=== PATIENT | female | born 1955 | race Caucasian/White ===

== ENCOUNTER 2022-04-02 12:45 | Outpatient (CLI) | payer MEDICARE, BC, SELFPAY ==
[2022-04-02 21:38] LABS: Albumin* 4.6 g/dL (3.3-5.0); Chloride* 105 mmol/L (96-114)
[2022-04-02 21:39] LABS: Potassium* 4.4 mmol/L (3.6-5.1); Sodium* 140 mmol/L (135-149)
[2022-04-02 21:41] LABS: Carbon Dioxide* 28 mmol/L (20-32); Cholesterol* 174 mg/dL (90-199); Creatinine* 0.8 mg/dL (0.5-1.5); Estimated Glomerular Filt Rate 80 ml/min
[2022-04-02 21:42] LABS: Alanine Aminotransferase* 31 U/L (4-35); Alkaline Phosphatase* 71 U/L (40-150); Aspartate Amino Transferase* 36 U/L (12-35); Bilirubin Total* 0.9 mg/dL (0.1-1.5); Blood Urea Nitrogen* 12 mg/dL (7-30); Calcium* 9.8 mg/dL (8.4-10.6); Glucose* 100 mg/dL (60-115); Triglycerides* 178 mg/dL (40-149)
[2022-04-02 21:43] LABS: HDL Cholesterol* 105 mg/dL (>=50); LDL Cholesterol Calculated 33 mg/dL (<100)
[2022-04-02 21:54] LABS: Vitamin D 25 Hydroxy* 38 ng/mL (30-80)
[2022-04-02 22:27] LABS: Vitamin B12* 479 pg/mL (243-894)
== END 2022-04-02 12:46 | disposition home or self-care (01) ==
PROVIDERS: PCP Physician Assistant Medical; Visit Provider Physician Assistant Medical
DX: Z01.419 Encounter for gynecological examination (general) (routine) without abnormal findings (principal); E78.5 Hyperlipidemia, unspecified; I10 Essential (primary) hypertension; M85.80 Other specified disorders of bone density and structure, unspecified site; R53.83 Other fatigue
CPT/HCPCS: 80053; 80061; 82306; 82607; 84443

== ENCOUNTER 2022-04-24 12:35 | Outpatient (CLI) | payer MEDICARE, BC, SELFPAY ==
--- NOTE | 2022-04-24 13:00 | CRLHL7_ITS ---
For Patients: As a result of the Century Cures Act, medical imaging exams and procedure reports are released immediately into your electronic medical record. You may view this report before your referring provider. If you have questions, please contact your health care provider. DXA BONE MINERAL DENSITY STUDY Current height (in): 63.0. Weight (lb): 160.0. Menopause age: 50. Ethnicity: White. Reason for exam: Post menopausal status. 1. Have you had a previous hip or vertebral fracture? No. 2. Have you had any fractures during your adult life which did not result from significant trauma (e.g., auto accident)? No. 3. Did either of your parents have a hip fracture? No. 4. Do you smoke? No. 5. Have you ever taken Glucocorticoids? No. 6. Do you have rheumatoid arthritis? Yes. 7. Do you have secondary osteoporosis? No. 8. Do you drink 3 or more alcoholic drinks per day? Yes. 9. Are you being treated for osteoporosis? No. 10. Have you ever taken any of the following medications: Actonel, Evista, Fosamax, Miacalcin, Reclast, Boniva, Forteo, HRT (i.e. estrogen/hormone therapy), Protelos, Prolia, Vitamin D, Calcium, other ??? please specify. ANSWER: Yes, calcium, vitamin D. 11. Do you have any of the following medical conditions: Anorexia or bulimia, asthma or emphysema, end stage renal disease, hyperparathyroidism, any seizure disorders, cancer, inflammatory bowel diseases, hysterectomy, other ??? please specify. ANSWER: No. 12. What was your maximum height (inches)? 64. 13. Do you perform weight bearing exercise regularly? Yes. 14. Do you regularly consume dairy products? Yes. 15. Do you drink caffeinated beverages? Yes. 16. At what age did your period start? 10. 17. Are you premenopausal? No. 18. How many full term pregnancies have you had? 2. 19. Have you ever missed your period for more than 6 months in a row (not including or menopause)? No. TECHNIQUE: Bone mineral density study was performed using the [employer]. FINDINGS: The results of the study expressed as bone mineral density (BMD) are as follows: Lumbar spine L1 to L4: BMD: 0.930 g/cm2. T-score: -1.1. Z-score: 1.0. Neck Left: BMD: 0.717 g/cm2. T-score: -1.2. Z-score: 0.6. Right: BMD: 0.781 g/cm2. T-score: -0.6. Z-score: 1.1. Total Left: BMD: 0.843 g/cm2. T-score: -0.8. Z-score: 0.6. Right: BMD: 0.860 g/cm2. T-score: -0.7. Z-score: 0.8. IMPRESSION: Osteopenia. *Comparison exams done prior to 09/2019 were performed on different unit, [employer]. COMPARISON: Compared with scan of 04/11/2019, the bone mineral density has increased by 2.0 percent at the spine and decreased by 0.9 percent at the hip. FRAX 10-year Fracture Risk Major Osteoporotic Fracture: 14 percent Hip Fracture: 2.1 percent Reported Risk Factors: [place] () Neck BMD = 0.717, BMI = 28.3 Reno Wilburn M.D. Diagnostic Radiologist [email or web address] Transcribed: 8:37 pm DW/Dictated by: Reno Wilburn MD @ 04/25/2022 11:27:00 AM (Electronically Signed)
== END 2022-04-24 12:36 | disposition home or self-care (01) ==
LOC: RAD 12:36
PROVIDERS: PCP Physician Assistant Medical; Visit Provider Physician Assistant Medical
DX: Z78.0 Asymptomatic menopausal state (principal); M85.89 Other specified disorders of bone density and structure, multiple sites
CPT/HCPCS: 77080

== ENCOUNTER 2022-05-06 16:10 | Outpatient (CLI) | payer MEDICARE, BC, SELFPAY ==
--- NOTE | 2022-05-06 16:15 | CRLHL7_ITS ---
For Patients: As a result of the Century Cures Act, medical imaging exams and procedure reports are released immediately into your electronic medical record. You may view this report before your referring provider. If you have questions, please contact your health care provider. BILATERAL SCREENING MAMMOGRAM WITH COMPUTER-AIDED DETECTION AND TOMOSYNTHESIS TECHNIQUE: CC and MLO views were obtained. These mammographic images have been obtained using full-field digital technique. These mammographic images were interpreted with the benefit of computer-aided detection. Breast Tomosynthesis was used in this interpretation. COMPARISON FILM: 02/26/21, 01/31/20, 01/19/19. FINDINGS: There are scattered areas of fibroglandular density IMPRESSION: There is no radiographic evidence for malignancy. ASSESSMENT: BI-RADS Category 1: Negative RECOMMENDATION: Routine screening mammogram in 1 year. A lay language report of this examination will be provided to the patient. Reno Wilburn M.D. Diagnostic Radiologist [email or web address] JUDY/Dictated by: Reno Wilburn MD @ 05/07/2022 10:51:00 AM (Electronically Signed)
== END 2022-05-06 16:11 | disposition home or self-care (01) ==
LOC: MAMMO 16:11
PROVIDERS: PCP Physician Assistant Medical; Visit Provider Physician Assistant Medical
DX: Z12.31 Encounter for screening mammogram for malignant neoplasm of breast (principal)
CPT/HCPCS: 77063; 77067

== ENCOUNTER 2022-10-27 06:07 | Outpatient (CLI) | payer MEDICARE, BC, SELFPAY ==
--- NOTE | 2022-10-27 06:26 | P.ANHP_ITS ---
HPI - Pre-Anesthesia History of Present Illness Time Seen by Provider: 06:40 Date Seen: 10/27/22 Date of service: 10/27/22 Source: patient and old records reviewed Review of Systems Status of ROS Reports: 10 or more systems reviewed and unremarkable except as noted in History and below [facility] Medical History (Updated 09/01/22 @ 07:13 by Ivan Chirinos MD) Screening due ?Z13.9 - Encounter for screening, unspecified (ICD-10) History of nuclear stress test ?Z92.89 - Personal history of other medical treatment (ICD-10) Surgical History (Updated 03/17/22 @ 15:44 by Mckenzie Hylton ~ [facility]) H/O bilateral breast reduction surgery ?Z98.890 - Other specified postprocedural states (ICD-10) S/P right knee arthroscopy (01/25/14) ?Z98.890 - Other specified postprocedural states (ICD-10) 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) ?Z96.652 - Presence of left artificial knee joint (ICD-10) Family History (Updated 03/17/22 @ 15:41 by Mckenzie Hylton ~ [facility]) Mother Heart disease Stroke Sister Heart disease Pancreatic cancer Social History Smoking Status: Never smoker Little interest or pleasure in doing things: several days Feeling down, depressed, or hopeless: several days Meds Home Medications and Allergies Home Medications Medication Instructions Recorded Confirmed Type calcium carb-ergocalciferol (vit tab PO 03/17/22 10/23/22 History D2) 600 mg calcium-200 unit tablet celecoxib 200 mg capsule 200 mg PO QDAY 03/17/22 10/23/22 History folic acid 1 mg tablet 1 mg PO QDAY 03/17/22 10/23/22 History methotrexate sodium 2.5 mg tablet 20 mg PO QWEEK 03/17/22 10/23/22 History multivitamin (Multiple Vitamins 1 tab PO QDAY 03/17/22 10/23/22 History tablet) Allergies Allergy/AdvReac Type Severity Reaction Status Date / Time No Known Drug Allergies Allergy Verified 10/23/22 11:27 Exam Const Documenting provider has reviewed patient's vital signs: yes Common normals: no apparent distress, oriented x3, healthy appearing, alert and well nourished General appearance: cooperative and comfortable Orientation/consciousness: Yes awake HENMT Common normals: normocephalic Head and scalp: normocephalic Neck & C-Spine Common normals: full ROM Chest Chest: symmetrical chest wall rise Resp Common normals: normal respiratory effort, no retractions, no use of accessory muscles and clear to auscultation bilaterally Auscultation: clear to auscultation bilaterally Cardio Common normals: regular rate, regular rhythm, S1 normal heart sound, S2 normal heart sound and no murmurs Rate: regular rate Rhythm: regular rhythm Heart sounds: S1 normal and S2 normal Neuro Common normals: oriented x3 Sensorium/orientation: awake and alert Assessment and Plan Assessment and plan (1) Screening due: Status: Acute Plan ok to proceed with colonoscopy with sedation
--- NOTE | 2022-10-27 06:26 | W.ANESCHARGE ---
Anesthesia Charges Start Date/Time Anesthesia Start Date: 10/27/22 Anesthesia Start Time: 07:17 Stop Date/Time Anesthesia Stop Date: 10/27/22 Anesthesia Stop Time: 07:45
--- NOTE | 2022-10-27 07:46 | W.ANESCHARGE ---
Anesthesia Charges Start Date/Time Anesthesia Start Date: 10/27/22 Anesthesia Start Time: 07:17 Stop Date/Time Anesthesia Stop Date: 10/27/22 Anesthesia Stop Time: 07:45
== END 2022-10-27 06:08 | disposition home or self-care (01) ==
LOC: OP CLINIC 06:08
PROVIDERS: PCP Physician Assistant Medical; Visit Provider Internal Medicine
DX: Z12.11 Encounter for screening for malignant neoplasm of colon (principal); K63.5 Polyp of colon
CPT/HCPCS: 00811; 45385; 88305; J2704

== ENCOUNTER 2022-11-25 22:31 | Emergency (ER) | payer MEDICARE, BC, SELFPAY ==
--- NOTE | 2022-11-25 22:34 | CRLHL7_ITS ---
For Patients: As a result of the Cures Act, medical imaging exams and procedure reports are released immediately into your electronic medical record. You may view this report before your referring provider. If you have questions, please contact your health care provider. INDICATION: Fall, injury fall -MISSED a step TECHNIQUE: Tibia-fibula radiograph 2 views left COMPARISON: None FINDINGS: Bone: There is a displaced fracture in the distal tibial diaphysis and a comminuted fracture of the lateral malleolus noted. An intra-articular fracture in the posterior tibial malleolus is suspected. Joint: A total knee arthroplasty is partially visualized. No significant joint effusion is seen. Soft tissue: Unremarkable. No radiopaque foreign bodies are seen. IMPRESSIONS: 1. There is a displaced fracture in the distal tibial diaphysis and a comminuted fracture of the lateral malleolus noted. 2. An intra-articular fracture in the posterior tibial malleolus is suspected. Dictated by Tl Serna MD @ 11/25/2022 11:42:14 PM Dictated by: Tl Serna MD @ 11/25/2022 23:42:18 (Electronically Signed)
--- NOTE | 2022-11-25 22:34 | CRLHL7_ITS ---
For Patients: As a result of the Cures Act, medical imaging exams and procedure reports are released immediately into your electronic medical record. You may view this report before your referring provider. If you have questions, please contact your health care provider. INDICATION: Fall, knee injury fall -MISSED a step TECHNIQUE: Knee radiograph 2 views left COMPARISON: None FINDINGS: Bone: No acute fractures or aggressive bone lesions are identified. Joint: The patient is status post a total knee arthroplasty with patellar resurfacing. No radiographic evidence of asymmetric polyethylene wear, prosthetic loosening or infection is seen. No significant knee effusion is seen. Soft tissue: Unremarkable. No radiopaque foreign bodies are seen. IMPRESSION: 1. There is an unremarkable appearance of the knee arthroplasty. Dictated by: Tl Serna MD @ 11/25/2022 23:43:19 (Electronically Signed)
--- NOTE | 2022-11-25 22:34 | CRLHL7_ITS ---
For Patients: As a result of the Century Cures Act, medical imaging exams and procedure reports are released immediately into your electronic medical record. You may view this report before your referring provider. If you have questions, please contact your health care provider. INDICATION: Fall, foot injury fall -MISSED a step TECHNIQUE: Foot radiograph 3 views left COMPARISON: None FINDINGS: Bone: No acute fractures or aggressive bone lesions are identified in the foot. Fracture of the lateral malleolus is noted and discussed in separate report. 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 No significant ankle effusion is seen. Soft tissue: Unremarkable. No radiopaque foreign bodies are seen. IMPRESSION: 1. No acute osseous injuries or abnormalities are noted in the foot. Dictated by Tl Serna MD @ 11/25/2022 11:39:59 PM Dictated by: Tl Serna MD @ 11/25/2022 23:40:05 (Electronically Signed)
--- NOTE | 2022-11-25 22:34 | CRLHL7_ITS ---
For Patients: As a result of the Century Cures Act, medical imaging exams and procedure reports are released immediately into your electronic medical record. You may view this report before your referring provider. If you have questions, please contact your health care provider. INDICATION: Fall, ankle injury fall -MISSED a step TECHNIQUE: Ankle radiograph 3 views left COMPARISON: None FINDINGS: Bone: There is a nondisplaced oblique fracture present in the malleolus. A fracture in the distal tibial diaphysis is present with the distal fragment displaced laterally by 11 mm. Joint: The ankle mortise joint and the visualized hindfoot joints are unremarkable in appearance. No significant ankle effusion is seen. Soft tissue: The Kager fat pad and the Achilles` tendon is normal in appearance. No radiopaque foreign bodies are seen. IMPRESSION: 1. There is a nondisplaced oblique fracture present in the malleolus. A fracture in the distal tibial diaphysis is present with the distal fragment displaced laterally by 11 mm. Dictated by Tl Serna MD @ 11/25/2022 11:41:03 PM Dictated by: Tl Serna MD @ 11/25/2022 23:41:06 (Electronically Signed)
[2022-11-25 22:36] VITALS: BP 99/64; PULSE 84; RESP 16; TEMP 36.6; O2SAT 98; BMI 27.5
--- NOTE | 2022-11-25 22:42 | ED_ITS ---
HPI - General Adult General Time Seen by Provider: 22:43 <Mich Merino - Last Filed: 11/26/22 00:33> Date Seen: 11/25/22 <Mich Merino - Last Filed: 11/26/22 00:33> Chief complaint: Extremity Pain/Injury, Lower <Mich Merino - Last Filed: 11/26/22 00:33> Stated complaint: leg injury <Mich Merino - Last Filed: 11/26/22 00:33> Time Seen by Provider: 11/25/22 22:32 <Mich Merino - Last Filed: 11/26/22 00:33> Source: patient <Mich Barfieldsamantha - Last Filed: 11/26/22 00:33> Mode of arrival: EMS <Mich Merino - Last Filed: 11/26/22 00:33> Limitations: no limitations <Mich Merino - Last Filed: 11/26/22 00:33> History of Present Illness HPI narrative: Patient is a 67-year-old female presented emergency department for left ankle pain. She states she was walking on some steps when she tripped and fell twisting her ankle. She denies hitting her head. She is not in pain to her left mid foot, ankle, distal tib-fib. Denies ever injuring her leg in the past. Denies knee pain or hip pain. Shows good pulses. Denies numbness to that foot at this time. Denies any lightheadedness or dizziness leading to the fall states it was all because she tripped. She received 50 mg of fentanyl by EMS. No other concerns at this time. <Mich Merino DO - Last Filed: 11/26/22 00:33> Related Data Home medications: Home Medications Medication Instructions Recorded Confirmed calcium carb-ergocalciferol (vit tab PO 03/17/22 10/23/22 D2) 600 mg calcium-200 unit tablet celecoxib 200 mg capsule 200 mg PO QDAY 03/17/22 11/25/22 folic acid 1 mg tablet 1 mg PO QDAY 03/17/22 11/25/22 methotrexate sodium 2.5 mg tablet 20 mg PO QWEEK 03/17/22 11/25/22 multivitamin (Multiple Vitamins 1 tab PO QDAY 03/17/22 10/23/22 tablet) Previous Rx's Medication Instructions Recorded amlodipine 10 mg tablet 10 mg PO QDAY #90 tabs 04/04/22 losartan 25 mg tablet 25 mg PO QDAY #90 tabs 04/04/22 metoprolol succinate 50 mg 50 mg PO QDAY #90 tabs 04/04/22 tablet,extended release 24 hr omeprazole 20 mg capsule,delayed 20 mg PO QDAY #90 caps 04/04/22 release rosuvastatin 20 mg tablet 20 mg PO QDAY #90 tabs 04/04/22 sertraline 50 mg tablet 50 mg PO QDAY #90 tabs 04/04/22 peg 3350-electrolytes 236 4,000 ml PO DIRECTED Screening 09/01/22 gram-22.74 gram-6.74 gram-5.86 due #2 mL gram solution (Golytely) <Mich Merino DO - Last Filed: 11/26/22 00:33> Allergies/adverse reactions: Allergies Allergy/AdvReac Type Severity Reaction Status Date / Time No Known Drug Allergies Allergy Verified 10/27/22 07:19 <Mich Merino DO - Last Filed: 11/26/22 00:33> Review of Systems Narrative: Otherwise negative unless stated in HPI <Mich Merino DO - Last Filed: 11/26/22 00:33> [facility] Medical History: Medical History (Updated 11/25/22 @ 23:59 by Mich Merino DO) Screening due ?Z13.9 - Encounter for screening, unspecified (ICD-10) History of nuclear stress test ?Z92.89 - Personal history of other medical treatment (ICD-10) <Mich Merino DO - Last Filed: 11/26/22 00:33> Surgical History: Surgical History (Updated 03/17/22 @ 15:44 by Mckenzie Hylton ~ AN/SQQ 89(V)15 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 SYSTEM 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, AN/SQQ 89(V)15 SONAR SYSTEM JOURNEYMAN) H/O bilateral breast reduction surgery ?Z98.890 - Other specified postprocedural states (ICD-10) S/P right knee arthroscopy (01/25/14) ?Z98.890 - Other specified postprocedural states (ICD-10) 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) ?Z96.652 - Presence of left artificial knee joint (ICD-10) <Mich Merino - Last Filed: 11/26/22 00:33> Family History: Family History (Updated 03/17/22 @ 15:41 by Mckenzie Hylton ~ [facility]) Mother Heart disease Stroke Sister Heart disease Pancreatic cancer <Mich Merino DO - Last Filed: 11/26/22 00:33> Social History: Social History Smoking Status: Never smoker How often do you have a drink containing alcohol: monthly or less AUDIT-C Alcohol total score: 1 Non-prescribed substance use: denies use Little interest or pleasure in doing things: several days Feeling down, depressed, or hopeless: several days <Mich Merino - Last Filed: 11/26/22 00:33> Exam Narrative: Exam Narrative: Const: Well-nourished, Well-developed, in mild distress Eyes: PERRL, no conjunctival injection, and symmetrical lids ENMT: Atraumatic external nose and ears. Moist mucous membranes. MSK: Decreased range of motion to the left ankle. No obvious deformities. Tenderness noted to the left mid foot, ankle, distal tib-fib. No tenderness noted to the left knee or left hip. No other injuries noted Skin: Warm, Dry. No rashes or lesions. Neuro: Normal Muscle tone, No focal neurological deficits. Psych: Awake, Alert, & Oriented x3. Appropriate mood and affect. <Mich Merino, DO - Last Filed: 11/26/22 00:33> Const: Vital Signs, click to edit/add: Vital Signs - 24 hr 11/25/22 22:36 11/26/22 00:00 11/26/22 00:23 Temperature 97.8 F 97.8 F Pulse Rate [Bilate ral Dorsalis Pedis ] 76 Pulse Rate [Left P ulse Oximeter] 84 76 Respiratory Rate 16 16 Blood Pressure [Ri ght Upper Arm] 99/64 108/70 Pulse Oximetry 98 97 Oxygen Delivery Me thod Room Air Room Air <Mich Merino DO - Last Filed: 11/26/22 00:33> Vital Signs, click to edit/add: Vital Signs - 24 hr 11/25/22 22:36 11/26/22 00:00 11/26/22 00:23 Temperature 97.8 F 97.8 F Pulse Rate [Bilate ral Dorsalis Pedis ] 76 Pulse Rate [Left P ulse Oximeter] 84 76 Respiratory Rate 16 16 Blood Pressure [Ri ght Upper Arm] 99/64 108/70 Pulse Oximetry 98 97 Oxygen Delivery Me thod Room Air Room Air <Carmella Berry MD - Last Filed: 11/26/22 00:59> Course Reevaluation(s) Time of Reevaluation #1: 00:50 <Carmella Berry MD - Last Filed: 11/26/22 00:59> Reevaluation #1: I assumed care from my outgoing partner. Patient with complicated tibia, fibula, posterior malleolus fracture. Our ortho team is recommending transfer. Patient has been placed in posterior long-leg splint with good pulses present. Multiple tertiary care centers were contacted, unfortunately, most do not have ability to accept patient due to staffing issues. Was able to get patient acceptance to the ED at [facility], as they are accepting traumas only at this time. Patient is agreeable to transfer, Understanding of rationale. Verbalizes understanding and agreement of plan. Patient will jorge sfer by ALS ground to [facility] [place] for further management of complicated ankle fracture. Imaging, x-ray, vitals all reviewed. No labs collected. Last meal 6:30 p.m.. No anticoagulation, spoke with Dr. Arcos <Carmella Berry MD - Last Filed: 11/26/22 00:59> Vital Signs Vital signs: Initial Vital Signs Temperature 97.8 F 11/25/22 22:36 Temperature Source Temporal Artery Scan 11/25/22 22:36 Pulse Rate 84 11/25/22 22:36 Respiratory Rate 16 11/25/22 22:36 Blood Pressure 99/64 11/25/22 22:36 Blood Pressure Mean 75 11/25/22 22:36 Blood Pressure Position Sitting 11/25/22 22:36 Pulse Oximetry 98 11/25/22 22:36 Oxygen Delivery Method Room Air 11/25/22 22:36 Vital Signs Temperature 97.8 F 11/25/22 22:36 Pulse Rate 84 11/25/22 22:36 Respiratory Rate 16 11/25/22 22:36 Blood Pressure 99/64 11/25/22 22:36 Pulse Oximetry 98 11/25/22 22:36 Oxygen Delivery Method Room Air 11/25/22 22:36 Temperature 97.8 F 11/26/22 00:23 Pulse Rate 76 11/26/22 00:23 Respiratory Rate 16 11/26/22 00:23 Blood Pressure 108/70 11/26/22 00:23 Pulse Oximetry 97 11/26/22 00:23 Oxygen Delivery Method Room Air 11/26/22 00:23 <Mich Merino DO - Last Filed: 11/26/22 00:33> Initial Vital Signs Temperature 97.8 F 11/25/22 22:36 Temperature Source Temporal Artery Scan 11/25/22 22:36 Pulse Rate 84 11/25/22 22:36 Respiratory Rate 16 11/25/22 22:36 Blood Pressure 99/64 11/25/22 22:36 Blood Pressure Mean 75 11/25/22 22:36 Blood Pressure Position Sitting 11/25/22 22:36 Pulse Oximetry 98 11/25/22 22:36 Oxygen Delivery Method Room Air 11/25/22 22:36 Vital Signs Temperature 97.8 F 11/25/22 22:36 Pulse Rate 84 11/25/22 22:36 Respiratory Rate 16 11/25/22 22:36 Blood Pressure 99/64 11/25/22 22:36 Pulse Oximetry 98 11/25/22 22:36 Oxygen Delivery Method Room Air 11/25/22 22:36 Temperature 97.8 F 11/26/22 00:23 Pulse Rate 76 11/26/22 00:23 Respiratory Rate 16 11/26/22 00:23 Blood Pressure 108/70 11/26/22 00:23 Pulse Oximetry 97 11/26/22 00:23 Oxygen Delivery Method Room Air 11/26/22 00:23 <Carmella Berry MD - Last Filed: 11/26/22 00:59> Medical Decision Making MDM Narrative Medical decision making narrative: Patient is 67-year-old female presented emergency department for left leg pain. She states she was walking up some steps when she thinks she missed the last step tripping and falling on the landing. She denies hitting her head. She is unable to put any pressure on the left leg secondary to pain. There is tenderness to palpation noted to the left foot, ankle, distal tib-fib. Patient given morphine for pain which she says helped her symptoms. X-rays of the left ankle, foot, tib/fib, knee were all ordered. X-ray showed no acute abnormalities of the foot. There is a comminuted fracture of lateral malleolus and a nondisplaced fracture of the posterior malleolus along with in oblique fracture through the distal tibia with 11 mm of displacement. The oblique fracture has a very short point on it which is concerning of or displacement could cause further injury. She is neurovascular intact at this time is showing no signs of compartment syndrome. A posterior long-leg and stirup splint was placed without complications. We spoke to Orthopedics in due to the complicated nature of her injury they recommended transfer to a higher level of care. Patient's 1st choice is to be transferred to [facility]. Her last meal was at 18:30. Patient is pending transfer to the end of my shift <Mich Merino DO - Last Filed: 11/26/22 00:33> Lab Data Lab results narrative: No labs connected, nor needed <Carmella Berry MD - Last Filed: 11/26/22 00:59> Imaging Data X-ray tib-fib, ankle: Attestation: I have reviewed the pertinent imaging results. <Carmella Berry MD - Last Filed: 11/26/22 00:59> My impression: Significant fracture <Carmella Berry MD - Last Filed: 11/26/22 00:59> Radiologist's impression: IMPRESSIONS: 1. There is a displaced fracture in the distal tibial diaphysis and a comminuted fracture of the lateral malleolus noted. 2. An intra-articular fracture in the posterior tibial malleolus is suspected. <Carmella Berry MD - Last Filed: 11/26/22 00:59> X-ray knee: Attestation: I have reviewed the pertinent imaging results. <Carmella Berry MD - Last Filed: 11/26/22 00:59> My impression: Normal TKA <Carmella Berry MD - Last Filed: 11/26/22 00:59> Radiologist's impression: IMPRESSION: 1. There is an unremarkable appearance of the knee arthroplasty. <Carmella Berry MD - Last Filed: 11/26/22 00:59> Discharge Plan Discharge Clinical Impression: Fracture, tibia and fibula Qualifiers: Encounter type: initial encounter Fracture type: closed Laterality: left Qualified Code(s): S82.202A - Unspecified fracture of shaft of left tibia, initial encounter for closed fracture Ankle fracture Qualifiers: Encounter type: initial encounter Fracture type: closed Laterality: left Qualified Code(s): S82.892A - Other fracture of left lower leg, initial encounter for closed fracture <Mich Merino DO - Last Filed: 11/26/22 00:33> Patient Disposition: Xfer Other <Mich Merino DO - Last Filed: 11/26/22 00:33> Discharge Location: [facility] <Mich Merino DO - Last Filed: 11/26/22 00:33> Condition: Stable <Mich Merino DO - Last Filed: 11/26/22 00:33> Prescriptions: No Action methotrexate sodium 2.5 mg tablet 20 mg PO QWEEK celecoxib 200 mg capsule 200 mg PO QDAY folic acid 1 mg tablet 1 mg PO QDAY multivitamin [Multiple Vitamins] Tablet 1 tab PO QDAY calcium carbonate-vitamin D2 600 mg calcium- 200 unit tablet PO amlodipine 10 mg tablet 10 mg PO QDAY Qty: 90 3RF losartan 25 mg tablet 25 mg PO QDAY Qty: 90 3RF metoprolol succinate 50 mg tablet extended release 24 hr 50 mg PO QDAY Qty: 90 3RF omeprazole 20 mg capsule,delayed release(DR/EC) 20 mg PO QDAY Qty: 90 3RF rosuvastatin 20 mg tablet 20 mg PO QDAY Qty: 90 3RF sertraline 50 mg tablet 50 mg PO QDAY Qty: 90 3RF peg 3350-electrolytes [Golytely] 236-22.74-6.74 -5.86 gram recon soln 4,000 ml PO DIRECTED Qty: 2 0RF Rx Instructions: 2 days prior to scopes, between 4 and 6 p.m., drink 8 oz glass every 15 minutes until half a gallon is gone. 1 day before procedure at 9am drink 8oz glass every 15 minutes until remaining solution from 1st bottle is gone. Between 4-6pm drink 8oz glass of solution every 15 minutes until 1/2 of the solution is gone. Day of procedure 6 hours prior Drink 1 8oz glass of solution every 15 minutes until 1/2 of the solution from the 2nd bottle is gone. <Mich Merino DO - Last Filed: 11/26/22 00:33> Stand Alone Forms: My[facility] Info Instructions <Mich Merino DO - Last Filed: 11/26/22 00:33>
[2022-11-25] MEDS: MORPHINE 4 MG/ML INJ IVP (22:50)
[2022-11-26] VITALS: PULSE 76
[2022-11-26 00:23] VITALS: BP 108/70; PULSE 76; RESP 16; TEMP 36.6; O2SAT 97
[2022-11-26] MEDS: 0.9 % SODIUM CHLORIDE 1000 ml 1,000 ML 125 ML IV (00:50)
[2022-11-26] MEDS: MORPHINE 2 MG/ML inj 4 MG IVP (00:50)
--- NOTE | 2022-11-26 01:14 | ED.NURSE ---
report to [facility] ems, transfer to [facility].
== END 2022-11-26 01:14 | disposition other institution (70) ==
PROVIDERS: Emergency Provider Family Medicine; PCP Physician Assistant Medical
DX: S82.52XA Displaced fracture of medial malleolus of left tibia, initial encounter for closed fracture (principal); S82.402A Unspecified fracture of shaft of left fibula, initial encounter for closed fracture; X50.1XXA Overexertion from prolonged static or awkward postures, initial encounter
CPT/HCPCS: 29505; 73560; 73590; 73610; 73630; 96372; 96374; 99283; 99284; J2270; J7030

== ENCOUNTER 2022-11-26 01:03 | Outpatient (CLI) | payer MEDICARE, BC, SELFPAY | END 2022-11-26 01:04 | disposition home or self-care (01) | LOC: AMB 11-27 08:23 | PROVIDERS: PCP Physician Assistant Medical; Visit Provider Family Medicine | DX: S82.209D Unspecified fracture of shaft of unspecified tibia, subsequent encounter for closed fracture with routine healing (principal) | CPT/HCPCS: A0425; A0426; A0434 ==

== ENCOUNTER 2023-02-19 13:45 | Outpatient (RCR) | payer MEDICARE, BC, SELFPAY | END 2023-05-18 15:56 | disposition home or self-care (01) | PROVIDERS: PCP Physician Assistant Medical; Visit Provider Physician Assistant | DX: Z98.890 Other specified postprocedural states (principal); Z51.89 Encounter for other specified aftercare | CPT/HCPCS: 97110; 97140; 97162 ==

== ENCOUNTER 2023-05-01 09:00 | Outpatient (CLI) | payer MEDICARE, BC, SELFPAY ==
--- OUTSIDE RECORDS SUMMARY | 2023-05-07 15:54 | XMS_ITS | Encounter Summary ---
Author Name Unknown Organization [facility] Address [address] [place] [address] Care Team Providers Care Boiler Repairman Name Role Phone Greg Bettencourt MD Primary Care Provider [phone] Reason for Visit * Reason Comments Other Thoracic Aortic Aneu rysm * Procedure/Equipment (Routine) - Closed Specialty Diagnoses / Procedures Referred By Fide t Referred To Contact Diagnoses Thoracic aortic aneurysm without rupture (HRC) Procedures Echocardiogram Winston Epps MD [address] [place] [address] Referral ID Status Reason Start Date Expiration Date Visits Re quested Visits Authorized [id number] Closed 09/20/2021 12/20/2022 1 1 Encounter Details Date Type Department Care Team Description 06/09/2022 10:00 AM ROLL EDGE MACHINE OPERATOR Procedure Visit [facility] [address] [facility] Cardiology [address] [place] [address] Other (Thoracic Aortic Aneurysm) Social History Tobacco Use Types Packs/Day Years Used Date Smoking Tobacco: Never Smokeless Tobacco: Never Alcohol Use Standard Drinks/Week Comments Yes 7 (1 standard drink = 0.6 oz pur e alcohol) Sex and Gender Information Value Date Recorded Sex Assigned at Not on file Gender Identity Not on file Sexual Orientation Not on file documented as of this encounter Progress Notes * Geraldine Quiles - 06/09/2022 10:00 AM CST Test completed. EDGE MACHINE OPERATOR documented in this encounter Plan of Treatment Upcoming Encounters Date Type Department Care Team Description 05/27/2023 9:45 AM ROLL EDGE MACHINE OPERATOR Appointment [facility] [address] [place] [address] Hans Gasca MD [facility] [place] [address] documented as of this encounter Procedures Procedure Name Priority Date/Time Associated Diagnosis Comments ECHOCARDIOGRAM Routine 06/09/2022 9:49 AM ROLL EDGE MACHINE OPERATOR Thoracic aortic aneurysm without rupture, unspecified part documented in this encounter Results * Echocardiogram (06/09/2022 9:49 AM ROLL EDGE MACHINE OPERATOR) 06/09/2022 9:49 AM ROLL EDGE MACHINE OPERATOR Narrative PN ECHO - 06/09/2022 11:05 AM ROLL EDGE MACHINE OPERATOR ECHOCARDIOGRAM. Date: 06/09/2022 Start: 09:49 AM Facility: [facility] CONCLUSIONS Left ventricular ejection fraction is visually estimated at 60%. Mild dilation of the aorta is present involving the ascending aorta. (Maximal dimension 4.3 cm). Compared to the previous study dated 02/16/20, there is no change. FINDINGS MITRAL VALVE Normal mitral valve structure and function. AORTIC VALVE The aortic valve is tricuspid. There is mild aortic sclerosis without evidence of aortic stenosis. TRICUSPID VALVE Normal tricuspid valve structure and function. The peak velocity of the tricuspid regurgitant jet is 2.5 m/sec, corresponding to a right ventricular/right atrial pressure difference of 26 mmHg. PULMONIC VALVE Normal pulmonic valve structure and function. LEFT ATRIUM Left atrial volume index is 36 mL/m^2. (Mildly abnormal 35-41mL/m^2). LEFT VENTRICLE Left ventricular chamber size is normal. Normal left ventricular wall thickness. Global and regional left ventricular function is normal. Left ventricular ejection fraction is visually estimated at 60%. Normal left ventricular diastolic function. RIGHT ATRIUM Normal right atrium. RIGHT VENTRICLE Right ventricular wall thickness is increased. Global right ventricular systolic function is normal (TAPSE >16 mm). PERICARDIAL EFFUSION Epicardial fat is noted. MISCELLANEOUS Mild dilation of the aorta is present involving the ascending aorta. (Maximal dimension 4.3 cm). The inferior vena cava is normal suggesting normal RA pressure. M-MODE/2D MEASUREMENTS & CALCULATIONS LV Diastolic Dimension: 5.32 cm LV PW Diastolic: 1 cm Septum Diastolic: 0.98 cm ?LA Dimension: 3.7 cm ?LA Area: 19.2 cm^2 LV Systolic Dimension: 3.52 cm ? Ascending Aorta: 4.2 cm LV Volume Diastolic: 140 ml ?LA volume index: 35.9 LV Volume Systolic: 41.8 ml ?ml/m^2 LV EDV/LV EDV Index: 140 ml/78 m^2 LV ESV/LV ESV Index: 41.8 ml/23 m^2EF ?IVC Inspiration: 0.77 cm Estimated: 60 % ?IVC Expiration: 1.57 cm LVOT: 2.1 cm DOPPLER MEASUREMENTS & CALCULATIONS MV Peak E-Wave: 0.6 m/s MV Peak A-Wave: 0.7 m/s MV E/A Ratio: 0.9 MV Peak Gradient: 1.56 mmHg MV Deceleration Time: 250 msec E' Velocity: 0.06 m/s ? TR Velocity:2.3 m/s ? TR Gradient:21.2 mmHg PROCEDURE Doppler Quality: Adequate quality pulse, continuous wave, and color Doppler was performed and interpreted. 2-D Quality: Suboptimal quality 2-dimensional echo was performed and interpreted. Indications: Thoracic Aortic Aneurysm Without Rupture. Contrast Medium: Not Applicable. Height: 64 inches Weight: 164 pounds BSA: 1.8 m^2 BMI: 28.15 kg/m^2 Rhythm: Sinus HR: 65 bpm BP: 142/87 mmHg Gender: ?Female SIGNATURE DEMOGRAPHICS Patient Name ??MORAIMA Butler Room Number ? OUTPT Patient ? [id number] ?Date of Study ? 06/09/2022 Number Accession ? [id number] ?Interpreting ?JOSEFA MIKE MD Number ?Provider Date of 1955 ?Ordering Provider WINSTON Bryan ? MD MICH Primary ? WINSTON Bryan ? Hot Mill Operator ? [facility] Provider ?MD MICH The procedure was explained in detail to the patient. Risks, complications and alternative treatments were reviewed. Informed consent was obtained. Procedure Note Josefa Mike MD - 06/09/2022 ECHOCARDIOGRAM. Date: 06/09/2022 Start: 09:49 AM Facility: [facility] Left ventricular ejection fraction is visually estimated at 60%. Mild dilation of the aorta is present involving the ascending aorta. (Maximal dimension 4.3 cm). Compared to the previous study dated 02/16/20, there is no change. FINDINGS MITRAL VALVE Normal mitral valve structure and function. AORTIC VALVE The aortic valve is tricuspid. There is mild aortic sclerosis without evidence of aortic stenosis. TRICUSPID VALVE Normal tricuspid valve structure and function. The peak velocity of the tricuspid regurgitant jet is 2.5 m/sec, corresponding to a right ventricular/right atrial pressure difference of 26 mmHg. PULMONIC VALVE Normal pulmonic valve structure and function. LEFT ATRIUM Left atrial volume index is 36 mL/m^2. (Mildly abnormal 35-41mL/m^2). LEFT VENTRICLE Left ventricular chamber size is normal. Normal left ventricular wall thickness. Global and regional left ventricular function is normal. Left ventricular ejection fraction is visually estimated at 60%. Normal left ventricular diastolic function. RIGHT ATRIUM Normal right atrium. RIGHT VENTRICLE Right ventricular wall thickness is increased. Global right ventricular systolic function is normal (TAPSE >16 mm). PERICARDIAL EFFUSION Epicardial fat is noted. MISCELLANEOUS Mild dilation of the aorta is present involving the ascending aorta. (Maximal dimension 4.3 cm). The inferior vena cava is normal suggesting normal RA pressure. M-MODE/2D MEASUREMENTS & CALCULATIONS LV Diastolic Dimension: 5.32 cm LV PW Diastolic: 1 cm Septum Diastolic: 0.98 cm LA Dimension: 3.7 cm LA Area: 19.2 cm^2 LV Systolic Dimension: 3.52 cm Ascending Aorta: 4.2 cm LV Volume Diastolic: 140 ml LA volume index: 35.9 LV Volume Systolic: 41.8 ml ml/m^2 LV EDV/LV EDV Index: 140 ml/78 m^2 LV ESV/LV ESV Index: 41.8 ml/23 m^2EF IVC Inspiration: 0.77 cm Estimated: 60 % IVC Expiration: 1.57 cm LVOT: 2.1 cm DOPPLER MEASUREMENTS & CALCULATIONS MV Peak E-Wave: 0.6 m/s MV Peak A-Wave: 0.7 m/s MV E/A Ratio: 0.9 MV Peak Gradient: 1.56 mmHg MV Deceleration Time: 250 msec E' Velocity: 0.06 m/s TR Velocity:2.3 m/s TR Gradient:21.2 mmHg PROCEDURE Doppler Quality: Adequate quality pulse, continuous wave, and color Doppler was performed and interpreted. 2-D Quality: Suboptimal quality 2-dimensional echo was performed and interpreted. Indications: Thoracic Aortic Aneurysm Without Rupture. Contrast Medium: Not Applicable. Height: 64 inches Weight: 164 pounds BSA: 1.8 m^2 BMI: 28.15 kg/m^2 Rhythm: Sinus HR: 65 bpm BP: 142/87 mmHg Gender: Female SIGNATURE DEMOGRAPHICS Patient Name MORAIMA Butler Room Number OUTPT Patient [id number] Date of Study 06/09/2022 Number Interpreting JOSEFA MIKE MD Number Provider Date of 1955 Ordering Provider WINSTON EPPS MD Primary WINSTON Bryan Hot Mill Operator JS, [facility] Provider MD MICH The procedure was explained in detail to the patient. Risks, complications and alternative treatments were reviewed. Informed consent was obtained. Winston Epps MD ET ECHO ORDERABLE S PN ECHO documented in this encounter Visit Diagnoses Diagnosis Thoracic aortic aneurysm without rupture, unspecified part (HRC) documented in this encounter Care Teams Boiler Repairman Relationship Specialty Start Date End Date Greg Bettencourt MD [address] [place] [address] PCP - General 03/21/13 documented as of this encounter
--- OUTSIDE RECORDS SUMMARY | 2023-05-07 15:54 | XMS_ITS | Encounter Summary ---
Author Name Unknown Organization [facility] Address [address] [place] [address] Care Team Providers Care Director Insurance Name Role Phone Greg Bettencourt MD Primary Care Provider [phone] Reason for Visit * Reason Comments Refill Encounter Details Date Type Department Care Team Description 06/05/2022 Refill [facility] [address] [place], [place] [id number] Cruz Gasca MD [facility] [place] [address] Refill Social History Tobacco Use Types Packs/Day Years Used Date Smoking Tobacco: Never Smokeless Tobacco: Never Alcohol Use Standard Drinks/Week Comments Yes 7 (1 standard drink = 0.6 oz pur e alcohol) Sex and Gender Information Value Date Recorded Sex Assigned at Not on file Gender Identity Not on file Sexual Orientation Not on file documented as of this encounter Nursing Notes * Marina Hughes RN - 06/05/2022 7:57 AM CST LV: 05/12/22 NV: 11/12/22 Patient had CBC, Creatinine, and ALT labs on 05/09/22 and values were within refill range. Renewed medication per medication refill standing order. Requested Prescriptions Signed Prescriptions Disp Refills methotrexate 2.5 MG tablet 84 Tablet 1 Sig: TAKE 7 TABLETS BY MOUTH ONCE EVERY WEEK. 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 Authorizing Provider: CRUZ GASCA Ordering User: MARINA HUGHES IRATORY EQUIPMENT ASSISTANT documented in this encounter Plan of Treatment Upcoming Encounters Date Type Department Care Team Description 05/27/2023 9:45 AM RESPIRATORY EQUIPMENT ASSISTANT Appointment [facility] [address] [place] [address] Cruz Gasca MD [address] [place] [address] documented as of this encounter Visit Diagnoses Not on filedocumented in this encounter Care Teams Director Insurance Relationship Specialty Start Date End Date Greg Bettencourt MD [address] [place] [address] PCP - General 03/21/13 documented as of this encounter
--- OUTSIDE RECORDS SUMMARY | 2023-05-07 15:54 | XMS_ITS | Encounter Summary ---
Author Name Unknown Organization [facility] Address [address] [place] [address] Care Team Providers Care Acoustical Engineer Name Role Phone Greg Bettencourt MD Primary Care Provider [phone] Reason for Referral * (Routine) - New Request Specialty Diagnoses / Procedures Referred By Fide t Referred To Contact Diagnoses Primary osteoarthritis of both first carpometacarpal joints Procedures Triamcinolone Acet Inj Nos: (per 10 mg) Hans Gasca MD [address] [place] [address] Referral ID Status Reason Start Date Expiration Date V isits Requested Visits Authorized [id number] New Request 05/12/2022 08/11/2023 1 1 MICS TECHNICIAN Reason for Visit * Reason Comments Follow-up Encounter Details Date Type Department Care Team Description 05/12/2022 1:15 PM CERAMICS TECHNICIAN Office Visit [facility] [address] [place] [address] Hans Gasca MD [address] [place] [address] CREST syndrome (HRC) (Primary Dx); Inflammatory polyarthropathy (HRC); Primary osteoarthritis of both first carpometacarpal joints; residential current use of therapeutic drug Social History Tobacco Use Types Packs/Day Years Used Date Smoking Tobacco: Never Smokeless Tobacco: Never Alcohol Use Standard Drinks/Week Comments Yes 7 (1 standard drink = 0.6 oz pur e alcohol) Sex and Gender Information Value Date Recorded Sex Assigned at Not on file Gender Identity Not on file Sexual Orientation Not on file documented as of this encounter Last Filed Vital Signs Vital Sign Reading Time Taken Comments Blood Pressure 142/87 05/12/2022 1:07 PM CERAMICS TECHNICIAN Pulse 79 05/12/2022 1:07 PM CERAMICS TECHNICIAN Temperature 36.2 ??C (97.1 ??F) 05/12/2022 1:07 PM CS T Respiratory Rate - - Oxygen Saturation - - Inhaled Oxygen Concentration - - Weight 74.8 kg (164 lb 14.4 oz) 05/12/2022 1:07 PM CERAMICS TECHNICIAN Height - - Body Mass Index 28.31 02/20/2021 8:09 AM CDT documented in this encounter Progress Notes * Hans Gasca MD - 05/12/2022 1:15 PM CST RHEUMATOLOGY RECHECK This note was generated with voice activated auto mechanics instructor software and may contain typographical and word substitution errors. 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 She has been on methotrexate in hopes of preventing any progressive skin tightening as well as joint inflammation. She has a history of mild carpal tunnel syndrome, uses wrist splints. She is on amlodipine for Raynauds. She did have an echocardiogram done elsewhere in 2011 that was negative for pulmonary hypertension. It was thought we may need to consider repeating that at some point. Echocardiogram was normal January,. She has known esophageal dysmotility. She gets her primary care through [facility]. She is status post left knee replacement April,. She is up-to-date on the shingles vaccine. She had a DEXA scan at [facility] I believe in 2019, lowest T-score -1.2 at the lumbar spine. She has required prior 1st CMC cortisone injections in the past. Echocardiogram February 16, 2020 showed no evidence of pulmonary hypertension. However it did show a4.5 cm ascending aortic aneurysm. MR angio of the chest confirm this at 4.4 cm. She was given metoprolol for adequate blood pressure control. She was also placed on a statin. Cardiology follows her annually. She has reflux and mild dysphagia, were helped with an endoscopic dilation Her reflux seems controlled on omeprazole, Raynaud's controlled on amlodipine, joint inflammation controlled on methotrexate. She's had prior 1st CMC cortisone injections. She does continue Celebrex daily for pain. She gets mild Raynaud's but no digital ulceration. She denies visibly swollen joints. No shortness of breath or cough. No worsening in swallowing function. She gets some mild leg edema likely from the amlodipine. This is a six-month follow-up visit. Labs 05/09/22 show normal creatinine, CBC looks fine, MCV 104, normal AST. She has an echo scheduled 06/12 through cardiology. Interval history is reviewed. She is again bothered by bilateral 1st CMC joints. She uses Voltaren gel. Her Raynaud's has been fairly mild this winter. She denies any progressive skin tightening, sheis taking the Celebrex daily, denies any dysphagia. She has seen an orthopedist regarding 1st MTP arthritis and I explained this is quite similar to what she has at the base of the thumbs. SH: Nonsmoker PMH: Updated in EMR MEDS: Updated in EMR but notable for: Methotrexate 17.5 mg weekly, amlodipine 10 mg daily, omeprazole, Celebrex 200 mg, voltaren gel ADR/ALLERGIES: Updated in EMR OBJECTIVE: VS: Per flow sheet. General: NAD. Eyes: Externally clear. Chest: CTA. Musculoskeletal: All 4 limbs are examined. No visibly swollen joints over the hands . She did have tenderness at the bilateral 1st CMC joints. Cutaneous: slight sclerodactyly of the fingers, no cyanotic discoloration in the feet. Vascular: Difficult to feel the dorsalis pedis pulse on the right, she does have an intact posterior tibial pulse. 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 Esophageal dysmotility is stable, no worsening dyspnea. Continue CBC AST creatinine roughly every 3 months. 2: She will continue amlodipine for Raynaud's. This likely is causing some leg edema, for now she is comfortable continuing it. 3: She would like to have a left 1st CMC cortisone injection for symptomatic relief of base of thumb osteoarthritis. After verbal consent and sterile prep, the bilateral 1st CMC was injected with 10 mg of triamcinolone and 0.25 cc of lidocaine. She tolerated it well. 4: We discussed that the Celebrex could be more p.r.n. than daily, that may also help reduce leg edema. 5: Recheck in 6 months. MICS TECHNICIAN documented in this encounter Plan of Treatment Upcoming Encounters Date Type Department Care Team Description 05/27/2023 9:45 AM CERAMICS TECHNICIAN Appointment [facility] [address] [place], [place] [id number] Hans Gasca MD [address] [place] [id number] documented as of this encounter Visit Diagnoses Diagnosis CREST syndrome (HRC)- Primary Systemic sclerosis Inflammatory polyarthropathy (HRC) Unspecified inflammatory polyarthropathy Primary osteoarthritis of both first carpometacarpal joints Primary localized osteoarthrosis, hand residential current use of therapeutic drug documented in this encounter Care Teams Acoustical Engineer Relationship Specialty Start Date End Date Greg Bettencourt MD [address] [place] [address] PCP - General 03/21/13 documented as of this encounter
--- OUTSIDE RECORDS SUMMARY | 2023-05-07 15:54 | XMS_ITS | Encounter Summary ---
Author Name Unknown Organization [facility] Address [address] [place] [address] Care Team Providers Care Pump Technician Name Role Phone Greg Bettencourt MD Primary Care Provider [phone] Encounter Details Date Type Department Care Team Description 02/16/2023 12:30 PM CDT Lab Visit [facility] [address] [place] [address] Inflammatory polyarthropathy (HRC) Social History Tobacco Use Types Packs/Day Years Used Date Smoking Tobacco: Never Smokeless Tobacco: Never Alcohol Use Standard Drinks/Week Comments Yes 7 (1 standard drink = 0.6 oz pur e alcohol) Sex and Gender Information Value Date Recorded Sex Assigned at Not on file Gender Identity Not on file Sexual Orientation Not on file documented as of this encounter Plan of Treatment Upcoming Encounters Date Type Department Care Team Description 05/27/2023 9:45 AM CLERICAL ASSIGNER Appointment [facility] [address] [place] [address] Hans Gasca MD [address] [place] [address] [id number] documented as of this encounter Procedures Procedure Name Priority Date/Time Associated Diagnosis Comments CBC AND DIFFERENTIAL PANEL Routine 02/16/2023 12:33 PM CDT Inflammatory polyarthropathy (HRC) CREATININE / GFR Routine 02/16/2023 12:3 3 PM CDT Inflammatory polyarthropathy (HRC) COMPLETE BLOOD COUNT-W/DIFF Routine 02/16/2023 12:33 PM CDT Inflammatory polyarthropathy (HRC) AST Routine 02/16/2023 12:33 PM CDT Inflammatory polyarthropathy (HRC) documented in this encounter Results * (ABNORMAL) Complete Blood Count-W/Diff (02/16/2023 12:33 PM CDT) WBC 6.5 3.5 - 10.5 x10(9)/L 02/16/2023 12:36 PM [facility] RBC 3.57(L) 3.90 - 5.03 x10(12)/L 02/16/2023 12:36 PM [facility] Hemoglobin 12.3 12.0 - 15.5 g/dL 02/16/2023 12:36 PM [facility] HCT 36.7 34.9 - 44.5 % 02/16/2023 12:36 PM [facility] MCV 102.8(H) 80.0 - 100.0 fL 02/16/2023 12:36 PM [facility] MCH 34.5(H) 27.6 - 33.3 pg 02/16/2023 12:36 PM [facility] MCHC 33.5 31.5 - 35.2 g/dL 02/16/2023 12:36 PM [facility] RDW 13.2 11.9 - 15.5 % 02/16/2023 12:36 PM [facility] Platelets 236 150 - 450 x10(9)/L 02/16/2023 12:36 PM [facility] Automated NRBC 0 <=0 /100 WBC 02/16/2023 12:36 PM [facility] Neutrophil Absolute 3.8 1.7 - 7.0 10(9)/L 02/16/2023 12:36 PM [facility] Lymphocyte Absolute 1.8 1.0 - 4.8 10(9)/L 02/16/2023 12:36 PM [facility] Monocyte Absolute 0.8 0.2 - 0.9 10(9)/L 02/16/2023 12:36 PM CDT [facility] Eosinophil Absolute 0.2 0.0 - 0.5 10(9)/L 02/16/2023 12:36 PM CDT [facility] Basophil Absolute 0.1 0.0 - 0.3 10(9)/L 02/16/2023 12:36 PM CDT [facility] Immature Granulocyte % 0.3 0.0 - 0.5 % 02/16/2023 12:36 PM CDT [facility] Blood Venipuncture / Unknown 02/16/2023 12:33 PM CDT 02/16/2023 12:33 PM CDT Hans Gasca MD LAB_1 [facility] [address] [phone], [facility] [phone] * AST (02/16/2023 12:33 PM CDT) AST (SGOT) 27 10 - 40 U/L 02/16/2023 4:49 PM CDT [facility] Blood Venipuncture / Unknown 02/16/2023 12:33 PM CDT 02/16/2023 12:33 PM CDT Hans Gasca MD LAB_1 [facility] [address] [phone], [facility] [phone] * Creatinine / GFR (02/16/2023 12:33 PM CDT) Creatinine 0.70 0.55 - 1.02 mg/dL 02/16/2023 4:49 PM CDT [facility] GFR, Estimated >60 >60 mL/min/1.7 3m2 02/16/2023 4:49 PM CDT [facility] Blood Venipuncture / Unknown 02/16/2023 12:33 PM CDT 02/16/2023 12:33 PM CDT Hans Gasca MD LAB_1 [facility] [address] [place] [address], [facility] [phone] documented in this encounter Visit Diagnoses Diagnosis Inflammatory polyarthropathy (HRC) Unspecified inflammatory polyarthropathy documented in this encounter Care Teams Pump Technician Relationship Specialty Start Date End Date Greg Bettencourt MD [address] [place] [address] PCP - General 03/21/13 documented as of this encounter
--- OUTSIDE RECORDS SUMMARY | 2023-05-07 15:54 | XMS_ITS | Encounter Summary ---
Author Name Unknown Organization [facility] Address [address] [place] [address] Care Team Providers Care Solid Waste Analyst Name Role Phone Greg Bettencourt MD Primary Care Provider [phone] Encounter Details Date Type Department Care Team Description 08/18/2022 1:50 PM CDT Lab Visit [facility] [address] [place] [address] Inflammatory polyarthropathy (HRC) Social History Tobacco Use [...] Department Care Team Description 05/27/2023 9:45 AM FIELD TRAINING AGENT Appointment [facility] [address] [place] [address] Hans Gasca MD [address] [place] [address] [phone] documented as of this encounter Procedures Procedure Name Priority Date/Time Associated Diagnosis Comments CBC AND DIFFERENTIAL PANEL Routine 08/18/2022 1:48 PM CDT Inflammatory polyarthropathy (HRC) CREATININE / GFR Routine 08/18/2022 1:48 PM CDT Inflammatory polyarthropathy (HRC) COMPLETE BLOOD COUNT-W/DIFF Routine 08/18/2022 1:48 PM CDT Inflammatory polyarthropathy (HRC) AST Routine 08/18/2022 1:48 PM CDT Inflammatory polyarthropathy (HRC) documented in this encounter Results * (ABNORMAL) Complete Blood Count-W/Diff (08/18/2022 1:48 PM CDT) [facility] WBC 8.1 3.5 - 10.5 x10(9)/L 08/18/2022 1:56 PM [facility] RBC 3.65(L) 3.90 - 5.03 x10(12)/L 08/18/2022 1:56 PM [facility] Hemoglobin 12.7 12.0 - 15.5 g/dL 08/18/2022 1:56 PM [facility] HCT 37.7 34.9 - 44.5 % 08/18/2022 1:56 PM [facility] MCV 103.3(H) 80.0 - 100.0 fL 08/18/2022 1:56 PM [facility] MCH 34.8(H) 27.6 - 33.3 pg 08/18/2022 1:56 PM [facility] MCHC 33.7 31.5 - 35.2 g/dL 08/18/2022 1:56 PM [facility] RDW 12.6 11.9 - 15.5 % 08/18/2022 1:56 PM [facility] Platelets 265 150 - 450 x10(9)/L 08/18/2022 1:56 PM [facility] Automated NRBC 0 <=0 /100 WBC 08/18/2022 1:56 PM [facility] Neutrophil Absolute 5.1 1.7 - 7.0 10(9)/L 08/18/2022 1:56 PM [facility] Lymphocyte Absolute 1.7 1.0 - 4.8 10(9)/L 08/18/2022 1:56 PM [facility] Monocyte Absolute 1.1(H) 0.2 - 0.9 10(9)/L 08/18/2022 1:56 PM CDT [facility] Eosinophil Absolute 0.2 0.0 - 0.5 10(9)/L 08/18/2022 1:56 PM CDT [facility] Basophil Absolute 0.1 0.0 - 0.3 10(9)/L 08/18/2022 1:56 PM CDT [facility] Immature Granulocyte % 0.4 0.0 - 0.5 % 08/18/2022 1:56 PM CDT [facility] Blood Venipuncture / Unknown 08/18/2022 1:48 PM CDT 08/18/2022 1:48 PM CDT Hans Gasca MD LAB_1 Performing Organization Address City/[facility]/ZIP Co de Phone Number [facility] [address] [phone], [facility] [phone] * AST (08/18/2022 1:48 PM CDT) AST (SGOT) 33 10 - 40 U/L 08/18/2022 7:01 PM CDT [facility] Blood Venipuncture / Unknown 08/18/2022 1:48 PM CDT 08/18/2022 1:48 PM CDT Hans Gacsa MD LAB_1 Performing Organization Address [facility]/ZIP Co de Phone Number [facility] [address] [phone], [facility] [phone] * Creatinine / GFR (08/18/2022 1:48 PM CDT) Creatinine 0.70 0.55 - 1.02 mg/dL 08/18/2022 7:01 PM CDT [facility] GFR, Estimated >60 >60 mL/min/1.7 3m2 08/18/2022 7:01 PM CDT [facility] Blood Venipuncture / Unknown 08/18/2022 1:48 PM CDT 08/18/2022 1:48 PM CDT Hans Gasca MD LAB_1 [facility] [address] [place] [address], [facility] [phone] documented in this encounter Visit Diagnoses Diagnosis Inflammatory polyarthropathy (HRC) Unspecified inflammatory polyarthropathy documented in this encounter Care Teams Solid Waste Analyst Relationship Specialty Start Date End Date Greg Bettencourt MD [address] [place] [address] PCP - General 03/21/13 documented as of this encounter
--- OUTSIDE RECORDS SUMMARY | 2023-05-07 15:54 | XMS_ITS | Encounter Summary ---
Author Name Unknown Organization [facility] Address [address] [place] [address] Care Team Providers Care Laster Hand Name Role Phone Greg Bettencourt MD Primary Care Provider [phone] Reason for Referral * (Routine) - New Request Specialty Diagnoses / Procedures Referred By Contac t Referred To Contact Diagnoses Primary osteoarthritis of both first carpometacarpal joints Procedures Triamcinolone Acet Inj Nos: (per 10 mg) Hans Gasca MD [address] [place] [address] Referral ID Status Reason Start Date Expiration Date V isits Requested Visits Authorized [id number] New Request 11/12/2022 2024 1 1 * Procedure/Equipment (Routine) - Incomplete Specialty Diagnoses / Procedures Referred By Contac t Referred To Contact Diagnoses Pain of left midfoot Procedures XR Foot 3+ Views/Ankle 2 Views Series Lt Hans Gasca MD [address] [place] [address] Referral ID Status Reason Start Date Expiration Date V isits Requested Visits Authorized [id number] Incomplete 11/12/2022 2024 1 1 * Procedure/Equipment (Routine) - Incomplete Specialty Diagnoses / Procedures Referred By Contac t Referred To Contact Diagnoses Primary osteoarthritis of both first carpometacarpal joints Procedures XR Finger Rt Thumb 2+ Views Hans Gasca MD [address] [place] [address] Referral ID Status Reason Start Date Expiration Date V isits Requested Visits Authorized [id number] Incomplete 11/12/2022 2024 1 1 * Procedure/Equipment (Routine) - Incomplete Specialty Diagnoses / Procedures Referred By Contac t Referred To Contact Diagnoses Primary osteoarthritis of both first carpometacarpal joints Procedures XR Finger Lt Thumb 2+ Views Hans Gasca MD [address] [place] [address] Referral ID Status Reason Start Date Expiration Date V isits Requested Visits Authorized [id number] Incomplete 11/12/2022 2024 1 1 Reason for Visit * Reason Comments Follow-up Encounter Details Date Type Department Care Team Description 11/12/2022 1:15 PM CDT Office Visit [facility] [address] [place], [place] [phone] [place] [address] [place] [address] [id number] Pain of left midfoot (Primary Dx); CREST syndrome (HRC); Inflammatory polyarthropathy (HRC); Primary osteoarthritis of both first carpometacarpal joints; 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 Suspect you have some osteoarthritis in the midfoot causing the foot pain. Suggest Naya Encore Breeze 3 slippers. No change in meds otherwise. Recheck in 3 months. If foot not improving with shoes or manageable, I may be able to order a foot injection for you under x-ray. documented in this encounter Progress Notes * Hans Gasca MD - 11/12/2022 1:15 PM CDT RHEUMATOLOGY RECHECK This note was generated with voice activated car repair supervisor software and may contain typographical and word [...] consider repeating that at some point. Echocardiogram in May, showed no pulmonary hypertension. She has known esophageal dysmotility. She gets her primary care through [facility]. She is status post left knee replacement April,. She is up-to-date on the shingles vaccine. She had a DEXA scan at [facility] I believe in 2019, lowest T-score -1.2 at the lumbar spine. She has required prior 1st CMC cortisone injections in the past. Cardiology follows her for a stable ascending aortic aneurysm with echocardiograms. She has reflux and mild dysphagia, were [...] mild leg edema likely from the amlodipine. She had an echocardiogram in May, which we should review. At her visit in April,, she was given bilateral 1st CMC cortisone injections. This is a six-month follow-up visit. Lab data 11/11/22 shows normal Cr, unremarkable CBC, normal AST. Interval history is reviewed. She is again bothered by bilateral 1st CMC pain. She also notes some new pain at the left midfoot medially in the region of the talonavicular joint. She notices if she wear shoes in the house this pain is less but it can also bother at night. She denies worsening Raynaud's, reflux is controlled with omeprazole. SH: Nonsmoker PMH: Updated in EMR MEDS: [...] tenderness at the bilateral 1st CMC joints. 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 Continue methotrexate, amlodipine, Celebrex, omeprazole. Continue monitoring labs CBC AST creatinine roughly every 3 months. 2: Recommend x-rays bilateral thumbs and left foot today in Radiology. X-rays of the thumbs have not been done in 7 years. We discussed Hand Orthopedic surgery, for now she wants to hold off but would be an option probably in the future. She would like to get bilateral 1st CMC cortisone injections for symptomatic relief of osteoarthritis pain. After verbal consent and sterile prep, each 1st CMC kanika int was injected with 10 mg of triamcinolone and 0.25 cc of lidocaine. She tolerated well. 3: I will also be in touch with the left foot x-ray, we will be looking to see if there is some talonavicular DJD which might be amenable to a fluoroscopic injection. I will not order this, for now Irecommended some Naya kooore Breeze slippers to see if those will provide support. We can discuss at a future visit and we have elected to see her in 3 months instead of 6 months this time. documented in this encounter Plan of Treatment Upcoming Encounters Date Type Department Care Team Description 05/27/2023 9:45 AM TACK CUTTER Appointment [facility] [address] [place] [address] Hans Gasca MD [address] [place] [phone] documented as of this encounter Results * XR Finger Rt Thumb 2+ Views (11/12/2022 1:58 PM CDT) Anatomical Region Laterality Modality Upper Extremity, Hand Digital Ra diography 11/12/2022 1:38 PM CDT Impressions 11/12/2022 2:08 PM CDT COMPARISON: ??May 02, 2015 FINDINGS: Left: Joint space narrowing and some sclerosis, osteophyte formation carpometacarpal joint space of the thumb. No periarticular osteopenia, erosion or soft tissue calcification. No acute fracture or dislocation. Soft tissues normal. Right: Joint space narrowing and subchondral cyst formation along with osteophytes are present at the carpometacarpal joint space of the thumb. No acute fracture or dislocation. No periarticular osteopenia, erosion or soft tissue calcification is present. IMPRESSION: Osteoarthritic change in carpometacarpal joint space of the thumb, left worse than right. Narrative Procedure Note Fritz Rodríguez MD - 11/12/2022 IMPRESSION COMPARISON: May 02, 2015 FINDINGS: Left: Joint space narrowing and some sclerosis, osteophyte formationcarpometacarpal joint space of the thumb. No periarticular osteopenia,erosion or soft tissue calcification. No acute fracture or dislocation.Soft tissues normal. Right: Joint space narrowing and subchondral cyst formation along withosteophytes are present at the carpometacarpal joint space of the thumb.No acute fracture or dislocation. No periarticular osteopenia, erosion orsoft tissue calcification is present. IMPRESSION: Osteoarthritic change in carpometacarpal joint space of thethumb, left worse than right. Hans Gasca MD RAD GD * XR Finger Lt Thumb 2+ Views (11/12/2022 1:58 PM CDT) Anatomical Region Laterality Modality Upper Extremity, Hand Digital Ra diography 11/12/2022 1:38 PM CDT Impressions 11/12/2022 2:08 PM CDT COMPARISON: ??May 02, 2015 FINDINGS: Left: Joint space narrowing and some sclerosis, osteophyte formation carpometacarpal joint space of the thumb. No periarticular osteopenia, erosion or soft tissue calcification. No acute fracture or dislocation. Soft tissues normal. Right: Joint space narrowing and subchondral cyst formation along with osteophytes are present at the carpometacarpal joint space of the thumb. No acute fracture or dislocation. No periarticular osteopenia, erosion or soft tissue calcification is present. IMPRESSION: Osteoarthritic change in carpometacarpal joint space of the thumb, left worse than right. Narrative Procedure Note Fritz Rodríguez MD - 11/12/2022 IMPRESSION COMPARISON: May 02, 2015 FINDINGS: Left: Joint space narrowing and some sclerosis, osteophyte formationcarpometacarpal joint space of the thumb. No periarticular osteopenia,erosion or soft tissue calcification. No acute fracture or dislocation.Soft tissues normal. Right: Joint space narrowing and subchondral cyst formation along withosteophytes are present at the carpometacarpal joint space of the thumb.No acute fracture or dislocation. No periarticular osteopenia, erosion orsoft tissue calcification is present. IMPRESSION: Osteoarthritic change in carpometacarpal joint space of thethumb, left worse than right. Hans PERSAUD GD * XR Foot 3+ Views/Ankle 2 Views Series Lt (11/12/2022 1:57 PM CDT) Anatomical Region Laterality Modality Lower Extremity, Foot, Ankle Dig ital Radiography 11/12/2022 1:38 PM CDT Impressions 11/12/2022 2:06 PM CDT COMPARISON: ??None. FINDINGS: ??6 views. No acute findings. Minimal osteoarthritis of the first MTP joint. Mid foot and ankle appear unremarkable with no significant degenerative change. Narrative Procedure Note Rakan Welch MD - 11/12/2022 IMPRESSION COMPARISON: None. FINDINGS: 6 views. No acute findings. Minimal osteoarthritis of the firstMTP joint. Mid foot and ankle appear unremarkable with no significantdegenerative change. 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
--- OUTSIDE RECORDS SUMMARY | 2023-05-07 15:54 | XMS_ITS | Clinical Summary ---
Author Name Unknown Organization [facility] Address [address] [place] [address] Care Team Providers Care Credit Consultant Name Role Phone Greg Bettencourt MD Primary Care Provider [phone] Source Comments You are receiving this document as you are listed as the primary care provider,follow-up provider, or the patient has been referred to you for consultation.This is in compliance with the Medicare and[facility] EHR Incentive Program,which states Providers who transition their patient to another setting of careor provider of care or refers their patient to another provider of care shouldprovide summary care record for each transition of care or referral. [facility] Allergies No known active allergies Medications Medication Sig Dispensed Refills Start Date End Date Status sertraline (AKA ZOLOFT) 50 MG tablet Take 1 Tablet (50 mg) by mouth daily. 0 04/23/2011 Active Multiple Vitamins-Minerals (MULTIVITAMIN OR) Take 1 tablet by mouth daily (every 24 hours). 0 04/23/2011 Active cephalexin (KEFLEX) 500 MG capsule TAKE 4 CAPSULES BY MOUTH FOR ONE DOSE BEFORE DENTAL APPOINTMENT 4 09/14/2018 Active diclofenac (VOLTAREN) 1 % gel Apply 2 g to skin 4 times daily as needed for Other (hand, knee, other joint pain). 100 g 3 01/21/2021 Active rosuvastatin (CRESTOR) 20 MG tabletIndications: Thoracic aortic aneurysm without rupture (HRC),Routine health maintenance,Hypert ension, unspecified type (HRC),WATERS (dyspnea on exertion) TAKE 1 TABLET BY MOUTH EVERY DAY 90 Tablet 3 07/12/2021 Active metoprolol succinate (TOPROL XL) 50 MG 24 hour release tabletIndications: Thoracic aortic aneurysm without rupture (HRC),Routine health maintenance,Hypert ension, unspecified type (HRC),WATERS (dyspnea on exertion) TAKE 1 TABLET BY MOUTH EVERY DAY 90 Tablet 3 07/12/2021 Active losartan (COZAAR) 25 MG tabletIndications: Thoracic aortic aneurysm without rupture (HRC),Routine health maintenance,Hypert ension, unspecified type (HRC),WATERS (dyspnea on exertion) TAKE 1 TABLET BY MOUTH EVERY DAY 90 Tablet 3 07/12/2021 Active Multiple Vitamin (ONE-A-DAY ESSENTIAL) Take 1 Tablet by mouth daily. 0 Active omeprazole (PRILOSEC) 20 MG capsule TAKE 1 CAPSULE BY MOUTH DAILY, 20 TO 30 MINUTES BEFORE A MEAL. 90 Capsule 3 02/21/2022 Active celecoxib (CELEBREX) 200 MG capsule Take 1 Capsule (200 mg) by mouth daily. OK with methotrexate 90 Capsule 3 11/12/2022 Active methotrexate 2.5 MG tablet Take 7 Tablets (17.5 mg) by mouth once every week. 84 Tablet 3 11/12/2022 Active amLODIPine (NORVASC) 10 MG tablet Take 1 Tablet (10 mg) by mouth daily. 90 Tablet 3 11/12/2022 Active folic acid 1 MG tablet Take 1 Tablet (1 mg) by mouth daily. 90 Tablet 3 02/18/2023 Active Active Problems Problem Noted Date Diagnosed Date Thoracic aortic aneurysm without rupture 022 Chronic fatigue 01/18/2020 half-way current use of therapeutic drug 2018 Primary osteoarthritis of both first carpometaca rpal joints 02/03/2018 Primary osteoarthritis of fi rst carpometacarpal joint of right hand 01/28/2017 Primary osteoarthritis of both hands 01/28/2016 Rotator cuff syndrome 10/02/2014 Bilateral carpal tunnel syndrome 10/02/2014 Other synovitis and tenosynovitis, multiple site s 03/27/2014 Overview: Other tenosynovitis of hand and wrist Rheumatoid arthritis 12/15/2011 Overview: Rheumatoid arthritis - seronegative GERD (gastroesophageal reflux disease) 2 CREST syndrome 10/01/2011 Inflammatory polyarthropathy 06/25/2011 Overview: Unspecified inflammatory polyarthropathy (HRC) 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 (NSAID) 06/25/2011 Overview: Encounter for long-term (current) use of other medications Raynaud's syndrome 04/23/2011 Trigger finger, acquired 04/23/2011 Overview: Trigger finger (acquired) Pain in joint, hand 04/23/2011 Resolved Problems Problem Noted Date Diagnosed Date Resolved Date Nonspecific immunological findings 04/23/2011 01/18/2020 Overview: Positive NADINE - centromere Encounters Date Type Department Care Team Description 02/18/2023 11:45 AM CDT Office Visit [facility] [address] [place] [address] Hans Gasca MD CREST syndrome (HRC) (Primary Dx); Inflammatory polyarthropathy (HRC); Primary osteoarthritis of both first carpometacarpal joints; half-way current use of therapeutic drug; Pain of left midfoot 02/16/2023 12:30 PM CDT Lab Visit [facility] [address] [place] [address] Inflammatory polyarthropathy (HRC) from Last 3 Months Immunizations Name Administration Dates Next Due Flu Vac (3+ yrs) 01/26/2018,01/16/2014, 3 Flu Vac Preserv Free (3+yrs) 2012, 01/28/2012,01/29/2011, 010,01/17/2009 Influenza IIV3 (Trivalent) F luzone Highdose, 65+ Yrs (25760) 01/02/2019 Influenza IIV4 (Quadrivalent ) 0.5mL (83506) 01/21/2021,01/02/2019,01/26/2018, 018,01/28/2017,01/07/2016,01/03/2015,,01/13/2013,01/28/2012,01/29/2011 ,02/12/2010,02/01/2009,01/17/2009,2004 Influenza IIV4 (Quadrivalent ) Fluad, 65+ Yrs 01/21/2021,01/12/2020 Influenza IIV4 (Quadrivalent ) Fluzone, 65+ Yrs 01/14/2022 PPSV23 (Pneumovax) 04/02/2021 Pfizer Monovalent 12+ Purple Top 02/14/2021,06/20,06/26/2020 Td (7+ yrs) 04/02/2021 Tdap 09/05/2010 Zoster (Zostavax) 07/13/2012 Zoster RZV (Shingrix) 12/04/2017,09/02/2017,07/19 Family History Medical History Relation Name Comments Stroke Father Winston 1st was in his early 60's Cancer Sister 1 Margy Uterine cancer Diabetes Sister 1 Margy Cancer Sister 2 Amanda Pancreatic canc er Relation Name Status Comments Father Robinsoner Sister 1 Margy Sister 2 Amanda Social History Tobacco Use Types Packs/Day Years Used Date Smoking Tobacco: Never Smokeless Tobacco: Never Tobacco Cessation:Counseling Given: Not Answered Alcohol Use Standard Drinks/Week Comments Yes 7 (1 standard drink = 0.6 oz pur e alcohol) Sex and Gender Information Value Date Recorded Sex Assigned at Not on file Gender Identity Not on file Sexual Orientation Not on file Last Filed Vital Signs Vital Sign Reading Time Taken Comments Blood Pressure 126/73 11/12/2022 1:01 PM CDT Pulse 75 11/12/2022 1:01 PM CDT Temperature 36.2 ??C (97.1 ??F) 05/12/2022 1:07 PM CS T Respiratory Rate 16 04/08/2021 10:18 AM SQUIRREL MAN Oxygen Saturation 94% 04/08/2021 10:31 AM SQUIRREL MAN Inhaled Oxygen Concentration - - Weight 73.5 kg (162 lb) 11/12/2022 1:01 PM CDT Height 162.6 cm (5' 4) 06/16/2022 2:57 PM SQUIRREL MAN Body Mass Index 27.81 06/16/2022 2:57 PM SQUIRREL MAN Plan of Treatment Upcoming Encounters Date Type Department Care Team Description 05/27/2023 9:45 AM SQUIRREL MAN Appointment [facility] [address] [place] [address] Hans Gasca MD [address] [place] [address] Health Maintenance Due Date Last Done Comments Colon Cancer Screening Plan Due 1955 Hep C Screening (Preventive Services) 1955 Medicare Annual Wellness Visit 1955 Mammogram 1955 Pneumococcal 65+ Yrs (2 - PCV) 04/02/2022 04/02/2021 COVID-19 Vaccine (4 - season) 2022 02/14/2021, 07/17/2020, 06/26/2020 Influenza (#1) 2022 01/14/2022, 12/20, 01/21/2021, Additional history exists Cholesterol 04/05/2026 04/05/2021 DTaP/Tdap/Td (3 - Tdap) 04/02/2031 04/02/2021, 09/05 Dexa Completed 03/16/2012 Zoster/Shingles Completed 12/04/2017, 08/18, 08/04/2017, Additional history exists HepA Aged Out No longer eligi ble based on patient's age to complete this topic HepB Aged Out No longer eligi ble based on patient's age to complete this topic Hib Aged Out No longer eligi ble based on patient's age to complete this topic IPV (Polio) Aged Out No longer eligi ble based on patient's age to complete this topic MCV4 Aged Out No longer eligi ble based on patient's age to complete this topic Procedures Procedure Name Priority Date/Time Associated Diagnosis Comments COMPLETE BLOOD COUNT-W/DIFF Routine 02/16/2023 12:33 PM CDT Inflammatory polyarthropathy (HRC) CBC AND DIFFERENTIAL PANEL Routine 02/16/2023 12:33 PM CDT Inflammatory polyarthropathy (HRC) AST Routine 02/16/2023 12:33 PM CDT Inflammatory polyarthropathy (HRC) CREATININE / GFR Routine 02/16/2023 12:3 3 PM CDT Inflammatory polyarthropathy (HRC) from Last 3 Months Results * Creatinine / GFR (02/16/2023 12:33 PM CDT) Pathologist [facility] Creatinine 0.70 0.55 - 1.02 mg/dL 02/16/2023 4:[address] [facility] GFR, Estimated >60 >60 mL/min/1.7 3m2 02/16/2023 4:[address] [facility] Blood Venipuncture / Unknown 02/16/2023 12:33 PM CDT 02/16/2023 12:33 PM CDT Hans Gasca MD LAB_[address] [facility] [address] [place] [address], [facility] [phone] * (ABNORMAL) Complete Blood Count-W/Diff (02/16/2023 12:33 PM CDT) Pathologist [facility] WBC 6.5 3.5 - 10.5 x10(9)/L 02/16/2023 12:[address] [facility] RBC 3.57(L) 3.90 - 5.03 x10(12)/L 02/16/2023 12:36 PM [facility] Hemoglobin 12.3 12.0 - 15.5 g/dL 02/16/2023 12:36 PM [facility] HCT 36.7 34.9 - 44.5 % 02/16/2023 12:36 PM [facility] MCV 102.8(H) 80.0 - 100.0 fL 02/16/2023 12:36 PM [facility] MCH 34.5(H) 27.6 - 33.3 pg 02/16/2023 12:36 PM [facility] MCHC 33.5 31.5 - 35.2 g/dL 02/16/2023 12:36 PM [facility] RDW 13.2 11.9 - 15.5 % 02/16/2023 12:36 PM [facility] Platelets 236 150 - 450 x10(9)/L 02/16/2023 12:36 PM [facility] Automated NRBC 0 <=0 /100 WBC 02/16/2023 12:[address] [facility] Neutrophil Absolute 3.8 1.7 - 7.0 10(9)/L 02/16/2023 12:[address] [facility] Lymphocyte Absolute 1.8 1.0 - 4.8 10(9)/L 02/16/2023 12:[address] [facility] Monocyte Absolute 0.8 0.2 - 0.9 10(9)/L 02/16/2023 12:[address] [facility] Eosinophil Absolute 0.2 0.0 - 0.5 10(9)/L 02/16/2023 12:36 PM [facility] Basophil Absolute 0.1 0.0 - 0.3 10(9)/L 02/16/2023 12:36 PM [facility] Immature Granulocyte % 0.3 0.0 - 0.5 % 02/16/2023 12:36 PM [facility] Blood Venipuncture / Unknown 02/16/2023 12:33 PM CDT 02/16/2023 12:33 PM CDT Hans Gasca MD LAB_1 Performing Organization Address [facility]/ZIP Co de Phone Number [facility] [address] [place] [address], [facility] [phone] * AST (02/16/2023 12:33 PM CDT) Pathologist [facility] AST (SGOT) 27 10 - 40 U/L 02/16/2023 4:[address] [facility] Blood Venipuncture / Unknown 02/16/2023 12:33 PM CDT 02/16/2023 12:33 PM CDT Hans Gasca MD LAB_1 Performing Organization Address [facility]/ZIP Co de Phone Number [facility] [address] [place] [address], [place] [phone] from Last 3 Months Care Teams Credit Consultant Relationship Specialty Start Date End Date Greg Bettencourt MD [address] [place] [address] PCP - General 03/21/13
--- OUTSIDE RECORDS SUMMARY | 2023-05-07 15:54 | XMS_ITS | Encounter Summary ---
Author Name Unknown Organization [facility] Address [address] [place] [address] Care Team Providers Care Pediatric Physical Therapist Name Role Phone Greg Bettencourt MD Primary Care Provider [phone] Reason for Visit * Procedure/Equipment (Routine) - Incomplete Specialty Diagnoses / Procedures Referred By Fide t Referred To Contact Diagnoses Primary osteoarthritis of both first carpometacarpal joints Procedures XR Finger Rt Thumb 2+ Views Hans Gasca MD [address] [place] [address] Referral ID Status Reason Start Date Expiration Date V isits Requested Visits Authorized [id number] Incomplete 11/12/2022 2024 1 1 Encounter Details Date Type Department Care Team Description 11/12/2022 1:45 PM CDT Ancillary Procedure [facility] [address] [place], [place] [id number] Hans Gasca MD [address] [place], [place] [address] Primary osteoarthritis of both first carpometacarpal joints Social History Tobacco Use Types Packs/Day Years [...] Department Care Team Description 05/27/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 Hans PERSAUD GD * XR Finger Lt Thumb 2+ [...] of thethumb, left worse than right. Hans VAZQUEZ documented in this encounter Visit Diagnoses Diagnosis Primary osteoarthritis of both first carpometacarpal joints Primary localized osteoarthrosis, hand Primary osteoarthritis of both first carpometacarpal joints Primary localized osteoarthrosis, hand documented in this encounter Care Teams Pediatric Physical Therapist Relationship Specialty Start Date End Date Greg Bettencourt MD [address] [place] [address] PCP - General 03/21/13 documented as of this encounter
--- OUTSIDE RECORDS SUMMARY | 2023-05-07 15:54 | XMS_ITS | Encounter Summary ---
Author Name Unknown Organization [facility] Address [address] [place] [address] Care Team Providers Care Grooming Salon Manager Name Role Phone Greg Bettencourt MD Primary Care Provider [phone] [phone] Reason for Visit * Reason Comments RESULTS, TEST Encounter Details Date Type Department Care Team Description 06/10/2022 [facility] [address] [place], [place] [id number] Winston Brooks MD [address] [place] [address] RESULTS, TEST Social History Tobacco Use Types Packs/Day Years Used Date Smoking Tobacco: Never Smokeless Tobacco: Never Alcohol Use Standard Drinks/Week Comments Yes 7 (1 standard drink = 0.6 oz pur e alcohol) Sex and Gender Information Value Date Recorded Sex Assigned at Not on file Gender Identity Not on file Sexual Orientation Not on file documented as of this encounter Nursing Notes * Steph Contreras, RN - 06/10/2022 8:55 AM CST Spoke with Thong informing her of the results to her echocardiogram. Reminded her of her upcoming appt with Dr. Brooks. Verbalizes understanding. ----- Message from Winston Brooks MD sent at 06/09/2022 7:28 PM SEWER DIGGER ----- Unchanged, will discuss at upcoming appt ----- Message ----- From: Interface, In [facility] Rad Results Sent: 06/09/2022 11:06 AM SEWER DIGGER To: Winston Brooks MD R DIGGER documented in this encounter Plan of Treatment Upcoming Encounters Date Type Department Care Team Description 05/27/2023 9:45 AM SEWER DIGGER Appointment [facility] [address] [place], [place] [id number] Hans Gasca MD [facility] [place] [address] documented as of this encounter Visit Diagnoses Not on filedocumented in this encounter Care Teams Grooming Salon Manager Relationship Specialty Start Date End Date Greg Bettencourt MD [address] [facility] [address] PCP - General 03/21/13 documented as of this encounter
--- OUTSIDE RECORDS SUMMARY | 2023-05-07 15:54 | XMS_ITS | Encounter Summary ---
Author Name Unknown Organization [facility] Address [address] [place] [address] Care Team Providers Care Automobile Radiator Mechanic Name Role Phone Greg Bettencourt MD Primary Care Provider [phone] Reason for Visit * Reason Comments Refill Encounter Details Date Type Department Care Team Description 12/03/2015 Refill [facility] [address] [place], [place] [address] Hans Gsaca MD [address] [place] [address] Refill Social History Tobacco Use Types Packs/Day Years Used Date Smoking Tobacco: Never Assessed Sex and Gender Information Value Date Recorded Sex Assigned at Not on file Gender Identity Not on file Sexual Orientation Not on file documented as of this encounter Nursing Notes * Geraldine Berry RN - 12/04/2015 8:40 AM CDT Last visit 08/01/15 Future visit 01/28/16 Last filled: 10/12/14 #90 R-3 Renewed medication per medication refill protocol. Requested Prescriptions Pending Prescriptions Disp Refills ??? folic acid 1 mg tablet [Pharmacy Med Name: FOLIC ACID 1 MG TABLET] 90 tablet 3 Sig: Take 1 tablet by mouth daily (every 24 hours). documented in this encounter Plan of Treatment Upcoming Encounters Date Type Department Care Team Description 05/27/2023 9:45 AM BEVERAGE INSPECTION MACHINE TENDER Appointment [facility] [address] [place] [address] Hans Gasca MD [address] [place] [address] documented as of this encounter Visit Diagnoses Not on filedocumented in this encounter Care Teams Automobile Radiator Mechanic Relationship Specialty Start Date End Date Greg Bettencourt MD [address] [place] [address] PCP - General 03/21/13 documented as of this encounter
--- OUTSIDE RECORDS SUMMARY | 2023-05-07 15:54 | XMS_ITS | Encounter Summary ---
Author Name Unknown Organization [facility] Address [address] [place] [address] Care Team Providers Care Front End Application Developer Name Role Phone Greg Bettencourt MD Primary Care Provider [phone] Reason for Visit * Procedure/Equipment (Routine) - Incomplete Specialty Diagnoses / Procedures Referred By Contac t Referred To Contact Diagnoses Pain of left midfoot Procedures XR Foot 3+ Views/Ankle 2 Views Series Lt Hans Gasca MD [address] [place] [address] Referral ID Status Reason Start Date Expiration Date V isits Requested Visits Authorized [id number] Incomplete 11/12/2022 2024 1 1 Encounter Details Date Type Department Care Team Description 11/12/2022 1:50 PM CDT Ancillary Procedure [facility] [address] [place] [address] Hans Gasca MD [address] [place] [address] Pain of left midfoot Social History Tobacco Use Types Packs/Day Years [...] Department Care Team Description 05/27/2023 9:45 AM PARTS IDENTIFIER Appointment [facility] [address] [place] [address] Hans Gasca MD [address] [place] [address] documented as of this encounter Procedures Procedure Name Priority Date/Time Associated Diagnosis Comments XR FOOT 3+ VIEWS/ANKLE 2 VIEWS SERIES LT Routine 11/12/2022 1:57 PM CDT Pain of left midfoot documented in this encounter Results * XR Foot 3+ Views/Ankle 2 Views [...] appear unremarkable with no significantdegenerative change. Hans Gasca MD RAD [facility] documented in this encounter Visit Diagnoses Diagnosis Pain of left midfoot documented in this encounter Care Teams Front End Application Developer Relationship Specialty Start Date End Date Greg Bettencourt MD [address] [place] [address] PCP - General 03/21/13 documented as of this encounter
--- OUTSIDE RECORDS SUMMARY | 2023-05-07 15:54 | XMS_ITS | Encounter Summary ---
Author Name Unknown Organization [facility] Address [address] [place] [address] Care Team Providers Care Furniture Painter Name Role Phone Greg Bettencourt MD Primary Care Provider [phone] Encounter Details Date Type Department Care Team Description 11/11/2022 10:00 AM CDT Lab Visit [facility] [address] [place] [address] Inflammatory polyarthropathy (HRC) Social History Tobacco Use [...] Department Care Team Description 05/27/2023 9:45 AM BUILDING MAINTENANCE SUPERVISOR Appointment [facility] [address] [place] [address] Hans Gasca MD [address] [place] [id number] documented as of this encounter Procedures Procedure Name Priority Date/Time Associated Diagnosis Comments CBC AND DIFFERENTIAL PANEL Routine 11/11/2022 9:54 AM CDT Inflammatory polyarthropathy (HRC) CREATININE / GFR Routine 11/11/2022 9:54 AM CDT Inflammatory polyarthropathy (HRC) COMPLETE BLOOD COUNT-W/DIFF Routine 11/11/2022 9:54 AM CDT Inflammatory polyarthropathy (HRC) AST Routine 11/11/2022 9:54 AM CDT Inflammatory polyarthropathy (HRC) documented in this encounter Results * (ABNORMAL) Complete Blood Count-W/Diff (11/11/2022 9:54 AM CDT) Pathologist [facility] WBC 8.5 3.5 - 10.5 x10(9)/L 11/11/2022 10:07 AM [facility] RBC 3.79(L) 3.90 - 5.03 x10(12)/L 11/11/2022 10:07 AM [facility] Hemoglobin 12.9 12.0 - 15.5 g/dL 11/11/2022 10:07 AM [facility] HCT 38.9 34.9 - 44.5 % 11/11/2022 10:07 AM [facility] MCV 102.6(H) 80.0 - 100.0 fL 11/11/2022 10:07 AM [facility] MCH 34.0(H) 27.6 - 33.3 pg 11/11/2022 10:07 AM [facility] MCHC 33.2 31.5 - 35.2 g/dL 11/11/2022 10:07 AM [facility] RDW 13.9 11.9 - 15.5 % 11/11/2022 10:07 AM [facility] Platelets 243 150 - 450 x10(9)/L 11/11/2022 10:07 AM [facility] Automated NRBC 0 <=0 /100 WBC 11/11/2022 10:07 AM [facility] Neutrophil Absolute 5.5 1.7 - 7.0 10(9)/L 11/11/2022 10:07 AM [facility] Lymphocyte Absolute 1.9 1.0 - 4.8 10(9)/L 11/11/2022 10:07 AM [facility] Monocyte Absolute 0.8 0.2 - 0.9 10(9)/L 11/11/2022 10:07 AM [facility] Eosinophil Absolute 0.2 0.0 - 0.5 10(9)/L 11/11/2022 10:07 AM [facility] Basophil Absolute 0.1 0.0 - 0.3 10(9)/L 11/11/2022 10:07 AM [facility] Immature Granulocyte % 0.6(H) 0.0 - 0.5 % 11/11/2022 10:07 AM [facility] Blood Venipuncture / Unknown 11/11/2022 9:54 AM CDT 11/11/2022 9:54 AM CDT Hans Gasca MD LAB_1 Performing Organization Address City/[facility]/ZIP Co de Phone Number [facility] [address] [place] [address], [facility] [phone] * AST (11/11/2022 9:54 AM CDT) AST (SGOT) 30 10 - 40 U/L 11/11/2022 11:05 AM [facility] Blood Venipuncture / Unknown 11/11/2022 9:54 AM CDT 11/11/2022 9:54 AM CDT Hans Gasca MD LAB_1 Performing Organization Address City/[facility]/ZIP Co de Phone Number [facility] [address] [place] [address], [facility] [phone] * Creatinine / GFR (11/11/2022 9:54 AM CDT) Creatinine 0.70 0.55 - 1.02 mg/dL 11/11/2022 11:05 AM [facility] GFR, Estimated >60 >60 mL/min/1.7 3m2 11/11/2022 11:05 AM [facility] Blood Venipuncture / Unknown 11/11/2022 9:54 AM CDT 11/11/2022 9:54 AM CDT Hans Gasca MD LAB_1 [facility] [address] [place] [address], [facility] [phone] documented in this encounter Visit Diagnoses Diagnosis Inflammatory polyarthropathy (HRC) Unspecified inflammatory polyarthropathy documented in this encounter Care Teams Furniture Painter Relationship Specialty Start Date End Date Greg Bettencourt MD [address] [place] [address] PCP - General 03/21/13 documented as of this encounter
--- OUTSIDE RECORDS SUMMARY | 2023-05-07 15:54 | XMS_ITS | Encounter Summary ---
Author Name Unknown Organization [facility] Address [address] [place] [address] Care Team Providers Care Road Supervisor Name Role Phone Greg Bettencourt MD Primary Care Provider [phone] Reason for Referral * (Routine) - New Request Specialty Diagnoses / Procedures Referred By Fide t Referred To Contact Diagnoses Primary osteoarthritis of both first carpometacarpal joints Procedures Triamcinolone Acet Inj Nos: (per 10 mg) Hans Gasca MD [address] [place] [address] Referral ID Status Reason Start Date Expiration Date V isits Requested Visits Authorized [id number] New Request 02/18/2023 05/19/2024 1 1 Reason for Visit * Reason Comments Follow-up Encounter Details Date Type Department Care Team Description 02/18/2023 11:45 AM CDT Office Visit [facility] [address] [place], [place] [address] Hans Gasca MD [address] [place] [address] CREST syndrome (HRC) (Primary Dx); Inflammatory polyarthropathy (HRC); Primary osteoarthritis of both first carpometacarpal joints; 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 She gets her primary care through [facility]. She is status post left knee replacement April,. She is up-to-date on the shingles vaccine. She had a DEXA scan at [facility] I believe in 2019, [...] mild leg edema likely from the amlodipine. Echocardiogram May, showed no signs of pulmonary hypertension. At her visit in October, we injected bilateral 1st CMC joints. She was having some left midfoot foot pain, x-ray was unremarkable. I suggested Naya encore breeze shoes for in the house. She denies worsening Raynaud's, reflux is controlled with omeprazole. This is a three-month follow-up visit. Lab data February 16, 2023 shows normal creatinine, unremarkable CBC and AST. Interval history is reviewed. Unfortunately, in November, she would a traumatic left distal tibia fracture required surgery with breana and screw fixation, it has been a long recovery, she still has some edema of the left lower leg. In terms of her hands, those are doing well on methotrexate, she denies any major Raynaud's, she does continue Celebrex. Monitoring labs are reviewed. She is hoping again for bilateral 1st CMC cortisone injections. SH: Nonsmoker PMH: Updated in EMR MEDS: [...] Left midfoot pain PLAN: 1: Clinically, her inflammatory arthritis and scleroderma syndrome appear well controlled on methotrexate, monitoring labs look great. 2: Similarly, Raynaud's appears well controlled on amlodipine. 3: She does have bilateral 1st CMC osteoarthritis, we did x-rays at last visit which are reviewed. She would again like local cortisone injections for symptomatic relief. After verbal consent and sterile prep, each 1st CMC joint was injected with 10 mg of triamcinolone and 0.25 cc of lidocaine. Shetolerated them well. We discussed follow-up she would like to follow-up in 3 months. documented in this encounter Plan of Treatment Upcoming Encounters Date Type Department Care Team Description 05/27/2023 9:45 AM MANAGER CONTRACT Appointment [facility] [address] [place] [address] Hans Gasca MD [address] [place] [address] documented as of this encounter Visit Diagnoses Diagnosis CREST syndrome (HRC)- Primary Systemic sclerosis Inflammatory polyarthropathy (HRC) Unspecified inflammatory polyarthropathy Primary osteoarthritis of both first carpometacarpal joints Primary localized osteoarthrosis, [facility] group home current use of therapeutic drug Pain of left midfoot documented in this encounter Care Teams Road Supervisor Relationship Specialty Start Date End Date Greg Bettencourt MD [address] [place] [address] PCP - General 03/21/13 documented as of this encounter
--- OUTSIDE RECORDS SUMMARY | 2023-05-07 15:54 | XMS_ITS | Encounter Summary ---
Author Name Unknown Organization [facility] Address [address] [place] [address] Care Team Providers Care Lunchroom Monitor Name Role Phone Greg Bettencourt MD Primary Care Provider [phone] Reason for Visit * Procedure/Equipment (Routine) - Incomplete Specialty Diagnoses / Procedures Referred By Fide t Referred To Contact Diagnoses Primary osteoarthritis of both first carpometacarpal joints Procedures XR Finger Lt Thumb 2+ Views Hans Gasca MD [address] [place] [address] Referral ID Status Reason Start Date Expiration Date V isits Requested Visits Authorized [id number] Incomplete 11/12/2022 2024 1 1 Encounter Details Date Type Department Care Team Description 11/12/2022 1:40 PM CDT Ancillary Procedure [facility] [address] [place], [place] [address] Hans Gasca MD [address] [place] [place], [place] [address] Primary osteoarthritis of both first carpometacarpal joints [...] Department Care Team Description 05/27/2023 9:45 AM NURSE MIDWIFE Appointment [facility] [address] [place], [place] [address] Hans Gasca MD [facility] [place] [address] documented as of this encounter Procedures Procedure Name Priority Date/Time Associated Diagnosis Comments XR FINGER LT THUMB 2+ VIEWS Routine 11/12/2022 1:58 PM [...] hand documented in this encounter Care Teams Lunchroom Monitor Relationship Specialty Start Date End Date Greg Bettencourt MD [address] [place] [address] PCP - General 03/21/13 documented as of this encounter
--- OUTSIDE RECORDS SUMMARY | 2023-05-07 15:54 | XMS_ITS | Encounter Summary ---
Author Name Unknown Organization [facility] Address [address] [place] [address] Care Team Providers Care Solid Waste Analyst Name Role Phone Greg Bettencourt MD Primary Care Provider [phone] Reason for Referral * Procedure/Equipment (Routine) - New Request Specialty Diagnoses / Procedures Referred By Contac t Referred To Contact Diagnoses Thoracic aortic aneurysm without rupture, unspecified part (HRC) Procedures Echocardiogram Winston Brooks MD [address] [place] [address] Referral ID Status Reason Start Date Expiration Date V isits Requested Visits Authorized [id number] New Request 05/22/2025 08/21/2026 1 1 LOOKOUT Reason for Visit * Reason Comments Follow-up Encounter Details Date Type Department Care Team Description 06/16/2022 2:45 PM FIRE LOOKOUT Office Visit [facility] [facility] [address] [place] [address] Winston Brooks MD [address] [place] [address] Nurse, Cardiology II Bv Thoracic aortic aneurysm without rupture, unspecified part (Primary Dx) Social History Tobacco Use Types Packs/Day Years [...] Sign Reading Time Taken Comments Blood Pressure 118/80 06/16/2022 2:57 PM FIRE LOOKOUT Pulse 74 06/16/2022 2:57 PM FIRE LOOKOUT Temperature - - Respiratory Rate - - Oxygen Saturation - - Inhaled Oxygen Concentration - - Weight 74.5 kg (164 lb 4 oz) 06/16/2022 2:57 PM FIRE LOOKOUT Height 162.6 cm (5' 4) 06/16/2022 2:57 PM FIRE LOOKOUT Body Mass Index 28.19 06/16/2022 2:57 PM FIRE LOOKOUT documented in this encounter Progress Notes * Winston Brooks MD - 06/16/2022 2:45 PM CST Images from the original note were not included. General Cardiology Clinic follow-up KELLY CAMEJO : 1955 CSN: [id number] Date of Service: 06/16/2022 History of present illness: Kelly Camejo is a 67 y.o. female who presents for follow-up of mild thoracic aortic ectasia. 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 I last saw her March 2021 at which time for her shortness of breath we obtained a coronary CTA showing very mild nonobstructive coronary artery disease. Recent echocardiogram showed stable aorta 4.3 cm. She is now here for follow-up. Enjoying Pilates, but with laying flat get some flushing. No new or progressive exertional cardiovascular symptoms. ROS: Otherwise negative. Pertinent medications: Amlodipine 10 mg daily Losartan 25 mg daily Toprol XL 50 mg daily Rosuvastatin 20 mg daily Objective: BP 118/80 (BP Location: Left Arm, BP Cuff Size: Regular) Pulse 74 Ht 5' 4 (162.6 cm) Wt 164 lb 4 oz (05986 g) BMI 28.19 kg/m?? No exam performed. Impression: 67-year-old female here for follow-up of mild thoracic aortic ectasia. Thoracic aorta 4.3-4.4 cm. Stable. Systemic hypertension. Incomplete crest syndrome. No pulmonary hypertension. Recommendations: Surveillance echo every 2-3 years reasonable to follow thoracic aortic ectasia. Mainstay of therapy is avoiding heavy lifting / straining, and persistent control of blood pressure. Follow-up in Cardiology p.r.n. and pending echo surveillance. Medication refills through primary care. Billing based on: complexity and time spent [10 minutes] on this encounter. Thong Brooks MD 06/16/2022 3:14 PM Cardiology Department LOOKOUT documented in this encounter Plan of Treatment Upcoming Encounters Date Type Department Care Team Description 05/27/2023 9:45 AM FIRE LOOKOUT Appointment [facility] [address] [place], [place] [address] Hans Gasca MD [facility] [place], [place] [id number] documented as of this encounter Visit Diagnoses Diagnosis Thoracic aortic aneurysm without rupture, unspecified part (HRC)- Primary documented in this encounter Care Teams Solid Waste Analyst Relationship Specialty Start Date End Date Greg Bettencourt MD [address] [place] [address] PCP - General 03/21/13 documented as of this encounter
--- OUTSIDE RECORDS SUMMARY | 2023-05-07 15:54 | XMS_ITS | Clinical Summary ---
Author Name Unknown Organization [facility] Address [address] [place] [address] Care Team Providers Care Cupboard Builder Name Role Phone [facility]- Vielka vailable Md, Not Listed Primary Care Provider Unavailabl e Allergies No known active allergies Medications Medication Sig Dispensed Refills Start Date End Date Status calcium carbonate, 600 mg elemental calcium, 600 mg calcium (1,500 mg) oral tablet Take 1 tablet by mouth once daily. 0 Active celecoxib (CELEBREX) 200 mg oral capsule Take 1 capsule (200 mg) by mouth once daily. 0 Active folic acid (FOLVITE) 1 mg oral tablet Take 1 tablet (1 mg) by mouth once daily. 0 Active methotrexate (TREXALL) 2.5 mg oral tablet Take 7 tablets (17.5 mg) by mouth every 7 (seven) days. Tuesdays 0 Active multivitamin (CERTAVITE) 18-400 mg-mcg oral tablet Take 1 tablet by mouth once daily. 0 Active amLODIPine (NORVASC) 10 mg oral tablet Take 1 tablet (10 mg) by mouth once daily. 0 Active metoprolol succinate, XL, (TOPROL XL) 50 mg oral extended release tablet 24 HR Take 1 tablet (50 mg) by mouth once daily. 0 Active omeprazole (PRILOSEC) 20 mg oral delayed release capsule Take 1 capsule (20 mg) by mouth once daily. 0 Active rosuvastatin (CRESTOR) 20 mg oral tablet Take 1 tablet (20 mg) by mouth once daily. 0 Active sertraline (ZOLOFT) 50 mg oral tablet Take 1 tablet (50 mg) by mouth once daily. 0 Active losartan (COZAAR) 25 mg oral tablet Take 1 tablet (25 mg) by mouth once daily. 0 Active oxyCODONE, immediate release, (ROXICODONE) 5 mg oral tablet Take 1 tablet (5 mg) by mouth every 4 (four) hours as needed. 15 tablet 0 11/27/2022 Active acetaminophen (TYLENOL) 500 mg oral tablet Take 2 tablets (1,000 mg) by mouth every 8 (eight) hours as needed for pain. 0 11/27/2022 Active senna-docusate (SENNA-S) 8.6-50 mg oral tablet Take 1-2 tablets by mouth twice a day as needed (While taking oxycodone for constipation.). 0 11/27/2022 Active Active Problems Problem Noted Date Diagnosed Date Fall down stairs, initial encounter 11/26/2022 Tibia/fibula fracture, left, closed, initial enc ounter 11/26/2022 Social History Tobacco Use Types Packs/Day Years Used Date Smoking Tobacco: Never Smokeless Tobacco: Never Tobacco Cessation:Counseling Given: Not Answered Alcohol Use Standard Drinks/Week Comments Yes 14 (1 standard drink = 0.6 oz pu re alcohol) Sex and Gender Information Value Date Recorded Sex Assigned at Female 12/01/2022 1:06 PM CDT Gender Identity Female 12/01/2022 1:06 PM CDT Sexual Orientation Not on file Last Filed Vital Signs Vital Sign Reading Time Taken Comments Blood Pressure 103/63 11/27/2022 3:39 PM CDT Pulse 77 11/27/2022 3:39 PM CDT Temperature 36.5 ??C (97.7 ??F) 11/27/2022 3:39 PM CD T Respiratory Rate 18 11/27/2022 3:39 PM CDT Oxygen Saturation 100% 11/27/2022 7:45 AM CDT Inhaled Oxygen Concentration - - Weight 72.3 kg (159 lb 6.3 oz) 11/27/2022 5:41 A M CDT Height 162.6 cm (5' 4) 11/26/2022 3:59 AM CDT Body Mass Index 27.36 11/26/2022 3:59 AM CDT Plan of Treatment Health Maintenance Due Date Last Done Comments Colonoscopy 1955 Dexa Scan 1953 Hepatitis C Screening 1955 Mammogram Screening 1955 Depression Assessment (PHQ-2) 1954 Yearly Review of HCD 2003 RSV (1 - 1-dose 60+ series) 2013 Pneumococcal 65+ (2 of 2 - PCV) 04/02/2022 COVID-19 Vaccine (5 - 2022-2 4 season) 2022 03/25/2022, 02/14/2021, 07/17/2020, Additional history exists Influenza Vaccine (#1) 2022 2, 01/21/2021, 01/02/2019, Additional history exists Diabetes Screening 11/27/2025 11/27/2022, 11/26/2022 Adult Tetanus Booster 04/02/2031 04/02/2021, 011 Zoster Vaccine Completed 12/04/2017, 08/18, 08/04/2017, Additional history exists Medical Devices Implanted Type Area Photography Assistant Device Identifier Shelf Expiration Date Model / Serial / Lot Nail 9mm 300mm Tib Tn Adv Rt - [id number] Implanted:Qty: 1 on 11/26/2022 by Harsh Kumari MD at [facility] Nail Left: Tibia [employer]ynthes 09/17/2032 04.043.120 S / / [id number] Pltsynt-Clvr 04/22/92/8h 241.381 - [id number] Implanted:Qty: 1 on 11/26/2022 by Harsh Kumari MD at [facility] Plate Left: Tibia [employer] 241.381 / / Scrsyn Cnc F/Th4.0/16 206.016 - [id number] Implanted:Qty: 2 on 11/26/2022 by Harsh Kumari MD at [facility] Screw/Anch or Left: Tibia [employer]ynthe[employer] 206.016 / / Advance Directives For more information, please contact: [phone] Latest Code Status on File Code Status Date Activated Date Inactivated Comments Full Code 11/26/2022 3:55 AM 11/27/2022 11:16 PM Question Answer Comments How was code status determined? Patient Care Teams Cupboard Builder Relationship Specialty Start Date End Date [facility]- [address] [place] [id number] PCP - Primary Care Clinic 11/26/22 , Not Listed no address PCP - General Internal Medicine 11/26/22
--- OUTSIDE RECORDS SUMMARY | 2023-05-07 15:54 | XMS_ITS | Encounter Summary ---
Author Name Unknown Organization [facility] Address [address] [place] [address] Care Team Providers Care Screen Cutter And Trimmer Name Role Phone Greg Bettencourt MD Primary Care Provider [phone] Encounter Details Date Type Department Care Team Description 05/09/2022 11:30 AM MEDIA PLANNER / BUYER Lab Visit [facility] [address] [place] [address] Inflammatory polyarthropathy (HRC) Social History Tobacco Use [...] Department Care Team Description 05/27/2023 9:45 AM MEDIA PLANNER / BUYER Appointment [facility] [address] [place] [address] Hans Gasca MD [address] [place] [id number] documented as of this encounter Procedures Procedure Name Priority Date/Time Associated Diagnosis Comments CBC AND DIFFERENTIAL PANEL Routine 05/09/2022 11:24 AM MEDIA PLANNER / BUYER Inflammatory polyarthropathy (HRC) CREATININE / GFR Routine 05/09/2022 11:2 4 AM MEDIA PLANNER / BUYER Inflammatory polyarthropathy (HRC) COMPLETE BLOOD COUNT-W/DIFF Routine 05/09/2022 11:24 AM MEDIA PLANNER / BUYER Inflammatory polyarthropathy (HRC) AST Routine 05/09/2022 11:24 AM MEDIA PLANNER / BUYER Inflammatory polyarthropathy (HRC) documented in this encounter Results * (ABNORMAL) Complete Blood Count-W/Diff (05/09/2022 11:24 AM MEDIA PLANNER / BUYER) WBC 5.5 3.5 - 10.5 x10(9)/L 05/09/2022 11:27 AM [facility] RBC 3.57(L) 3.90 - 5.03 x10(12)/L 05/09/2022 11:27 AM [facility] Hemoglobin 12.5 12.0 - 15.5 g/dL 05/09/2022 11:27 AM [facility] HCT 37.2 34.9 - 44.5 % 05/09/2022 11:27 AM [facility] MCV 104.2(H) 80.0 - 100.0 fL 05/09/2022 11:27 AM [facility] MCH 35.0(H) 27.6 - 33.3 pg 05/09/2022 11:27 AM [facility] MCHC 33.6 31.5 - 35.2 g/dL 05/09/2022 11:27 AM [facility] RDW 13.2 11.9 - 15.5 % 05/09/2022 11:27 AM [facility] Platelets 231 150 - 450 x10(9)/L 05/09/2022 11:27 AM [facility] Automated NRBC 0 <=0 /100 WBC 05/09/2022 11:27 AM [facility] Neutrophil Absolute 2.8 1.7 - 7.0 10(9)/L 05/09/2022 11:27 AM [facility] Lymphocyte Absolute 1.8 1.0 - 4.8 10(9)/L 05/09/2022 11:27 AM [facility] Monocyte Absolute 0.6 0.2 - 0.9 10(9)/L 05/09/2022 11:27 AM [facility] Eosinophil Absolute 0.2 0.0 - 0.5 10(9)/L 05/09/2022 11:27 AM [facility] Basophil Absolute 0.1 0.0 - 0.3 10(9)/L 05/09/2022 11:27 AM [facility] Immature Granulocyte % 0.6(H) 0.0 - 0.5 % 05/09/2022 11:27 AM [facility] Blood Venipuncture / Unknown 05/09/2022 11:24 AM MEDIA PLANNER / BUYER 05/09/2022 11:24 AM MEDIA PLANNER / BUYER Hans Gasca MD LAB_1 Performing Organization Address [facility] Phone Number [facility] [id number] [place] [address], [facility] [phone] * AST (05/09/2022 11:24 AM MEDIA PLANNER / BUYER) AST (SGOT) 39 10 - 40 U/L 05/09/2022 12:11 PM [facility] Blood Venipuncture / Unknown 05/09/2022 11:24 AM MEDIA PLANNER / BUYER 05/09/2022 11:24 AM MEDIA PLANNER / BUYER Hans Gasca MD LAB_1 Performing Organization Address [facility] Phone Number [facility] [address] [phone], [facility] [phone] * Creatinine / GFR (05/09/2022 11:24 AM MEDIA PLANNER / BUYER) Creatinine 0.70 0.55 - 1.02 mg/dL 05/09/2022 12:11 PM [facility] GFR, Estimated >60 >60 mL/min/1.7 3m2 05/09/2022 12:11 PM [facility] Blood Venipuncture / Unknown 05/09/2022 11:24 AM MEDIA PLANNER / BUYER 05/09/2022 11:24 AM MEDIA PLANNER / BUYER Hans Gasca MD LAB_1 Performing Organization Address [facility]/State/ZIP Co de Phone Number [facility] [address] [place] [address], [facility] [phone] documented in this encounter Visit Diagnoses Diagnosis Inflammatory polyarthropathy (HRC) Unspecified inflammatory polyarthropathy documented in this encounter Care Teams Screen Cutter And Trimmer Relationship Specialty Start Date End Date Greg Bettencourt MD [address] [place] [address] PCP - General 03/21/13 documented as of this encounter
--- OUTSIDE RECORDS SUMMARY | 2023-05-07 15:55 | XMS_ITS | Encounter Summary ---
Author Name Unknown Organization [facility] Address [address] [place] [id number] Care Team Providers Care Slabber Light Name Role Phone [facility]- Vielka vailable Md, Not Listed Primary Care Provider Unavailabl e Encounter Details Date Type Department Care Team (Latest Contact Info) Description 11/26/2022 Travel Social History Tobacco Use Types Packs/Day Years Used Date Smoking Tobacco: Never Smokeless Tobacco: Never Alcohol Use Standard Drinks/Week Comments Yes 14 (1 standard drink = 0.6 oz pu re alcohol) Sex and Gender Information Value Date Recorded Sex Assigned at Female 12/01/2022 1:06 PM CDT Gender Identity Female 12/01/2022 1:06 PM CDT Sexual Orientation Not on file COVID-19 Exposure Response Date Recorded In the last 10 days, have yo u been in contact with someone who was confirmed or suspected to have Coronavirus/COVID-19? No / Unsure 11/26/2022 2:43 AM CDT documented as of this encounter Plan of Treatment Not on file documented as of this encounter Visit Diagnoses Not on filedocumented in this encounter Care Teams Slabber Light Relationship Specialty Start Date End Date [facility]- [address] [place] [address] PCP - Primary Care Clinic 11/26/22 Md, Not Listed no address PCP - General Internal Medicine 11/26/22 documented as of this encounter
--- OUTSIDE RECORDS SUMMARY | 2023-05-07 15:55 | XMS_ITS | Encounter Summary ---
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 Intravenous, PRN propofol ( DIPRIVAN ) IV infusion (conc: 10 mg/mL), , Intravenous, CONTINUOUS PRN propofol 10 mg/mL (DIPRIVAN) IV injection-BOLUS, , Intravenous, PRN TERTIARY EXAMINATION: Temp (24hrs), Av.8 ??F (37.1 ??C), Min:98.3 ??F (36.8 ??C), Max:99.3 ??F (37.4 ??C) BP 116/68 Pulse 69 Temp 99.1 ??F (37.3 ??C) Resp 15 Ht 5' 4 (1.626 m) Wt 72.6 kg (160 lb) SpO2 95% BMI 27.46 kg/m?? Patient Vitals for the past 72 hrs: Weight 11/26/22 0359 72.6 kg (160 lb) CONSTITUTIONAL/PSYCHOLOGICAL: Calm, cooperative and appropriate for age and situation. Able to adequately participate in exam. NEUROLOGIC: Alert and oriented to person, place, time, and situation. GCS 15 (E4, V5, M6). Normal speech. HEENT: Head: normocephalic, atraumatic. Eyes: normal lids and conjunctivae. PERRL. EOMs intact. Ears: external canals normal. Nose: no deformity. No drainage. Throat/Oropharynx: Oral mucosa normal. Moist mucous membranes. NECK: Supple. No tracheal deviation. No palpable step-offs or deformities. No midline tenderness topalpation. CHEST: Normal diaphragmatic movement. Symmetrical chest rise and fall. No accessory muscle use. PULMONARY: LCTAB. Effort without distress. CARDIOVASCULAR: Heart: heart rate normal. Regular in rhythm. No rubs or gallops. GASTROINTESTINAL: Abdomen soft, non-distended, non-tender to palpation. No rebound or guarding. MUSCULOSKELETAL: Back: no palpable step-offs or deformities. No midline tenderness to palpation. Extremities: moves all extremities with purpose. Splint in place to LLE. CMS intact to BUE & BLE. Pelvis non-tender and stable to anterior-posterior palpation. INTEGUMENTARY: Skin warm, dry, and pink. Intake/Output Summary (Last 24 hours) at 11/26/2022 1057 Last data filed at 11/26/2022 1047 Gross per 24 hour Intake 99.45 ml Output 450 ml Net -350.55 ml RECENT LABS: Recent Labs 11/26/22 0306 WBC 6.7 RBC 3.45* HEMOGLOBIN 11.8* HEMATOCRIT 34.2* MCV 99 MCH 34* RDW 13.9 PLATELETCT 208 Recent Labs 11/26/22 0306 SODIUM 138 POTASSIUM 4.2 CHLORIDE 105 CARBONDIOXI 22 ANIONGAP 11.0 GLUCOSE 107* BUNUREANRO 10 CREATININE 0.60 CALCIUMSERUM 9.2 ESTGFRMDRD >60.00 IMAGING: XR OUTSIDE LOWER EXTREMITY STUDY Final Result XR OUTSIDE LOWER EXTREMITY STUDY Final Result XR OUTSIDE LOWER EXTREMITY STUDY Final Result XR OUTSIDE LOWER EXTREMITY STUDY Final Result ETOH SCREENING: No results found for this visit on 11/26/22. No data recorded Do you drink alcohol? yes AUDIT-C Questionnaire 1. How often do you have a drink containing alcohol? 2-3 times a week = 3 points 2. How many standard drinks containing alcohol do you have on a typical day? 1 or 2 = 0 points 3. How often do you have six or more drinks on one occasion? Never = 0 points Total: 3 (Positive Screen: Women >= 3, Men >= 4 (Note: if all points come from question 1 then this isconsidered a NEG screen) SBIRT complete Further intervention refused Acute Stress Disorder screening using PC-PTSD-5 Since the incident have you: Had nightmares about the event(s) or thoughts about the event(s) when you did not want to? no Tried hard not to think about the event(s) or went out of your way to avoid situations that reminded you of the event(s)? no Been constantly on guard, watchful, or easily startled? no Madison numb or detached from people, activities, or your surroundings? no Madison guilty or unable to stop blaming yourself or others for the event(s) or any problems the events may have caused? no (Positive screening: YES to any question(s), recommend psychology consult. Negative screening: NO to all questions) Education was provided. Mental Health Services consult negative screen ADDITIONAL COMMENTS: I reviewed the patient's new clinical labs and imaging test results as included in this note. I discussed the patient's care with bedside RN and orthopedics. ASSESSMENT/PLAN: Darcy Camejo is a 67 y.o. female who presented to [facility] on 11/26 with a closed left tib/fib fracture. She was admitted to the trauma service with orthopedic consultation. Fall from standing - Mechanical in nature, no further work-up indicated - Tertiary exam completed without new injury identified - Medication reconciliation pending - Will resume essential RECORDER HELPER GRAVITY PROSPECTING medications PRN - PT/OT - Pending - Multimodal pain regimen L tib/fib fx - Ortho consult - Anticipate OR today - NPO - Hold DVT ppx (per ortho) - NWB to LLE pre-op PMHx: Awaiting medication reconciliation. 1. AAA: 4.3 cm, stable & unchanged since 02/16/20, per chart review of ECHO (06/09/22). LVEF 60% 2. HTN 3. Reynaud's syndrome 4. CREST 5. Depression/anxiety Acute Pain Management: Multimodal. Lines: PIV. Fluids/Electrolytes/Nutrition: NPO pre-op. ADAT post-op. Ulcer Prophylaxis: N/A. Bowel Medications: Bowel regimen ordered. LBM: RECORDER HELPER GRAVITY PROSPECTING. Hayes: N/A. DVT Prophylaxis: Holding pre-op per ortho. Re-evaluate post-op. Restraints: N/A. Wounds/Skin Care/[place]/Sutures: Local skin cares per nursing staff. Pressure sore prevention protocols Antibiotics: N/A. Family Communication: Patient's at bedside. All questions answered to the best of my ability. Disposition: Criteria for Discharge: Definitive fixation of LLE per ortho. PT/OT recommendations. Adequate pain control on oral regimen. Post Hospital Plan: TBD - home with family/HH assistance vs TCU. 30 minutes total time spent with customer, more than 50% of time spent counseling and/or coordination of care. I have seen this patient and discussed my findings and plan with Dr. Chung. The assessment and plan for this patient is the product of our joint decision making. Jazmín Xiong, SHERRIE, AGACNP, MOTHER TESTER Department of Trauma, Emergency, General Surgery, and Surgical Critical Care * Coral Rosario RN - 11/26/2022 6:52 AM CDT Med-Surg Care Progression Note Type: Admission summary arrived 4am Length of stay: 0 days Code Status: Full Code Primary Problem: left tib fib fx after mistepped a stair Hx of Summary: w/pmhx arthritis, CREST syndrome . Daughter reports hx of acsending aneurysm and wants OR to be aware of her Raynards diagnoses. Transferred from [place]. Has been NPO. Puewick placed. Dilaudid x 1. F- Feeding & Fluids: NPO for OR A- Analgesic & Anticoagulation: Analgesic Dilaudid x 1. Anticoagulation/DVT prevention & plan SCDs. Not on yet S- Skin: Gabriel Subcategory Concern(s): Sensory Perception: (not recorded) Sensory Interventions: Appropriate support surface Moisture: (not recorded) Moisture Interventions: Change gown/bath/hygiene Activity: (not recorded) Activity Interventions: Reposition every 2 hours Nutrition: (not recorded) Nutrition Interventions: NPO Mobility: (not recorded) Mobility Interventions: Turning every 2 hrs Friction and Shear: (not recorded) Friction and Shear Interventions: . Total Gabriel Score: (not recorded): . T- Telemetry: No tele E- Emotional & Neuro: Participating in cares Neuro Alert and Oriented R- Respiratory: On room air H- Head OUT of Bed & Activity: Activate Fall Alert? (Enter 1 or 0): 1 Bedrest U- Urologic/bowel: No data recorded Purewick placed in ED. Changed 430am G- Glycemic Control: Not applicable T- Treatment: pain control. Ortho consult. I- Invasive Devices: PIV x 1 D- Discharge: Lives with in [place] * Jazmín Xiong APRN, CNP - 11/26/2022 3:09 AM CDT TRAUMA PROBLEM LIST/SUMMARY Admit Date: 11/26/2022 No past medical history on file. INJURIES Principal Problem: Fall down stairs, initial encounter Active Problems: Tibia/fibula fracture, left, closed, initial encounter PROCEDURES AND EVENTS 11/26 Trauma floor Ortho NPO OR Tertiary Exam: done 11/26 Screening Dates: AUDIT-C: done 11/26 ASD: done 11/26 Education Folder: done 11/26 Sutures & Floyd: Incidental Findings: Resolved Problems: Discharge follow up plans: documented in this encounter H&P Notes * Aspen Santoyo PA-C - 11/26/2022 2:34 AM CDT TRAUMA ADMISSION HISTORY AND PHYSICAL Patient Name: Darcy Camejo Address: No address on file. Age:67 y.o. Sex: female Admission Date/Time: 11/26/2022 2:14 AM Admitting provider: No admitting provider for patient encounter. Hospital Attending Physician: Pura Donovan MD Primary Care Provider: No primary care provider on file. Informant:patient Patient seen on 11/26/2022 at 02:30. Trauma Activation: Trauma Evaluation: Time Consulted 02:14 Arrival/Pre-Notification: Referring Hospital [facility] CHIEF COMPLAINT: ankle pain HPI: Darcy Camejo is a 67 y.o. female w/pmhx arthritis, CREST syndrome, s/p fall down one stairs. Tripped going down stairs, rolled ankle. Did not hit head no loc no foosh. Was able to hobble to call EMS. Was taken to OSH where imaging revealed bilmal. No numbness, tingling. Has been otherwise well; no recent illness. Presents with . Patient is primary historian. REVIEW OF SYSTEMS A comprehensive review of systems was negative except for items noted in the HPI/Subjective. Last Oral Intake: 183 Last Tetanus: Unknown PAST MEDICAL HISTORY: CREST syndrome Hypertension Anxiety PAST SURGICAL HISTORY: Left knee replacement R arthroscopic sugery MEDICATIONS: Celecoxib Folate Methotrexate Amlodipine Priolosec Losartan Rosuvastatin ALLERGIES: Patient has no allergy information on record. FAMILY HISTORY: No bleeding or clotting disorders No problems with anesthesia SOCIAL HISTORY: Lives in house with No cigarettes Daily ETOH - 1-2 glasses of wine per evening. No history of withdrawal. >6drinks once in a whileon the weekend. Not regularly. No rec drug use CODE STATUS VERIFICATION: full code PHYSICAL EXAM: BP 133/76 Pulse 72 Temp 99.3 ??F (37.4 ??C) Resp 16 SpO2 94% Constitutional: well nourished, well developed female, no acute distress Head: normocephalic, atraumatic Eyes: Normal lids and conjunctivae - PERRLA - EOMs intact Ears: externally normal Nose: no deformity Oropharynx: oral mucosa and pharynx normal, moist mucous membranes Neck: supple Respiratory: cta no dyspnea or wheeze Cardiovascular: Normal, S1, S2, regular rhythm, extremities well-perfused good cap refill in left toes Gastrointestinal: soft, nontender, nondistended Musculoskeletal: LLE in splint Integumentary: intact, warm, dry Neurological: alert, GCS - 15, Motor grossly normal, Speech: normal, Sensation intact /ADMINISTRATIVE SUPPORT CLERK: deferred Psych: appropriate affect Laboratory Data: No results found for this or any previous visit (from the past 24 hour(s)). Imaging: Reads pending transfer XR OUTSIDE LOWER EXTREMITY STUDY Final Result XR OUTSIDE LOWER EXTREMITY STUDY Final Result XR OUTSIDE LOWER EXTREMITY STUDY Final Result XR OUTSIDE LOWER EXTREMITY STUDY Final Result Additional Comments: I reviewed the patient's new clinical lab test results. I reviewed the patient's new imaging test results. I discussed the patient's care with Dr. Mcpherson, Dr. Donovan. ASSESSMENT/DIFFERENTIAL DIAGNOSIS: Principal Problem: Fall down stairs, initial encounter Active Problems: Tibia/fibula fracture, left, closed, initial encounter PLAN Darcy Camejo is a 67 y.o. female s/p Fall with above noted injuries. L tibia/fibula fracture: - not open - splinted - NPO - Ortho consult H/O Crest Syndrome H/O arthritis - RECORDER HELPER GRAVITY PROSPECTING methotrexate, celoxib H/O Hypertension H/O Hyperlipidemia - RECORDER HELPER GRAVITY PROSPECTING amlodipine, losartan-hctz, metoprolol XL, rosuvastatin H/O GERD - RECORDER HELPER GRAVITY PROSPECTING prilosec Surgical Optimization: Based on history and physical the patient is an appropriate risk for procedures in the OR as needed EKG pending DISPOSITION: Anticipated date of discharge 3-4d. Criteria for discharge is ortho consult, stabilization of injury, therapies. IP - Anticipated LOS >2Midnights due to acuity of clinical presentation requiring inpatient level of care Hayes: NA DVT Prophylaxis: mechanical Ulcer Prophylaxis: PPI - RECORDER HELPER GRAVITY PROSPECTING med Restraints: Not indicated Pain Management:: Other multimodal Sedation: none Warming Techniques: passive Family Conference: discussed with family Update Called To: [facility] Consult(s) Ortho - non-emergent 35 minutes total time spent with customer, more than 50% of time spent counseling and/or coordination of care. Aspen Santoyo PA-C Associated attestation - Ping Mcpherson MD - 11/26/2022 6:15 AM CDT I have personally seen and examined the patient in the emergency department. I have independently verified the physical exam findings, lab results, and imaging results. I discussed the case with Aspen Santoyo PA-C, and agree with the assessment and plan as documented in the attached note. Ping Mcpherson MD documented in this encounter Consult Notes * Saadia Elam, OT - 11/27/2022 9:42 AM CDT Occupational Therapy Acute Evaluation Patient Name: Darcy Camejo Today's Date: 11/27/2022 Admission Date: 11/26/2022 ASSESSMENT/PLAN/RECOMMENDATIONS Assessment/Plan/Recommendations OT Assessment Results: Impaired ADLs, Impaired functional mobility Strengths: Age, Prior level of function, Good family support, Patient motivation, Patient cooperation, Good strength Limitations/Discharge Barriers: Pain, Weight bearing status OT Frequency: No further acute OT needed Discharge Support Recommendations: Requires increased assist/support Requires assist with the following ADLs: Shower/bathing Requires assist with the following IADLs: Meal prep, Homemaking Post Acute Therapy Needs: No OT needs OT Plan Comments: Pt admitted to [facility] on 11/26/22 following a fall down the stairs with resulting tib/fib fx. S/p IMN L tibia, ORIF and screw fixation of L lateral malleolus 11/25 with permitted TTWB following surgery. Pt is independent with all ADLs/IADLs and mobility at baseline. Today able to demonstrate basic ADLs, including toileting and dressing with SBA. Good weight bearing adherence with all activity. Discussed adaptive equipment and DME for toileting and dressing and safety with FWW use. Pt reports good family support for more physically demanding IADL management available at discharge. No concerns for discharge from an OT standpoint. She does have split level stairs to be addressed byPT this afternoon. No additional OT needs, OT will sign off. GENERAL General Visit Type: Initial Evaluation Diagnosis: Fall down stairs Admission/Diagnosis Details: Pt sustained fall when she missed a step, sustained left distal third tibia shaft fracture and ipsilateral posterior malleolus and lateral malleolus fractures. Pt is s/p INTRAMEDULLARY TIBIA LEFT ORIF 11/26 Patient Seen In: Room Family/Caregiver Present: Yes PRECAUTIONS Precautions LE Weight Bearing Status: LLE Toe Touch Weight Bearing SAFETY INTERVENTIONS Safety Interventions Fall Risk?: Yes Safety Interventions/Patient Disposition: Standard interventions, Call light in hand, All needs within reach PAIN Patient complained of L knee pain; did not provide numerical rating. 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 [email or web address] PRIOR FUNCTION MOBILITY Prior Level of Functional Mobility Independent with: All Mobility Mobility Equipment Used: None COGNITIVE STATUS Cognitive Status Overall Cognitive Status: Within Functional Limits UPPER EXTREMITY ASSESSMENTS ROM RUE ROM: Functional LUE ROM : Functional Strength RUE Strength: Functional LUE Strength: Functional AM-PAC Outcome Measure 6 Clicks Daily ADL AM-PAC Putting on and taking off regular lower body clothing?: A Little Bathing (including washing, rinsing, drying)?: A Little Toileting, which includes using toilet, bedpan or urinal?: A Little Putting on and taking off regular upper body clothing?: None Taking care of personal grooming such as brushing teeth?: None Eating meals?: None AM-PAC Daily Activity Raw Score: 21 AM-PAC Daily Activity CMS 0-100% Score: 32.79 AM-PAC Daily Activity t-Scale Score: 44.27 The following scores are predictive of discharge disposition during acute hospitalization: Home= 20.1; Home with Home Health= 17.9; TCU=14; IRF=13.6; LTACH=11.5 Please refer to narrative for assessment of functional performance and discharge recommendations asscores may not always reflect mobility, cognitive aspects of performance or instrumental activitiesof daily living (IADLs) CURRENT ADL/IADL STATUS Current ADL Status Equipment Provided: Kitchen Steward, Long-handled sponge UE Dressing Assistance: Independent LE Dressing Assistance: SBA Toileting Assistance: SBA ADL Comments: Demonstrates toileting in bathroom with SBA and FWW just prior to OT arrival with present. Pt reporting no concerns. Observed standing at sink in bathroom with SBA and good adherence to LLE weight bearing. Discussed bathroom set-up with tub shower. Educated on tub transfer bench, long handle shower head, and long handle sponge for increase indep with bathing and weight bearing adherence. Additionally discussed compensatory sequencing techniques for LB dressing, dressing modifications, safety with carrying/transporting items with use of walker, and use of ada accommodation consultant in combination with walker. FUNCTIONAL MOBILITY Functional Transfers Sit to Stand: SBA Stand to Sit: SBA Toilet: SBA Functional Transfer Comments: Use of grab bar to simulate vanity she can use to pull to stand at home. Functional Mobility Functional Mobility: Ambulated in room for ADL purposes with close SBA and FWW. ACTIVITY TOLERANCE Activity Tolerance Endurance: Participates 10-20 min of therapy session PATIENT EDUCATION Patient Education Patient Education: Role of OT, Plan of care, Discharge recommendations, Compensatory techniques forADLs, Adaptive equipment TIME SPENT WITH PATIENT OT Timed Code Treatment Minutes OT Evaluation: 10 OT Self-Care/Home Management: 10 OT Total Minutes Spent with Patient Total Minutes Spent With Patient (billable): 20 Minutes GOALS STG Endurance/Activity Tolerance As a measure of improved activity tolerance, patient will perform: ADL task, while standing at the sink, for 5 minutes, with supervision Outcome: Goal Met * Saadia Garrison, PT - 11/27/2022 9:36 AM CDT Acute Physical Therapy Evaluation Patient Name: Darcy Camejo Today's Date: 11/27/2022 Admission Date: 11/26/2022 Precautions Precautions LE Weight Bearing Status: LLE Toe Touch Weight Bearing Precautions Comments: LLE jimy wrapped and splinted Assessment PT Assessment/Recommendations Assessment: Pt is a 67 yo female s/p accidental fall from misstep at home, sustained L tibial and ankle fxs, now s/p ORIF, NWB LLE. pt seen at bedside; present. She reports 5/10 pain in LLE. She is agreeable to therapy, and demonstrates independence with bed mobility, supervision/mod I withtransfers and gait (50 feet with RW). She was steady, but fatigues quickly with ambulation. Verbally discussed and educated pt and on DME for home-they already have RW and crutches, they are considering shower chair. Educated on how to navigate stairs, but pt fatigued and needing to use restroom this AM; will see later today for this. Anticipate safe d/c home pending stair navigation. No DME needs from PT end prior to d/c. Anticipate no home PT, but OP PT once pt has clearancing for WB on LLE. Strengths: Prior level of function, Good family support, Patient motivation, Patient cooperation, Ambulatory, Good strength, Strong discharge support Limitations/Discharge Barriers: Pain, Current medical status, Weight bearing status, Inability to safely negotiate stairs Endurance: Participates 10-20 min of therapy session Prognosis: Good Recommendations for Nursing: Mobilize assist of 1 with gait belt, Up to chair 2- 3x/day, Ambulate 2-3x/day, Use of assistive device with mobility Type of Assistive Device: rw Discharge Support Recommendations: Requires increased support/assist Mobility Needs at Discharge: Assist of 1 person with mobility Post Acute Therapy Needs: No PT needs until she can WB on ankle (defer to surgeon recs at 2 wk f/u) Plan PT Frequency: 1x/day, 3-5 days a week Interventions: Gait training, Therapeutic exercise, Neuromuscular re-education, Therapeutic activities Plan for Next Session: stairs Encounter Details General Diagnosis: Fall down stairs Admission/Diagnosis Details: Pt sustained fall when she missed a step, sustained left distal third tibia shaft fracture and ipsilateral posterior malleolus and lateral malleolus fractures. Pt is s/p INTRAMEDULLARY TIBIA LEFT ORIF 11/26, NWB LLE Pertinent Past Medical History: arthritis, CREST syndrome, L TKA Patient Seen In: Room Family/Caregiver Present: Yes Who was present?: Subjective Comments: Pt resting in bed, RN in room to admister meds. Pt pleasant, agreeable to therapy, rates 5/10 pain in LLE Subjective/Social History Home Setup Type of Home: House Lives With: Significant Other Home Layout: Split level Home Entry: Stairs to enter without rails Number of stairs: 1 Stairs within Home: Stairs with rails Rails: Unilateral Number of stairs: 6 Comment: Once up, pt can stay on main level Prior Level of Functional Mobility Independent with: All Mobility Mobility Equipment Used: None DME owned: Rolling walker, Crutches History of falls: denies, other than RECORDER HELPER GRAVITY PROSPECTING Pain Patient complained of 5/10 pain in LLE Objective Cognitive Status Orientation Level: Oriented X4 Therapy Vitals BP: 102/63 HR: 84 SpO2: 100 Oxygen Delivery Device: Room Air Vitals Comments: Pt on 2L at start of session, pt maintained w/ removal at start of session ROM RLE: WFL LLE: Impaired due to pain, Impaired due to recent surgery Strength Overall RLE Strength: WFL Overall LLE Strength: Impaired due to pain, Impaired due to recent surgery Sensation Light Touch: No apparent deficits Sensation Comments: Pt able to feel touch to toes and above jimy wrap on L thigh, otherwise difficult to assess w/ bandaging Patient is functioning as follows: Balance Balance: Static Sitting Balance, Static Standing Balance Static Sitting Balance Balance Support: No upper extremity support Level of Assistance: Independent Surface Type: Bed Rating: Good Static Standing Balance Balance Support: Bilateral upper extremity supported Level of Assistance: Standby assist, Modified independent Position: Single limb stance Surface: Level Rayne Rating: Good Bed Mobility Supine to Sit: Modified independent Sit to Supine: Modified independent Dangling: Independent Scooting: Modified independent Setup/Equipment: Bed rail, HOB elevated Transfers Transfer Type: Sit to/from Stand, Toilet/BSC Sit to/from Stand Level of Assist: Standby assist Assistive Device: Rolling walker Comments: Cues for sequencing, hand placement for safety; pt able to complete w/o assist, able to maintain NWB LLE well w/o cuing Toilet/BSC Level of Assistance: Supervision Assistive Device: Rolling walker Comments: safe and steady w/ transition Ambulation Ambulation Assessment: Bout 1 Bout 1 Surface: Level rayne Complexity: Forward stepping Distance (ft): 50+ Assistive Device: Rolling walker Level of Assist: Standby Assist Quality of Gait: Pt able to maintain NWB LLE with good hop technique in RLE with UE support. She did report a good amount of fatigue with use of UEs;however no LOB t/o. Short step length, and effortful, but steady Comments: Education provided to pt on technique and use of RW Stairs/Curb Negotiation Stairs/Curb Negotiation: Bout 1 Bout 1 Comments: Pt fatigued following amb and had to use the bathroom, PT will come back later today to educate pt on stair navigation [facility] AM-PAC 6-Clicks Turning over in bed (including adjusting bed clothes, sheets, and blankets): Modified independent/independent Sitting down and standing up from a chair with arms: Modified independent/independent Moving from lying on back to sitting on the side of bed: Modified independent/independent Moving to and from a bed to a chair: Modified independent/independent Walk in hospital room?: Minimum/contact guard/standby assist Climbing 3-5 steps with a railing: Maximum/moderate assist AM-PAC 6 Clicks: Mobility Total Score: 21 The following scores are predictive of discharge disposition during acute hospitalization: Home= 20or greater; Home with Home Health=18; Continued skilled care at appropriate facility= 14 or less. Treatment Therapeutic Activity Therapeutic Activity: Activity 1 Activity 1: Spent time educating pt on anticipated DME: RW, crutches, shower chair. Pt has RW and crutches. Will show pt and SO shower chair options in dept later today. Also spent time educating on sequencing of stair navigation via gluteal scooting method. Education/Safety Education Provided Patient Education: Role of PT, ROM/Positioning, Strengthening and conditioning, Bed mobility, Transfers, Ambulation, Safe use of assistive device, Post-surgical precautions, Safety with mobility, Plan of care, Importance of family training, Risk of falls, Discharge recommendations Family Education: Safe mobility techniques, Risk of falls, Home safety, Ongoing rehab, Discharge recommendations, Importance of the involvement in rehab Safety Interventions Fall Risk?: Yes Safety Interventions/Patient Disposition: Standard interventions Goals Time Frame Goals target date: 12/01/22 Patient/family participation in goal setting Patient/family participation in goal setting: Yes Patient goal preference: Home at d/c Sit to/from Stand Patient will perform sit to/from stand transfer with: Modified independence Assistive Device: Rolling walker Gait Level of Assist: Supervision Assistive Device: Rolling walker Distance: 75+ Stair Negotiation Patient will perform stairs with: Minimal assist UE Support: Unilateral rail Number of Stairs: 4+ Pattern: Gluteal scoot TIME SPENT WITH PATIENT PT Time Spent with Patient for Evaluation PT Evaluation: 10 PT Timed Code Treatment Minutes (outside of evaluation) PT Therapeutic Activity: 5 PT Gait Trainin PT Timed Code Treatment Minutes PT Total Billable Minutes: 23 Minutes * Harsh Kumari MD - 11/26/2022 12:54 PM CDTAssociated Order(s): CONSULT ORTHOPEDIC SURGERY ORTHOPAEDIC TRAUMA CONSULTATION NOTE PATIENT NAME: Darcy Camejo ADDRESS: [id number] [id number] AGE: 67 y.o. SEX: female Admission Date/Time: 11/26/2022 2:14 AM Hospital Attending Physician: Ping Mcpherson MD CONSULTATION ASSESSMENT AND PLAN/RECOMMENDATIONS: Principal Problem: Fall down stairs, initial encounter Active Problems: Tibia/fibula fracture, left, closed, initial encounter PLAN I recommended open reduction internal fixation of her tibia and ankle fractures. I discussed the risk benefits and alternatives with the patient including risk of infection, wound healing complication, neurovascular injury, blood loss, of the proposed procedure with the patient who agrees with the plan to proceed. Postoperatively she will be toe-touch weightbearing for 2 weeks and then transitionto weightbearing as tolerated will be determined by intraoperative fixation. Please see the operative note for details. The planned surgical procedure has a Low risk of significant bleeding. Has the patient recently received therapeutic anticoagulation? No DVT Prophylaxis: mechanical, Lovenox Patient seen on 11/26/2022 at 0915. I was asked to see this patient at the request of Aspen Santoyo PA-C for evaluation of a left tibia and left ankle fracture. CHIEF COMPLAINT: Left leg pain HPI: The patient is a 67 y.o. female who presents with a left distal third tibia shaft fracture andipsilateral posterior malleolus and lateral malleolus fractures due to mechanical fall when she missed a step. The patient endorses new onset severe pain in the left leg, which prevents use of the left lower extremity or weightbearing. The patient denies antecedent pain. The patient normally ambulates without the assistance of gait aids. The patient denies loss of consciousness. The patient denies other symptoms such as numbness, tingling, or weakness except due to pain. She underwent total knee arthroplasty 2 to 3 years ago and this has been well-functioning ever since. REVIEW OF SYSTEMS A comprehensive review of systems was negative except for items noted in the HPI/Subjective. PAST MEDICAL HISTORY No past medical history on file. PAST SURGICAL HISTORY No past surgical history on file. MEDICATIONS Medications Prior to Admission Medication Sig Dispense Refill Last Dose amLODIPine (NORVASC) 10 mg oral tablet Take 1 tablet (10 mg) by mouth once daily. calcium carbonate, 600 mg elemental calcium, 600 mg calcium (1,500 mg) oral tablet Take 1 tablet bymouth once daily. celecoxib (CELEBREX) 200 mg oral capsule Take 1 capsule (200 mg) by mouth once daily. folic acid (FOLVITE) 1 mg oral tablet Take 1 tablet (1 mg) by mouth once daily. Losartan-Hydrochlorothiazide 100-25 mg oral tablet Take 1 tablet by mouth once daily. methotrexate (TREXALL) 2.5 mg oral tablet Take 8 tablets (20 mg) by mouth every 7 (seven) days. metoprolol succinate, XL, (TOPROL XL) 50 mg oral extended release tablet 24 HR Take 1 tablet (50 mg) by mouth once daily. multivitamin (CERTAVITE) 18-400 mg-mcg oral tablet Take 1 tablet by mouth once daily. omeprazole (PRILOSEC) 20 mg oral delayed release capsule Take 1 capsule (20 mg) by mouth once daily. rosuvastatin (CRESTOR) 20 mg oral tablet Take 1 tablet (20 mg) by mouth once daily. sertraline (ZOLOFT) 50 mg oral tablet Take 1 tablet (50 mg) by mouth once daily. ALLERGIES Patient has no known allergies. FAMILY HISTORY No family history on file. SOCIAL HISTORY Social History Socioeconomic History Marital status: Spouse name: Not on file Number of children: Not on file Years of education: Not on file Highest education level: Not on file Occupational History Not on file Tobacco Use Smoking status: Never Smokeless tobacco: Never Vaping Use Vaping Use: Never used Substance and Sexual Activity Alcohol use: Yes Alcohol/week: 14.0 standard drinks Types: 14 Glasses of wine per week Drug use: Never Sexual activity: Yes Other Topics Concern Not on file Social History Narrative Not on file Social Determinants of Health Financial Resource Strain: Not on file Food Insecurity: Not on file Transportation Needs: Not on file Physical Activity: Not on file Stress: Not on file Social Connections: Not on file Intimate Partner Violence: Not on file Housing Stability: Not on file PHYSICAL EXAM BP 116/68 Pulse 69 Temp 99.1 ??F (37.3 ??C) Resp 15 Ht 5' 4 (1.626 m) Wt 72.6 kg (160 lb) SpO2 95% BMI 27.46 kg/m?? General: Well appearing, no distress Psych: Alert, oriented to person/place/time. Pleasant mood and affect. HENT: Normocephalic, atraumatic. Anicteric sclerae. Ears normal externally. Neck: Midline trachea, no pain with ROM Chest: Symmetric excursion, no distress, normal effort Heart: regular rate and rhythm, palpable DP/PT/radial pulses bilaterally Abdomen: Soft, non-tender/non-distended Neuro: CN function grossly normal. Normal sensation and motor function in the left foot at her baseline without deficits. Extremities: Well-perfused left foot with a palpable DP pulse. Soft compartments. Normal skin envelope about the left lower extremity. Physical Exam Laboratory Data Results for orders placed or performed during the hospital encounter of 11/26/22 (from the past 24 hour(s)) EKG Result Value Ref Range EKG Protime/INR Result Value Ref Range INR 1.0 0.9 - 1.2 CBC (HGB,HCT,WBC,RBC,Platelet) Result Value Ref Range WBC 6.7 4.3 - 10.8 K/uL RBC 3.45 (L) 4.20 - 5.40 M/uL HEMOGLOBIN 11.8 (L) 12.0 - 16.0 gm/dL HEMATOCRIT 34.2 (L) 36.0 - 48.0 % MCV 99 80 - 100 fL MCH 34 (H) 27 - 33 pg MCHC 35 33 - 36 gm/dL RDW 13.9 11.5 - 14.5 % PLATELET COUNT 208 150 - 400 K/UL MPV 9.0 6.5 - 12 fL Basic Metabolic Profile Result Value Ref Range SODIUM 138 136 - 145 mmol/L POTASSIUM 4.2 3.4 - 5.1 mmol/L CHLORIDE 105 98 - 108 mmol/L CARBON DIOXIDE 22 20 - 31 mmol/L BUN (UREA NITRO) 10 9 - 23 mg/dL CREATININE 0.60 0.55 - 1.02 mg/dL EST GFR (CKD-EPI) >60.00 >60.00 mL/min/1.73m2 GLUCOSE 107 (H) 74 - 106 mg/dL CALCIUM, SERUM 9.2 8.7 - 10.4 mg/dL ANION GAP 11.0 0.0 - 15.0 mmol/L Type & Screen Result Value Ref Range GROUP AND RH AB Positive ANTIBODY SCREEN Negative ABORh Confirm (Lab Use Only) Result Value Ref Range GROUP AND RH AB Positive Protime/INR Result Value Ref Range INR 1.0 0.9 - 1.2 Additional Comments: I reviewed the patient's new clinical lab test results. Hemoglobin 11.8, WBC 6.7, creatinine 0.60 I personally viewed the patient's Tibia: left: Left displaced distal third tibia shaft fracture. Minimally gapped left posterior malleolus fracture without step- off. Minimally displaced left lateral malleolus fracture . Harsh Kumari MD * Dayna Crenshaw PA-C - 11/26/2022 7:11 AM CDT Orthopedic Preliminary Consult Reviewed XR images w/ Dr. Kumari Left tibia/fibula fracture Plan for OR today Remain NPO LLE NWB Hold DVTP Full consult to follow Dayna Crenshaw PA-C Ortho-trauma amion: [phone] documented in this encounter Nursing Notes * Cary Marie, RN - 11/27/2022 2:48 PM CDT Problem: Falls/Injury-Risk of Goal: Absence of Falls/Injury 11/27/20221447 by Cary Marie RN Outcome: Completed 11/27/20221446 by Cary Marie RN Outcome: Met this shift Problem: Discharge Planning Goal: Establish appropriate post-hospitalization placement 11/27/20221447 by Cary Marie, EPIFANIO Outcome: Completed 11/27/20221446 by Cary Marie RN Outcome: Met this shift Problem: Communication Goal: Demonstrates/exhibits ability to communicate needs effectively 11/27/20221447 by Cary Marie, EPIFANIO Outcome: Completed 11/27/20221446 by Cary Marie RN Outcome: Met this shift Problem: SAFETY Goal: *Communicates safety needs 11/27/20221447 by Cary Marie, EPIFANIO Outcome: Completed 11/27/20221446 by Cary Marie, EPIFANIO Outcome: Met this shift Problem: Pain Goal: Exhibits reduction in pain to a level of acceptable comfort 11/27/20221447 by Cary Marie, EPIFANIO Outcome: Completed 11/27/20221446 by Cary Marie RN Outcome: Met this shift Problem: Pressure Injury - Risk of Goal: Absence of pressure injury 11/27/20221447 by Cary Marie, EPIFANIO Outcome: Completed 11/27/20221446 by Cary Marie RN Outcome: Met this shift Problem: Anticoagulation, pharmacologic therapy Goal: Adheres to therapeutic regimen 11/27/20221447 by Cary Marie, EPIFANIO Outcome: Completed 11/27/20221446 by Cary Marie RN Outcome: Met this shift Problem: Mobility - Impaired Goal: Demonstrates ability to perform physical activity independently or with assistive devices as needed 11/27/20221447 by Cary Marie, EPIFANIO Outcome: Completed 11/27/20221446 by Cary Marie RN Outcome: Met this shift Goal: Verbalizes an understanding of immobility risks and complications 11/27/20221447 by Cary Marie, EPIFANIO Outcome: Completed 11/27/20221446 by Cary Marie RN Outcome: Met this shift * Cary Marie RN - 11/27/2022 2:47 PM CDT PT D/C this afternoon Problem: Falls/Injury-Risk of Goal: Absence of Falls/Injury Outcome: Met this shift Problem: Discharge Planning Goal: Establish appropriate post-hospitalization placement Outcome: Met this shift Problem: Communication Goal: Demonstrates/exhibits ability to communicate needs effectively Outcome: Met this shift Problem: SAFETY Goal: *Communicates safety needs Outcome: Met this shift Problem: Pain Goal: Exhibits reduction in pain to a level of acceptable comfort Outcome: Met this shift Problem: Pressure Injury - Risk of Goal: Absence of pressure injury Outcome: Met this shift Problem: Anticoagulation, pharmacologic therapy Goal: Adheres to therapeutic regimen Outcome: Met this shift Problem: Mobility - Impaired Goal: Demonstrates ability to perform physical activity independently or with assistive devices as needed Outcome: Met this shift Goal: Verbalizes an understanding of immobility risks and complications Outcome: Met this shift * Saadia Garrison, PT - 11/27/2022 2:43 PM CDT Acute Physical Therapy Treatment Patient Name: Darcy Camejo Today's Date: 11/27/2022 Admission Date: 11/26/2022 Precautions Precautions LE Weight Bearing Status: LLE NWB Precautions Comments: LLE jimy wrapped and splinted Assessment PT Assessment/Recommendations Assessment: Pt seen in room and then brought to dept via w/c for stair assessment. present t/o to see how pt gluteal scooted up stairs. she did so with good maintenence of NWB to LLE. Pt alsowas educated on use of shower chair for boosting up/down stairs; however she prefers gluteal scooting. Pt safe to d/c home w/ family support. She has RW and is considering which type of shower bench she will want. Pt not pending PT at this time. updated RN. No ongoing rehab recommended until pt canamb on foot, then possible OP PT Strengths: Prior level of function, Good family support, Patient motivation, Patient cooperation, Ambulatory, Good strength, Strong discharge support Limitations/Discharge Barriers: Pain, Current medical status, Weight bearing status, Inability to safely negotiate stairs Endurance: Participates 10-20 min of therapy session Prognosis: Good Recommendations for Nursing: Mobilize assist of 1 with gait belt, Up to chair 2- 3x/day, Ambulate 2-3x/day, Use of assistive device with mobility Type of Assistive Device: rw Discharge Support Recommendations: Is safe to discharge to previous living situation with prior level of assist/support Mobility Needs at Discharge: Supervision during mobility Post Acute Therapy Needs: No PT needs Plan PT Frequency: 1x/day, 3-5 days a week Interventions: Gait training, Therapeutic exercise, Neuromuscular re-education, Therapeutic activities Plan for Next Session: stairs Encounter Details General Diagnosis: Fall down stairs Admission/Diagnosis Details: Pt sustained fall when she missed a step, sustained left distal third tibia shaft fracture and ipsilateral posterior malleolus and lateral malleolus fractures. Pt is s/p INTRAMEDULLARY TIBIA LEFT ORIF 11/26 Pertinent Past Medical History: arthritis, CREST syndrome, L TKA Patient Seen In: Room Family/Caregiver Present: Yes Who was present?: Subjective Comments: Pt pleasant, just got pain meds, agreeable to therapy; plan to try stairs withpossible d/c today. pt rates pain 5/10 prior to meds Subjective/Social History Home Setup Type of Home: House Lives With: Significant Other Home Layout: Split level Home Entry: Stairs to enter without rails Number of stairs: 1 Stairs within Home: Stairs with rails Rails: Unilateral Number of stairs: 6 Comment: Once up, pt can stay on main level Prior Level of Functional Mobility Independent with: All Mobility Mobility Equipment Used: None DME owned: Rolling walker, Crutches History of falls: denies, other than [employer]PECTING Pain Patient complained of 5/10 pain in LLE Objective Cognitive Status Orientation Level: Oriented X4 Therapy Vitals BP: 102/63 HR: 84 SpO2: 100 Oxygen Delivery Device: Room Air Vitals Comments: Pt on 2L at start of session, pt maintained w/ removal at start of session Therapeutic Activity Transfers Sit to/from Stand Level of Assist: Modified independent Assistive Device: Rolling walker Comments: Cues for sequencing, hand placement for safety; pt able to complete w/o assist, able to maintain NWB LLE well w/o cuing Miscellaneous Therapeutic Activity Therapeutic Activity: Activity 1 Activity 1: Spent time educating pt on safety with transfers in/out of car, toilet, shower. Provided pictures of DME recs for shower chair Gait Training Ambulation Bout 1 Surface: Level rayne Complexity: Forward stepping Distance (ft): 10+multiple shorter distances Assistive Device: Rolling walker Level of Assist: Modified independent Quality of Gait: Good balance and maintaining NWB Comments: Education provided to pt on technique and use of RW Stairs Bout 1 Method: Gluteal scooting Number of Stairs: 4 UE Support: No UE support Level of Assist: Standby Assist Pattern: Gluteal Scoot Comments: Pt navigated up stairs via gluteal scooting. She maintained NWB to LLE with use of BUEs and RLE to boost self up. Pt safe and steady with this technique. Educated pt and on need forsmall stool and bench/chair to boost up to seated height to allow for easier transition with sit>stand, which they both verbalize they have the appropriate benches at home. Pt feels safe and confident with this navigation. Quick demonstration also perfomred with shower chair method, sit<>Stand to boost up stairs if pt ends up purchasing a bench/chair for home. Therapeutic Exercise Seated Seated Exercise Comment: Educated pt on seated ex for LLE: quad set, knee flex/ext, and hip flexion, abduction. Reviewed her TKA ex and informed her she can work on those (minus the ankle) as long asshe can maintain NWB and perform in seated position. [facility] AM-PAC 6-Clicks Turning over in bed (including adjusting bed clothes, sheets, and blankets): Modified independent/independent Sitting down and standing up from a chair with arms: Modified independent/independent Moving from lying on back to sitting on the side of bed: Modified independent/independent Moving to and from a bed to a chair: Modified independent/independent Walk in hospital room?: Modified independent/independent Climbing 3-5 steps with a railing: Minimum/contact guard/standby assist AM-PAC 6 Clicks: Mobility Total Score: 23 The following scores are predictive of discharge disposition during acute hospitalization: Home= 20or greater; Home with Home Health=18; Continued skilled care at appropriate facility= 14 or less. Education/Safety Education Provided Patient Education: Role of PT, ROM/Positioning, Strengthening and conditioning, Transfers, Ambulation, Safe use of assistive device, Post-surgical precautions, Safety with mobility, Discharge recommendations Family Education: Safe mobility techniques, Risk of falls, Home safety, Ongoing rehab, Discharge recommendations, Importance of the involvement in rehab Safety Interventions Fall Risk?: Yes Safety Interventions/Patient Disposition: Standard interventions GOALS-The interventions during this session were provided to address the goals set forth on evaluation and are ongoing unless otherwise indicated. Time Frame Goals target date: 12/01/22 Sit to/from Stand Patient will perform sit to/from stand transfer with: Modified independence Assistive Device: Rolling walker Outcome: Goal met Stair Negotiation Patient will perform stairs with: Minimal assist UE Support: Unilateral rail Number of Stairs: 4+ Pattern: Gluteal scoot Outcome: Goal met TIME SPENT WITH PATIENT PT Timed Code Treatment Minutes (outside of evaluation) PT Therapeutic Activity: 10 PT Gait Trainin PT Timed Code Treatment Minutes PT Total Billable Minutes: 25 Minutes * Pratik Salvador RN - 11/27/2022 6:37 AM CDT Problem: Falls/Injury-Risk of Goal: Absence of Falls/Injury Outcome: Ongoing Problem: Discharge Planning Goal: Establish appropriate post-hospitalization placement Outcome: Ongoing Problem: Communication Goal: Demonstrates/exhibits ability to communicate needs effectively Outcome: Ongoing Problem: SAFETY Goal: *Communicates safety needs Outcome: Ongoing Problem: Falls/Injury-Risk of Goal: Absence of Falls/Injury Outcome: Ongoing Problem: Discharge Planning Goal: Establish appropriate post-hospitalization placement Outcome: Ongoing Problem: Communication Goal: Demonstrates/exhibits ability to communicate needs effectively Outcome: Ongoing Problem: SAFETY Goal: *Communicates safety needs Outcome: Ongoing * Raquel Samuels RN - 11/26/2022 10:20 PM CDT Problem: Falls/Injury-Risk of Goal: Absence of Falls/Injury Outcome: Met this shift Problem: SAFETY Goal: *Communicates safety needs Outcome: Met this shift Problem: Pain Goal: Exhibits reduction in pain to a level of acceptable comfort Outcome: Met this shift Problem: Anticoagulation, pharmacologic therapy Goal: Adheres to therapeutic regimen Outcome: Met this shift * Pamela Taylor RN - 11/26/2022 3:16 PM CDT Problem: Falls/Injury-Risk of Goal: Absence of Falls/Injury Outcome: Met this shift Problem: Communication Goal: Demonstrates/exhibits ability to communicate needs effectively Outcome: Met this shift Problem: Pain Goal: Exhibits reduction in pain to a level of acceptable comfort Outcome: Met this shift * Pamela Aquino LISW - 11/26/2022 10:57 AM CDT Problem: Discharge Planning Goal: Establish appropriate post-hospitalization placement Outcome: Ongoing Flowsheets (Taken 11/26/2022 1057) Date of Last CM Visit: 11/26/22 Discharge Planning Initial Assessment Patients chart reviewed. Patient discussed in rounds. Admitting diagnoses: Fall down stairs, initial encounter [W10.8XXA] Admitted from: Home Prior: Living Arrangements: Spouse Support Systems: Spouse/significant other;Children Primary decision maker: Patient. No ACP docs on file DME prior to admission: None. Has crutches and a walker Anticipated Discharge Needs: Continue to assess Care coordination initiated: Care discussed during rounds with nursing;Met with patient;Chart reviewed Met with pt and her Yobani to introduce CM role and assess for discharge needs. Pt lives independently with her Yobani in a private home. Their daughter lives nearby. Pt is retired; Yobani is still working but able to take as much time off as needed to assist pt post-op. Pt does not use any DME at baseline but does own a walker and crutches. Discharge needs pending post-op mobility and therapy eval. Anticipate pt will be able to return home with family support. Yobani will transport home when stable. Barriers to discharge: None identified Care management will continue to follow. ROSE Linda Pager [phone] documented in this encounter OR Notes * OR Surgeon - Harsh Kumari MD - 11/26/2022 10:55 AM CDT [facility] Orthopedic Operative Note Intramedullary Nailing Tibial Shaft Fracture PREOPERATIVE DIAGNOSIS: Left displaced distal third tibial shaft fracture Closed left distal fibula/lateral malleololus fracture Minimally displaced left posterior malleolus fracture POSTOPERATIVE DIAGNOSIS: Same PROCEDURE PERFORMED: Open treatment of left tibia fracture with intramedullary device Percutaneous screw fixation of left posterior malleolus fracture Open reduction internal fixation of left lateral malleolus fracture Physician applied stress radiograph left ankle SURGEON: Harsh Kumari MD FURNITURE SALESPERSON: Sharan Donaldson PA-C, whose assistance was required for positioning, prep and drape, exposure, fracture reduction, instrumentation, and closure. ANESTHESIA: General EBL: 100 mL COMPLICATIONS: None DISPOSITION: PACU CONDITION: Stable INDICATIONS: The patient is a 67 y.o. female who presents with a tibia shaft and lateral malleolus fracture due to a ground-level fall when she missed a step. The patient has a normal neurovascular exam, and there is no evidence of compartment syndrome. The patient is an appropriately indicated candidate for open treatment with an intramedullary device. The risks, benefits and alternatives to theproposed procedure were discussed in detail. Risks discussed included the risks of bleeding, infection, nerve damage, nonunion, malunion, hardware failure and possible need for removal of hardware discussed. The possibility of post traumatic and post surgical pain and stiffness were discussed. The possibility of and warning signs of compartment syndrome were also discussed. Benefits of surgery discussed included improved chance of healing in acceptable alignment and early weightbearing. Alternatives to surgery were discussed but not recommended. The patient elected to proceed. The informed consent was signed and placed on chart. I met with the patient preoperatively and marked the operativeextremity. PROCEDURE: The patient was brought into the operating room and placed supine on operating table. After induction of general anesthesia, all bony prominences were well-padded and a bump was placed beneath the ipsilateral buttock. A bone foam leg ramp was placed beneath the extremity. A tourniquet was applied to the thigh. The extremity was prepped and draped in normal sterile fashion. Antibiotic administration was confirmed and a time-out completed. Attention was turned toward obtaining appropriate starting point for nailing. Her old total knee incision was reincised sharply. We elevated a lateral flap to get to a lateral semiextended start point. We made a small incision in the capsule later al to the patella tendon and then advanced the guidepin down to a start point on the proximal tibia. We confirmed pin placement and trajectory on AP and lateral fluoroscopy and adjusted this as needed until we were quite satisfied. When that was complete, we gained access to the intramedullary canal using the opening reamer with protective sleeve. The ball-tipped guidewire was advanced to fracture site. The tibia fracture was reduced utilizing a percutaneously placed clamp. We then advanced thewire across the fracture site to a central position within the tibial plafond, confirmed by fluoroscopy. We then measured for and selected a size 300 mm nail on lateral fluoroscopy at the knee. We then turned our attention to the posterior malleolus. The distal incision was localized using fluoroscopy we made a small anterior incision at the level of the plafond and. We bluntly dissected down to the tibia and then we advanced the guidewire for the 4.0 cannulated screw system down to a start point on the distal tibia. We confirmed the start point on AP and lateral fluoroscopy and then advanced the guidepin into the distal tibia. We confirmed pin placement on AP and lateral fluoroscopy and then drilled for and placed in appropriate length 4.0 mm cannulated screw over the wire. Good closure of the fracture gap was noted with placement of the screw. We then obtained a start point for a slightly more medial screw and advanced the wire for this into the distal tibia. We confirmed position on AP and lateral fluoroscopy again and then drilled for and placed an additional 4.0 mm cannulated screw. Without was complete, we returned our attention to the tibia. We then sequentially reamed up to a size 10.5 mm reamer and selected a size 9 mm tibia nail. We then advanced the Synthes tibial nail over the guidewire to an appropriate depth confirmed by fluoroscopy. We also confirmed that the fracture did not now reduce or comminuted during placement of the nail. When that was complete, we obtained perfect [place] imaging distally and drilled for and placed 2 distal interlocking screws. We back slapped the nail to close the fracture gap. Two proximal interlocking screws were then placed utilizing radiolucent targeting jig. Fluoroscopic images were obtainedon AP, lateral and mortise of the ankle as well as AP, lateral of the knee and tibia demonstrating appropriate fracture alignment and appropriate hardware placement. We then turned our attention to the fibula. The lateral malleolus was quite mobile on exam. I made a lateral incision and dissected down to the fracture site. The fracture was reduced with lobster claw and pointed reduction forceps. I then secured the main fracture line with a 3.5 mm lag screw, lagby technique. We then selected a Synthes one third tubular locking plate, contoured this to fit thedistal fibula and then secured this to the bone with a single 3.5 mm bicortical screw. Good purchase and good buttress effect of the plate was noted. Fluoroscopic imaging then confirmed appropriate reduction and plate placement. I then drilled for and placed additional nonlocking fixation proximal and distal to the fracture to complete the construct. An external rotation stress x-ray was performed which did not demonstrate any widening of the medial clear space or gapping of the tibiofibular relationship. As such no syndesmotic hardware was placed. Wounds were copiously irrigated sterile saline and closed in layers with 0 Vicryl for the medial parapatellar incision, 2-0 vicryl for subcutaneous tissue and 3-0 nylon for skin. Dry sterile dressings were applied with Xeroform 4 x 4's and sterile cotton roll. The patient was awakened from general anesthesia and taken to recovery in stable condition. There were no complications and patient tolerated procedure well. PLAN: Toe-touch weightbearing left lower extremity for 2 weeks postop. Splint immobilization for 2 weeks postop. Anticipate transition to a boot and initiate weightbearing as tolerated in 2 weeks. Pain control, minimize narcotics, NSAIDs OK DVT prophylaxis with 81 mg ASA for 4 weeks Antibiotic prophylaxis with Ancef for 24 hours Follow-up in 2 weeks for Wound checks Suture removal New x-rays AP/Lateral tibia out of plaster nonweightbearing Harsh Kumari MD [facility] Orthopedics documented in this encounter ED Notes * Pura Donovan MD - 11/26/2022 2:23 AM CDT CHIEF COMPLAINT: Ankle fracture HPI: Initial history obtained at 2:23 AM 11/26/22. Darcy Camejo is a 67 y.o. female who presents to the ED for evaluation of ankle fracture. The patient reports tripping and falling down some steps today. She states she didn't hit her head or loseconsciousness. She denies back pain, chest pain, abdominal pain, or other physical concerns. She states she doesn't take blood thinners. Independent Historian: None - Patient only Review of External Notes: I reviewed the note from [facility] from 11/25/22. MEDICATIONS: No current facility-administered medications on file prior to encounter. Current Outpatient Medications on File Prior to Encounter Medication Sig Dispense Refill amLODIPine (NORVASC) 10 mg oral tablet Take 1 tablet (10 mg) by mouth once daily. calcium carbonate, 600 mg elemental calcium, 600 mg calcium (1,500 mg) oral tablet Take 1 tablet bymouth once daily. celecoxib (CELEBREX) 200 mg oral capsule Take 1 capsule (200 mg) by mouth once daily. folic acid (FOLVITE) 1 mg oral tablet Take 1 tablet (1 mg) by mouth once daily. Losartan-Hydrochlorothiazide 100-25 mg oral tablet Take 1 tablet by mouth once daily. methotrexate (TREXALL) 2.5 mg oral tablet Take 8 tablets (20 mg) by mouth every 7 (seven) days. metoprolol succinate, XL, (TOPROL XL) 50 mg oral extended release tablet 24 HR Take 1 tablet (50 mg) by mouth once daily. multivitamin (CERTAVITE) 18-400 mg-mcg oral tablet Take 1 tablet by mouth once daily. omeprazole (PRILOSEC) 20 mg oral delayed release capsule Take 1 capsule (20 mg) by mouth once daily. rosuvastatin (CRESTOR) 20 mg oral tablet Take 1 tablet (20 mg) by mouth once daily. sertraline (ZOLOFT) 50 mg oral tablet Take 1 tablet (50 mg) by mouth once daily. PAST MEDICAL HISTORY: No past medical history is described. PHYSICAL EXAM: Physical Exam Temperature: 99.3 ??F (37.4 ??C) HR: 71 Respirations: 16 BP: 107/67 SpO2: 92 % CONSTITUTIONAL: Non-toxic appearing HENT: No signs of head injury Eyes: Conjunctivae are normal. Neck: No meningismus. Trachea midline. Cardiovascular: Normal rate. Regular rhythm. Normal heart sounds. Pulmonary/Chest: Effort normal. Breath sounds normal. No tachypnea. No stridor. Abdominal: Soft. Non-tender. No rebound or guarding. Musculoskeletal: No bony tenderness. No c-spine tenderness. Full ROM. Long leg splint placed. Normal cap refill, sensation, and movement Neurological: Alert. Skin: Skin is warm and dry. No rash or lesions noted. Psychiatric: Normal affect. ED COURSE: Laboratory: Labs Reviewed CBC (HGB,HCT,WBC,RBC,PLATELET) - Abnormal; Notable for the following components: Result Value RBC 3.45 (*) HEMOGLOBIN 11.8 (*) HEMATOCRIT 34.2 (*) MCH 34 (*) All other components within normal limits BASIC METAB PROFILE - Abnormal; Notable for the following components: GLUCOSE 107 (*) All other components within normal limits PROTIME/INR - Normal PROTIME/INR - Normal TYPE AND SCREEN ABORH CONFIRM (LAB USE ONLY) Imaging: XR OUTSIDE LOWER EXTREMITY STUDY Final Result XR OUTSIDE LOWER EXTREMITY STUDY Final Result XR OUTSIDE LOWER EXTREMITY STUDY Final Result XR OUTSIDE LOWER EXTREMITY STUDY Final Result Interventions: Medications saline FLUSH syringe 10 mL (has no administration in time range) saline FLUSH syringe 10 mL (has no administration in time range) lidocaine / sod bicarb (buffered lidocaine) syringe for IV starts 0.1-0.3 mL (has no administrationin time range) lidocaine 1% injection (conc: 10 mg/mL) 0.1-0.3 mL (has no administration in time range) lidocaine (LMX-4) topical cream 1 Application (has no administration in time range) melatonin tablet 3 mg (has no administration in time range) ibuprofen tablet 400 mg (has no administration in time range) acetaminophen (TYLENOL) tablet 1,000 mg (has no administration in time range) Or acetaminophen (TYLENOL) rectal suppository 650 mg (has no administration in time range) lidocaine 4% (Salonpas) adhesive patch, medicated 1-3 patch (has no administration in time range) methocarbamoL (ROBAXIN) tablet 250 mg (has no administration in time range) Or methocarbamoL (ROBAXIN) tablet 500 mg (has no administration in time range) oxyCODONE (immediate release) (ROXICODONE) tablet 2.5-5 mg (has no administration in time range) HYDROmorphone (DILAUDID) syringe 0.2-0.4 mg (0.4 mg Intravenous Given 11/26/22 0414) Assessments: Notable Events: Independent Interpretation (X-rays, CTs, rhythm strip): I independently interpreted all x-rays and CTs Consultations/Discussion of Management or Tests: None Social Determinants of Health affecting care: None ED Vitals: Patient Vitals for the past 24 hrs: BP Temp Pulse Resp SpO2 Height Weight 11/26/22 0359 -- -- -- -- -- 5' 4 (1.626 m) 72.6 kg 11/26/22 0244 -- -- 72 -- 94 % -- -- 11/26/22 0229 133/76 -- 85 -- (!) 89 % -- -- 11/26/22 0214 107/67 99.3 ??F (37.4 ??C) 71 16 92 % -- -- MDM: Darcy Camejo is a 67 y.o. female who presents to the ED tonight as a transfer from an outside hospital where she was diagnosed with fractures of the left ankle. She has at least a bimalleolar fracture, possibly trimalleolar. She has no other injuries elsewhere on her body that are concerning to her. She has no medical concerns. She is not on blood thinners. Her pain is well controlled at this point. She was already splinted which looked appropriate and she has no deficits to circulation or sensation distally so I did not resplint her. I ordered basic preoperative labs including CBC, BMP, and EKG. Those are pending at the time of admission. I spoke with Dr. Mcpherson, on the trauma servicewho accepted the admission and had no further questions, concerns, or recommendations for care while in the ED. DIAGNOSIS: ICD-10-CM 1. Closed trimalleolar fracture of left ankle, initial encounter S82.852A DISPOSITION: Admit to the care of the hospitalist ATTESTATION: Scribe Attestation: I, Carisa Washington, am serving as a scribe to document services personally performed by Pura Donovan MD, based on my observations and the provider's statements to me. Provider Attestation: Portions of this medical record were completed by a scribe. UPON MY REVIEW AND AUTHENTICATION BY ELECTRONIC SIGNATURE, this confirms (a) I performed the applicable clinical services, and (b) the record is accurate. Pura Donovan MD 11/26/22 11/26/2022 [facility] EMERGENCY DEPARTMENT * Marcos Stern RN - 11/26/2022 2:15 AM CDT Agree with previous note. Pt currently reports pain 10/27. Kalie harvey MD at bedside. * Domenico Arcos MD - 11/26/2022 1:06 AM CDT Brief History/Relevant Results: Patient fell down the stairs. Imaging shows bimalleolar fracture. Orthopedics at sending hospital states patient needs higher level of orthopedic care. I inquired whether patient could be managed as an outpatient with this injury, and sending provider and orthopedicsboth felt that patient needed to be managed as an inpatient. 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 Prior to admission medications were reviewed with [facility] The [employer] medication list has been updated and reflected in the chart below. Please use the [employer] medication section for ordering home doses during admission. Medication related issues (discrepancies, interactions, additions, removals, changes, compliance/adherence): Updated: MTX dosing to 17.5mg from 20mg weekly (takes on Tuesdays), losartan is single product not on combo hctz tablet. PRIOR TO ADMISSION MEDICATION LIST: Prior to Admission Medications Prescriptions Last Dose Informant Patient Reported? Taking? amLODIPine (NORVASC) 10 mg oral tablet 11/25/2022 Yes Yes Sig: Take 1 tablet (10 mg) by mouth once daily. calcium carbonate, 600 mg elemental calcium, 600 mg calcium (1,500 mg) oral tablet 11/25/2022 Yes Yes Sig: Take 1 tablet by mouth once daily. celecoxib (CELEBREX) 200 mg oral capsule 11/25/2022 Yes Yes Sig: Take 1 capsule (200 mg) by mouth once daily. folic acid (FOLVITE) 1 mg oral tablet 11/25/2022 Yes Yes Sig: Take 1 tablet (1 mg) by mouth once daily. losartan (COZAAR) 25 mg oral tablet 11/25/2022 Yes Yes Sig: Take 1 tablet (25 mg) by mouth once daily. methotrexate (TREXALL) 2.5 mg oral tablet 11/25/2022 Yes Yes Sig: Take 7 tablets (17.5 mg) by mouth every 7 (seven) days. Tuesdays metoprolol succinate, XL, (TOPROL XL) 50 mg oral extended release tablet 24 HR 11/25/2022 Yes Yes Sig: Take 1 tablet (50 mg) by mouth once daily. multivitamin (CERTAVITE) 18-400 mg-mcg oral tablet 11/25/2022 Yes Yes Sig: Take 1 tablet by mouth once daily. omeprazole (PRILOSEC) 20 mg oral delayed release capsule 11/25/2022 Yes Yes Sig: Take 1 capsule (20 mg) by mouth once daily. rosuvastatin (CRESTOR) 20 mg oral tablet 11/25/2022 Yes Yes Sig: Take 1 tablet (20 mg) by mouth once daily. sertraline (ZOLOFT) 50 mg oral tablet 11/25/2022 Yes Yes Sig: Take 1 tablet (50 mg) by mouth once daily. Facility-Administered Medications: None This patient obtains medications from [id number] - [place], [place] - [address] [facility]. Thank you for the opportunity to participate in the care of this patient. Phone #:[phone] Time spent reconciling meds:8 min Location: face to face encounter Joselyn B. PharmD, BCPS, 11/26/2022 2:30 PM documented in this encounter Plan of Treatment Scheduled Referrals Name Type Priority Associated Diagnoses Orde r Schedule Follow Up Follow Up Routine Ordered: 11/27 Follow Up Follow Up Routine Ordered: 11/27 Follow Up Follow Up Routine Ordered: 11/27 documented as of this encounter Procedures Procedure Name Priority Date/Time Associated Diagnosis Comments BASIC METAB PROFILE Routine 11/27/2022 6 :58 AM CDT CBC (HGB,HCT,WBC,RBC,PLATELET ) Routine 11/27/2022 6:58 AM CDT XR FLUORO LESS THAN ONE HOUR MANUAL STRESS STAT 11/26/2022 12:14 PM CDT TREAT TIBIAL SHAFT FX, INTRAM* 11/26/2022 10:01 AM CDT Unspecified fracture of shaft of left tibia, initial encounter for closed fracture Unspecified fracture of shaft of left fibula, initial encounter for closed fracture PROTIME/INR Routine 11/26/2022 5:27 AM CDT ABORH CONFIRM (LAB USE ONLY) STAT 11/26/2022 5:25 AM CDT TYPE AND SCREEN Routine 11/26/2022 3:06 AM CDT BASIC METAB PROFILE STAT 11/26/2022 3 :06 AM CDT CBC (HGB,HCT,WBC,RBC,PLATELET ) STAT 11/26/2022 3:06 AM CDT PROTIME/INR Routine 11/26/2022 3:05 AM CDT ELECTROCARDIOGRAM STAT 11/26/2022 3:0 4 AM CDT XR OUTSIDE LOWER EXTREMITY STUDY STAT 11/26/2022 2:30 AM CDT XR OUTSIDE LOWER EXTREMITY STUDY STAT 11/26/2022 2:28 AM CDT XR OUTSIDE LOWER EXTREMITY STUDY STAT 11/26/2022 2:27 AM CDT XR OUTSIDE LOWER EXTREMITY STUDY STAT 11/26/2022 2:26 AM CDT documented in this encounter Results * (ABNORMAL) Basic Metab Profile (11/27/2022 6:58 AM CDT) Only the most recent of2 resultswithin the time period is included. Sodium 140 136 - 145 mmol/L ATELLICA ANALYZER 11/27/2022 7:59 AM T [facility] Potassium 3.8 3.4 - 5.1 mmol/L ATELLICA ANALYZER 11/27/2022 7:59 AM [facility] Chloride 107 98 - 108 mmol/L ATELLICA ANALYZER 11/27/2022 7:59 AM [facility] Carbon Dioxide 27 20 - 31 mmol/L ATELLICA ANALYZER 11/27/2022 7:59 AM [facility] BUN (Urea Nitro) 9 9 - 23 mg/dL ATELLICA ANALYZER 11/27/2022 7:59 AM [facility] Creatinine 0.65 0.55 - 1.02 mg/dL ATELLICA ANALYZER 11/27/2022 7:59 AM [facility] Est GFR (CKD-EPI) >60.00 >60.00 mL/min/1. 73m2 ATELLICA ANALYZER 11/27/2022 7:59 AM [facility] Comment:Calculation based on the Chronic Kidney Disease Epidemiology Collaboration (CKD-EPI) equation refit without adjustment for race. Glucose 107(H) 74 - 106 mg/dL ATELLICA ANALYZER 11/27/2022 7:59 AM [facility] Calcium, Serum 9.5 8.7 - 10.4 mg/dL ATELLICA ANALYZER 11/27/2022 7:59 AM [facility] Anion Gap 6.0 0.0 - 15.0 mmol/L ATELLICA ANALYZER 11/27/2022 7:59 AM [facility] Blood 11/27/2022 6:58 AM CDT 11/27/2022 7:30 AM CDT Ping Mcpherson MD CHEMISTRY ORDERAB LE Performing Organization Address City/[facility]/ZIP Co de Phone Number [facility] [address] [place] [phone] * (ABNORMAL) CBC (HGB,HCT,WBC,RBC,Platelet) (11/27/2022 6:58 AM CDT) Only the most recent of2 resultswithin the time period is included. [facility] WBC 8.6 4.3 - 10.8 K/uL 11/27/2022 7:45 AM CDT [facility] RBC 3.16(L) 4.20 - 5.40 M/uL 11/27/2022 7:45 AM CDT [facility] Hemoglobin 10.5(L) 12.0 - 16.0 gm/dL 11/27/2022 7:45 AM T [facility] Hematocrit 33.0(L) 36.0 - 48.0 % 11/27/2022 7:45 AM T [facility] MCV 104(H) 80 - 100 fL 11/27/2022 7:45 AM CDT [facility] MCH 33 27 - 33 pg 11/27/2022 7:45 AM T [facility] MCHC 32(L) 33 - 36 gm/dL 11/27/2022 7:45 AM T [facility] RDW 14.1 11.5 - 14.5 % 11/27/2022 7:45 AM T [facility] Platelet Count 210 150 - 400 K/UL 11/27/2022 7:45 AM T [facility] MPV 9.3 6.5 - 12 fL 11/27/2022 7:45 AM T [facility] Blood 11/27/2022 6:58 AM CDT 11/27/2022 7:31 AM CDT Ping Mcpherson MD HEMATOLOGY ORDERA BLE Performing Organization Address City/[facility]/ZIP Co de Phone Number [facility] [address] [place] [phone] * XR FLUORO MANUAL STRESS (11/26/2022 12:14 PM CDT) Anatomical Region Laterality Modality Computed Radiogr aphy 11/26/2022 4:18 PM CDT Impressions 11/26/2022 4:20 PM CDT IMPRESSION: A total of 9 intraoperative fluoroscopic images are obtained of the distal left lower extremity. Intramedullary nail fixation of the left tibia. Nondisplaced oblique fracture of the distal fibula. Alignment of the ankle appears to be anatomic on neutral and stress views. REPORT SIGNED BY DR. Fahad Mosqueda Narrative 11/26/2022 4:20 PM CDT EXAM: XR FLUORO MANUAL STRESS DATE: 11/26/2022 12:14 PM CLINICAL: ??S82.852A Displaced trimalleolar fracture of left lower leg, initial encounter for closed fracture, Other-Document in comments below. COMPARISON: None. Procedure Note Fahad Mosqueda MD - 11/26/2022 EXAM: XR FLUORO MANUAL STRESS DATE: 11/26/2022 12:14 PM CLINICAL: S82.852A Displaced trimalleolar fracture of left lower leg,initial encounter for closed fracture, Other-Document in comments below. COMPARISON: None. IMPRESSION IMPRESSION: A total of 9 intraoperative fluoroscopic images are obtainedof the distal left lower extremity. Intramedullary nail fixation of theleft tibia. Nondisplaced oblique fracture of the distal fibula. Alignmentof the ankle appears to be anatomic on neutral and stress views. REPORT SIGNED BY DR. Fahad Mosqueda Harsh Kmuari MD XRAY ORDERABLE * Protime/INR (11/26/2022 5:27 AM CDT) Only the most recent of2 resultswithin the time period is included. INR 1.0 0.9 - 1.2 11/26/2022 6:27 AM CDT [facility] Blood 11/26/2022 5:27 AM CDT 11/26/2022 6:07 AM CDT Ping Mcpherson MD COAGULATION ORDER ABLE Performing Organization Address City/State/[facility] de Phone Number [facility] [address] [place] [phone] * ABORh Confirm (Lab Use Only) (11/26/2022 5:25 AM CDT) Group and Rh AB Positive 11/26/2022 6:33 AM CDT [facility] Blood 11/26/2022 5:25 AM CDT 11/26/2022 6:05 AM CDT Ping Mcpherson MD BLOOD BANK ORDERA BLE Performing Organization Address [facility] de Phone Number [facility] [address] [place] [id number] * Type & Screen (11/26/2022 3:06 AM CDT) [facility] Group and Rh AB Positive 11/26/2022 4:53 AM CDT [facility] Antibody Screen Negative 11/26/2022 4:53 AM CDT [facility] Blood 11/26/2022 3:06 AM CDT 11/26/2022 3:24 AM CDT Aspen Santoyo PA-C BLOOD BANK ORDERABLE Performing Organization Address [facility] de Phone Number [id number] [place] [phone] * EKG (11/26/2022 3:04 AM CDT) [facility] EKG [facility] Comment: ?[facility] ? Test Date: ?2022-11-26 Pat Name: ? DARCY HEMAN ?Department: ?? ED ?Room: ? ED22 Gender: ? F ?Assistant Sales Manager: ?? [id number] : ?1955 ? Requested By: PURA DONOVAN MD Order Number: [id number] ?Reading MD: ?? Pura Donovan MD ? Measurements Intervals ?[place] ? Rate: ? 68 ? P: ?39 ME: ? 166 ?QRS: ?13 QRSD: ? 86 ? T: ?24 QT: ? 401 ? QTc: ?428 ? Interpretive Statements Indication for EKG: ??Preop Rhythm: ??Normal sinus rhythm. ?? Morphology: ??No new ST/T changes suggestive of ischemia. Intervals: ??Normal intervals. [place]: ??Normal axis. No previous ECG available for comparison Electronically Signed On 11-26-2022 3:10:00 CDT by Pura Donovan MD 11/26/2022 3:04 AM CDT Pura Donovan MD EKG ORDERABLE Performing Organization Address [facility] Co de Phone Number [facility] [address] [facility] [place] [address] * XR OUTSIDE LOWER EXTREMITY STUDY (11/26/2022 2:30 AM CDT) Only the most recent of4 resultswithin the time period is included. Study Outside XRAY ORDERABLE documented in this encounter Visit Diagnoses Diagnosis Fall down stairs, initial encounter- Primary Closed trimalleolar fracture of left ankle, initial encounter Tibia/fibula fracture, left, closed, initial encounter documented in this encounter Admitting Diagnoses Diagnosis Fall down stairs, initial encounter documented in this encounter Administered Medications Inactive Administered Medications - up to 3 most recent administrations Medication Order MAR Action Action Date Dose Rate Site saline FLUSH syringe 10 mL 10 mL, Intravenous, EVERY 8 HOURS, First dose on Thu11/26/22 at 0600, Until Discontinued Given 11/27/2022 6:00 AM CDT 10 mL Given 11/26/2022 9:25 PM CDT 10 mL Given 11/26/2022 7:57 AM CDT 10 mL acetaminophen (TYLENOL) rectal suppository 650 mg 650 mg, Rectal, THREE TIMES A DAY, First dose on Thu11/26/22 at 1400, Until Discontinued acetaminophen (TYLENOL) tablet 1,000 mg 1,000 mg, oral, THREE TIMES A DAY, First dose on Thu11/26/22 at 0800, Until Discontinued Given 11/26/2022 7:56 AM CDT 1,000 mg acetaminophen (TYLENOL) tablet 1,000 mg 1,000 mg, oral, THREE TIMES A DAY, First dose on Thu11/26/22 at 1400, Until Discontinued Given 11/27/2022 2:40 PM CDT 1,000 mg Given 11/27/2022 8:48 AM CDT 1,000 mg Given 11/26/2022 9:23 PM CDT 1,000 mg amLODIPine (NORVASC) tablet 10 mg 10 mg, oral, DAILY, First dose on Thu11/27/22 at 1400, Until Discontinued Given 11/27/2022 2:43 PM CDT 10 mg aspirin enteric coated tablet 81 mg 81 mg, oral, TWICE A DAY, First dose on Thu11/27/22 at 0800, Until Discontinued Given 11/27/2022 8:49 AM CDT 81 mg calcium carbonate (600 mg elemental calcium) tablet 1 tablet 1 tablet, oral, DAILY, First dose on Thu11/26/22 at 1445, Until Discontinued Given 11/27/2022 8:49 AM CDT 1 tablet Given 11/26/2022 4:29 PM CDT 1 tablet ceFAZolin (Ancef) 1 g in sodium chloride 0.9 % 100 mL IV piggyback 1 g, Intravenous, EVERY 8 HOURS (NS), 2 doses, First dose on Thu11/26/22 at 1800, Last dose on Thu11/27/22 at 0200, Administer over 30 Minutes New Bag 11/27/2022 2:42 AM CDT 1 g 200 mL/hr New Bag 11/26/2022 5:56 PM CDT 1 g 200 mL/hr enoxaparin (LOVENOX) injection 40 mg 40 mg, Subcutaneous, TWICE A DAY, First dose on Thu11/26/22 at 2000, Until Discontinued, The minimum weight for this order is 35 kg. For 1 mg/kg dose patients >190 kg, consider using an unfractionated heparin infusion. For 1.5 mg/kg dose patients >125 kg, use enoxaparin 1 mg/kg q12h per dose rounding guidelines. This medication has a Blackbox Warning. Click the formulary reference link for more information. Given 11/27/2022 8:51 AM CDT 40 mg Abdomen Given 11/26/2022 7:25 PM CDT 40 mg Ab domen folic acid (FOLVITE) tablet 1 mg 1 mg, oral, DAILY, First dose on Thu11/26/22 at 1445, Until Discontinued Given 11/27/2022 8:49 AM CDT 1 mg Given 11/26/2022 4:27 PM CDT 1 mg HYDROmorphone (DILAUDID) syringe 0.2-0.4 mg 0.2-0.4 mg, Intravenous, EVERY 3 HOURS NEEDED, Starting on Thu11/26/22 at 0355, Until Thu11/26/22 at 1343, for pain while strict NPO, may give in addition to non-opioid analgesics when ordered Given 11/26/2022 4:14 AM CDT 0.4 mg HYDROmorphone (DILAUDID) syringe 0.2-0.4 mg 0.2-0.4 mg, Intravenous, EVERY 5 MINUTES NEEDED, 5 doses, Starting on Thu11/26/22 at 1216, Until Thu11/26/22 at 1343, Phase 1, POST-ACUTE PAIN MANAGEMENT Given 11/26/2022 1:28 PM CDT 0.2 mg Given 11/26/2022 1:23 PM CDT 0.3 mg Given 11/26/2022 1:15 PM CDT 0.2 mg hydrOXYzine HCl (VISTARIL) injection 25 mg 25 mg, IntraMUSCULAR, ONCE NEEDED, MAY REPEAT X 1, 2 doses, Starting on Thu11/26/22 at 1216, Until Thu11/26/22 at 1412, Phase 1/2, for augmentation of narcotic based analgesia while in recovery area and unable to take PO. Not to be given within the past 6 hours. Given 11/26/2022 1:06 PM CDT 25 mg Right Deltoid ibuprofen tablet 400 mg 400 mg, oral, EVERY 6 HOURS (NS), First dose on Thu11/26/22 at 0400, Until Discontinued Given 11/27/2022 2:40 PM CDT 400 mg ibuprofen tablet 400 mg 400 mg, oral, EVERY 6 HOURS (NS), 8 doses, First dose on Thu11/26/22 at 1400, Last dose on Thu11/28/22 at 0800 Given 11/27/2022 2:00 PM CDT 400 mg Given 11/27/2022 8:49 AM CDT 400 mg Given 11/27/2022 2:40 AM CDT 400 mg ketorolac (ToradoL) injection 15 mg 15 mg, Intravenous, EVERY 6 HOURS (NS), 8 doses, First dose on Thu11/26/22 at 1400, Last dose on Thu11/28/22 at 0800, Maximum duration of treatment is 5 days. Given 11/26/2022 1:22 PM CDT 15 mg lactated Ringers (LR) IV infusion at 75 mL/hr, Intravenous, CONTINUOUS, Starting on Thu11/26/22 at 1230, Until Thu11/26/22 at 1412, Phase 1 New Bag 11/26/2022 12:30 PM CDT 75 mL/hr losartan (COZAAR) tablet 25 mg 25 mg, oral, DAILY, First dose on Thu11/27/22 at 0930, Until Discontinued Given 11/27/2022 9:59 AM CDT 25 mg melatonin tablet 3 mg 3 mg, oral, AT BEDTIME, First dose on Thu11/26/22 at 0400, Until Discontinued Given 11/26/2022 9:23 PM CDT 3 mg methocarbamoL (ROBAXIN) tablet 250 mg 250 mg, oral, EVERY 6 HOURS NEEDED, Starting on Thu11/26/22 at 0355, Until Thu11/27/22 at 2311, muscle spasm, muscle pain methocarbamoL (ROBAXIN) tablet 500 mg 500 mg, oral, EVERY 6 HOURS NEEDED, Starting on Thu11/26/22 at 0355, Until Thu11/27/22 at 2311, muscle spasm, muscle pain metoprolol succinate (XL) (TOPROL XL) extended release tablet 24 HR 50 mg 50 mg, oral, DAILY, First dose on Thu11/27/22 at 0930, Until Discontinued Given 11/27/2022 9:59 AM CDT 50 mg multivitamin (CERTAVITE) tablet 1 tablet 1 tablet, oral, DAILY, First dose on Thu11/26/22 at 1445, Until Discontinued Given 11/27/2022 8:49 AM CDT 1 tablet Given 11/26/2022 4:27 PM CDT 1 tablet omeprazole (PriLOSEC) delayed release capsule 20 mg 20 mg, oral, DAILY, First dose on Thu11/26/22 at 1700, Until Discontinued Given 11/27/2022 8:49 AM CDT 20 mg Given 11/26/2022 4:27 PM CDT 20 mg oxyCODONE (immediate release) (ROXICODONE) tablet 2.5-5 mg 2.5-5 mg, oral, EVERY 4 HOURS NEEDED, Starting on Thu11/26/22 at 1333, Until Betty 11/27/22 at 2311, Pain, when taking PO Given 11/27/2022 1:27 PM CDT 5 mg Given 11/26/2022 4:27 PM CDT 5 mg oxyCODONE (immediate release) (ROXICODONE) tablet 5 mg 5 mg, oral, NEEDED, MAY REPEAT X1, 2 doses, Starting on Thu11/26/22 at 1216, Until Thu11/26/22 at 1412, Phase 1/2, Pain, when taking PO, pain while in recovery area Given 11/26/2022 1:19 PM CDT 5 mg rosuvastatin (CRESTOR) tablet 20 mg 20 mg, oral, DAILY, First dose on Thu11/26/22 at 1445, Until Discontinued Given 11/27/2022 8:49 AM CDT 20 mg Given 11/26/2022 4:27 PM CDT 20 mg sertraline (ZOLOFT) tablet 50 mg 50 mg, oral, DAILY, First dose on Thu11/26/22 at 1445, Until Discontinued Given 11/27/2022 8:55 AM CDT 50 mg Given 11/26/2022 4:27 PM CDT 50 mg sodium chloride 0.9 % IV solution at 75 mL/hr, Intravenous, CONTINUOUS, Starting on Thu11/26/22 at 1345, Until Thu11/26/22 at 1436, Post-Op New Bag 11/26/2022 2:27 PM CDT 75 mL/h r documented in this encounter Active and Recently Administered Medications Times are shown in CDT. Scheduled Medication Order 11/25/2022 11/26/2022 11/27/2022 saline FLUSH syringe 10 mL 10 mL, Intravenous, EVERY 8 HOURS, First dose on Thu11/26/22 at 0600, Until Discontinued 0757 (Given - Provider: Pamela Taylor RN)0940 (JUN Hold - Provider: Interface, Incoming Adt - Reason: Procedure)1400 (Automatically Held - Provider: Interface, Incoming Adt)1412 (JUN Unhold - Provider: Interface, Incoming Adt)2125 (Given - Provider: Raquel Samuels RN) 0600 (Given - Provider: Pratik Salvador RN)1400 (Not Given - Provider: Cary Marie RN - Reason: Clinically appropriate (comment) - Comment: not given out) acetaminophen (TYLENOL) rectal suppository 650 mg(Linked Group 1) 650 mg, Rectal, THREE TIMES A DAY, First dose on Thu11/26/22 at 1400, Until Discontinued 1428 (See Alternative - Provider: Pamela Taylor RN)212 (See Alternative - Provider: Raquel Samuels RN) 0848 (See Alternative - Provider: Cary Marie RN)1440 (See Alternative - Provider: Cary Marie RN) acetaminophen (TYLENOL) tablet 1,000 mg (CANCELED)(Linked Group 2) 1,000 mg, oral, THREE TIMES A DAY, First dose on Thu11/26/22 at 0800, Until Discontinued 0756 (Given - Provider: Pamela Taylor RN)0940 (JUN Hold - Provider: Interface, Incoming Adt - Reason: Procedure)1342 (MAR Unhold - Provider: Marcos Bell, Pharm D) acetaminophen (TYLENOL) tablet 1,000 mg(Linked Group 1) 1,000 mg, oral, THREE TIMES A DAY, First dose on Thu11/26/22 at 1400, Until Discontinued 1428 (Given - Provider: Pamela Taylor RN)2123 (Given - Provider: Raquel Samuels RN) 0848 (Given - Provider: Cary Marie RN)1440 (Given - Provider: Cary Marie RN) amLODIPine (NORVASC) tablet 10 mg 10 mg, oral, DAILY, First dose on Thu11/27/22 at 1400, Until Discontinued 1443 (Given - Provid er: Cary Marie RN) aspirin enteric coated tablet 81 mg 81 mg, oral, TWICE A DAY, First dose on Thu11/27/22 at 0800, Until Discontinued 0849 (Given - Provid er: Cary Marie RN) calcium carbonate (600 mg elemental calcium) tablet 1 tablet 1 tablet, oral, DAILY, First dose on Thu11/26/22 at 1445, Until Discontinued 1629 (Given - Provider: Raquel Samuels RN) 0849 (Given - Provider: Cary Marie RN) ceFAZolin (Ancef) 1 g in sodium chloride 0.9 % 100 mL IV piggyback (COMPLETED) 1 g, Intravenous, EVERY 8 HOURS (NS), 2 doses, First dose on Thu11/26/22 at 1800, Last dose on Thu11/27/22 at 0200, Administer over 30 Minutes 1756 (New Bag - Provider: Raquel Samuels RN)1826 (Stopped - Provider: Raquel Samuels RN) 0242 (New Bag - Provider: Pratik Salvador RN) ceFAZolin (Ancef) 2 g IV syringe 2 g (COMPLETED) Intravenous, ONCE ON INDUCTION, 1 dose, Starting on Thu11/26/22 at 0921, Until Discontinued, Pre-Op, Administer over 3 Minutes 1045 (Given - Provider: David Matos APRN, WOMEN'S STUDIES PROFESSOR) enoxaparin (LOVENOX) injection 40 mg 40 mg, Subcutaneous, TWICE A DAY, First dose on Thu11/26/22 at 2000, Until Discontinued, The minimum weight for this order is 35 kg. For 1 mg/kg dose patients >190 kg, consider using an unfractionated heparin infusion. For 1.5 mg/kg dose patients >125 kg, use enoxaparin 1 mg/kg q12h per dose rounding guidelines. This medication has a Blackbox Warning. Click the formulary reference link for more information. 192 (Given - Provider: Raquel Samuels RN) 0851 (Given - Provider: Cary Marie RN) folic acid (FOLVITE) tablet 1 mg 1 mg, oral, DAILY, First dose on Thu11/26/22 at 1445, Until Discontinued 1627 (Given - Provider: Raquel Samuels RN) 0849 (Given - Provider: Cary Marie RN) ibuprofen tablet 400 mg (CANCELED) 400 mg, oral, EVERY 6 HOURS (NS), First dose on Thu11/26/22 at 0400, Until Discontinued 0940 (MAR Hold - Provider: Interface, Incoming Adt - Reason: Procedure)1000 (Automatically Held - Provider: Interface, Incoming Adt)1318 (MAR Unhold - Provider: Patricia Ball, Pharm D) 1440 (Given - Provider: Cary Marie RN) ibuprofen tablet 400 mg(Linked Group 3) 400 mg, oral, EVERY 6 HOURS (NS), 8 doses, First dose on Thu11/26/22 at 1400, Last dose on Thu11/28/22 at 0800 1322 (See Alternative - Provider: Amanda Rubio RN)1925 (Given - Provider: Raquel Samuels RN) 0240 (Given - Provider: Pratik Salvador RN)0849 (Given - Provider: Cary Marie RN)1400 (Given - Provider: Cary Marie RN) ketorolac (ToradoL) injection 15 mg(Linked Group 3) 15 mg, Intravenous, EVERY 6 HOURS (NS), 8 doses, First dose on Thu11/26/22 at 1400, Last dose on Thu11/28/22 at 0800, Maximum duration of treatment is 5 days. 1322 (Given - Provider: Amanda Rubio RN)1925 (See Alternative - Provider: Raquel Samuels RN) 0240 (See Alternative - Provider: Pratik Salvador RN)0849 (See Alternative - Provider: Cary Marie RN)1400 (See Alternative - Provider: Cary Marie RN) lidocaine 4% (Salonpas) adhesive patch, medicated 1-3 patch 1-3 patch, Transdermal, DAILY, First dose on Thu11/26/22 at 0800, Until Discontinued 0800 (Declined - Provider: Pamela Taylor RN)0940 (MAR Hold - Provider: Interface, Incoming Adt - Reason: Procedure)1412 (MAR Unhold - Provider: Interface, Incoming Adt) 0800 (Not Given - Provider: Cary Marie RN - Reason: Parent/Guardian refused - Comment: Leg has jimy wrap all around) losartan (COZAAR) tablet 25 mg 25 mg, oral, DAILY, First dose on Thu11/27/22 at 0930, Until Discontinued 0959 (Given - Provid er: Cary Marie RN) melatonin tablet 3 mg 3 mg, oral, AT BEDTIME, First dose on Thu11/26/22 at 0400, Until Discontinued 0400 (Due)0940 (JUN Hold - Provider: Interface, Incoming Adt - Reason: Procedure)1412 (JUN Unhold - Provider: Interface, Incoming Adt)2122 (Given - Provider: Raquel Samuels RN) metoprolol succinate (XL) (TOPROL XL) extended release tablet 24 HR 50 mg 50 mg, oral, DAILY, First dose on Thu11/27/22 at 0930, Until Discontinued 0959 (Given - Provid er: Cary Marie RN) multivitamin (CERTAVITE) tablet 1 tablet 1 tablet, oral, DAILY, First dose on Thu11/26/22 at 1445, Until Discontinued 1627 (Given - Provider: Raquel Samuels RN) 0849 (Given - Provider: Cary Marie RN) omeprazole (PriLOSEC) delayed release capsule 20 mg 20 mg, oral, DAILY, First dose on Thu11/26/22 at 1700, Until Discontinued 1627 (Given - Provider: Raquel Samuels RN) 0849 (Given - Provider: Cary Marie RN) rosuvastatin (CRESTOR) tablet 20 mg 20 mg, oral, DAILY, First dose on Thu11/26/22 at 1445, Until Discontinued 1627 (Given - Provider: Raquel Samuels RN) 0849 (Given - Provider: Cary Marie RN) sertraline (ZOLOFT) tablet 50 mg 50 mg, oral, DAILY, First dose on Thu11/26/22 at 1445, Until Discontinued 1627 (Given - Provider: Raquel Samuels RN) 0855 (Given - Provider: Cary Marie RN) tranexamic acid (CYKLOKAPRON) 730 mg in sodium chloride 0.9 % 100 mL IV infusion (COMPLETED) 730 mg (rounded from 726 mg = 10 mg/kg ? 72.6 kg), Intravenous, ONCE, 1 dose, On Thu11/26/22 at 1015, All Phases, Administer over 10 Minutes 1047 (New Bag - Provider: David Matos APRN, WOMEN'S STUDIES PROFESSOR) Continuous Medication Order 11/25/2022 11/26/2022 11/27/2022 lactated Ringers (LR) IV infusion (CANCELED) at 75 mL/hr, Intravenous, CONTINUOUS, Starting on Thu11/26/22 at 1230, Until Thu11/26/22 at 1412, Phase 1 1230 (New Bag - Provider: Carla Rubio, EPIFANIO) sodium chloride 0.9 % IV solution (CANCELED) at 75 mL/hr, Intravenous, CONTINUOUS, Starting on Thu11/26/22 at 1345, Until Thu11/26/22 at 1436, Post-Op 1427 (New Bag - Provider: Yusra Taylor RN) PRN Medication Order 11/25/2022 11/26/2022 11/27/2022 saline FLUSH syringe 10 mL 10 mL, Intravenous, NEEDED, Starting on Thu11/26/22 at 0355, Until Betty 11/27/22 at 2311, Line Care 0940 (JUN Hold - Provider: Interface, Incoming Adt - Reason: Procedure)1412 (JUN Unhold - Provider: Interface, Incoming Adt) bisacodyl (DULCOLAX) suppository 1 suppository 1 suppository, Rectal, DAILY NEEDED, Starting on Thu11/26/22 at 1333, Until Betty 11/27/22 at 2311, constipation, for constipation if patient unable to take oral laxative BUPivacaine 0.5%-EPINEPHrine 1:200,000 (SENSORCAINE) injection (CANCELED) INTRA-PROCEDURE NEEDED, Starting on Thu11/26/22 at 1225, Until Thu11/26/22 at 1244, Intra-Op, per procedure 1225 (Given - Provider: Sharan Donaldson PA-C) hydrALAZINE (APRESOLINE) injection 10-20 mg 10-20 mg, Intravenous, EVERY 6 HOURS NEEDED, Starting on Thu11/26/22 at 1435, Until Betty 11/27/22 at 2311, for SBP GREATER THAN, 160mmHg. HYDROmorphone (DILAUDID) syringe 0.2-0.4 mg (CANCELED) 0.2-0.4 mg, Intravenous, EVERY 3 HOURS NEEDED, Starting on Thu11/26/22 at 0355, Until Thu11/26/22 at 1343, for pain while strict NPO, may give in addition to non-opioid analgesics when ordered 0414 (Given - Provider: Coral Rosario RN)0940 (JUN Hold - Provider: Interface, Incoming Adt - Reason: Procedure)1343 (JUN Unhold - Provider: Marcos Bell, Pharm D) HYDROmorphone (DILAUDID) syringe 0.2-0.4 mg (CANCELED) 0.2-0.4 mg, Intravenous, EVERY 5 MINUTES NEEDED, 5 doses, Starting on Thu11/26/22 at 1216, Until Thu11/26/22 at 1343, Phase 1, POST-ACUTE PAIN MANAGEMENT 1310 (Given - Provider: Amanda Rubio RN)1315 (Given - Provider: Amanda Rubio RN)1323 (Given - Provider: Amanda Rubio RN)1328 (Given - Provider: Amanda Rubio RN) HYDROmorphone (DILAUDID) syringe 0.2-0.4 mg 0.2-0.4 mg, Intravenous, EVERY 4 HOURS NEEDED, Starting on Thu11/26/22 at 1333, Until Betty 11/27/22 at 2311, Pain, when NOT taking PO hydrOXYzine HCl (VISTARIL) injection 25 mg (CANCELED)(Linked Group 4) 25 mg, IntraMUSCULAR, ONCE NEEDED, MAY REPEAT X 1, 2 doses, Starting on Thu11/26/22 at 1216, Until Thu11/26/22 at 1412, Phase 1/2, for augmentation of narcotic based analgesia while in recovery area and unable to take PO. Not to be given within the past 6 hours. 1306 (Given - Provider: Amanda Rubio RN) labetaloL (NORMODYNE) injection 10-20 mg 10-20 mg, Intravenous, EVERY 4 HOURS NEEDED, Starting on Thu11/26/22 at 1436, Until Betty 11/27/22 at 2311, SBP >160mmHg. HOLD for HR <60bpm. methocarbamoL (ROBAXIN) tablet 250 mg(Linked Group 5) 250 mg, oral, EVERY 6 HOURS NEEDED, Starting on Thu11/26/22 at 0355, Until Betty 11/27/22 at 2311, muscle spasm, muscle pain 0940 ([facility] Hold - Provider: Interface, Incoming Adt - Reason: Procedure)141 ([facility] Unhold - Provider: Interface, Incoming Adt) methocarbamoL (ROBAXIN) tablet 500 mg(Linked Group 5) 500 mg, oral, EVERY 6 HOURS NEEDED, Starting on Thu11/26/22 at 0355, Until Betty 11/27/22 at 2311, muscle spasm, muscle pain 0940 ([facility] Hold - Provider: Interface, Incoming Adt - Reason: Procedure)141 ([facility] Unhold - Provider: Interface, Incoming Adt) naloxone (NARCAN) injection 0.1 mg 0.1 mg, Intravenous, EVERY 1 MINUTE PRN, Starting on Thu11/26/22 at 1333, Until Betty 11/27/22 at 2311, Opiate Reversal ondansetron (ZOFRAN) injection 4 mg 4 mg, Intravenous, EVERY 8 HOURS NEEDED, Starting on Thu11/26/22 at 1333, Until Betty 11/27/22 at 2311, nausea & vomiting, After transfer out of recovery oxyCODONE (immediate release) (ROXICODONE) tablet 2.5-5 mg 2.5-5 mg, oral, EVERY 4 HOURS NEEDED, Starting on Thu11/26/22 at 1333, Until Betty 11/27/22 at 2311, Pain, when taking PO 1627 (Given - Provider: Raquel Samuels RN) 1327 (Given - Provider: Cary Marie RN) oxyCODONE (immediate release) (ROXICODONE) tablet 5 mg (CANCELED)(Linked Group 6) 5 mg, oral, NEEDED, MAY REPEAT X1, 2 doses, Starting on Thu11/26/22 at 1216, Until Thu11/26/22 at 1412, Phase 1/2, Pain, when taking PO, pain while in recovery area 1319 (Given - Provider: Amanda Rubio RN) senna-docusate (SENNA-S) tablet 1-2 tablet 1-2 tablet, oral, TWICE A DAY NEEDED, Starting on Thu11/26/22 at 1333, Until Thu11/27/22 at 2311, constipation Linked Groups Order Group 1: acetaminophen (TYLENOL) tablet 1,000 mgJump to med 1,000 mg, oral, THREE TIMES A DAY, First dose on Thu11/26/22 at 1400, Until Discontinued Or acetaminophen (TYLENOL) rectal suppository 650 mgJump to med 650 mg, Rectal, THREE TIMES A DAY, First dose on Thu11/26/22 at 1400, Until Discontinued Group 2: acetaminophen (TYLENOL) tablet 1,000 mg (CANCELED)Jump to med 1,000 mg, oral, THREE TIMES A DAY, First dose on Thu11/26/22 at 0800, Until Discontinued Or acetaminophen (TYLENOL) rectal suppository 650 mg (CANCELED) 650 mg, Rectal, THREE TIMES A DAY, First dose on Thu11/26/22 at 0800, Until Discontinued Group 3: ketorolac (ToradoL) injection 15 mgJump to med 15 mg, Intravenous, EVERY 6 HOURS (NS), 8 doses, First dose on Thu11/26/22 at 1400, Last dose on Thu11/28/22 at 0800, Maximum duration of treatment is 5 days. Or ibuprofen tablet 400 mgJump to med 400 mg, oral, EVERY 6 HOURS (NS), 8 doses, First dose on Thu11/26/22 at 1400, Last dose on Thu11/28/22 at 0800 Group 4: hydrOXYzine pamoate (Vistaril) capsule 25 mg (CANCELED) 25 mg, oral, ONCE NEEDED, MAY REPEAT X 1, 2 doses, Starting on Thu11/26/22 at 1216, Until Thu11/26/22 at 1412, Phase 1/2, for augmentation of narcotic based analgesia while in recovery area. Not to be used if given within the past 6 hours. Or hydrOXYzine HCl (VISTARIL) injection 25 mg (CANCELED)Jump to med 25 mg, IntraMUSCULAR, ONCE NEEDED, MAY REPEAT X 1, 2 doses, Starting on Thu11/26/22 at 1216, Until Thu11/26/22 at 1412, Phase 1/2, for augmentation of narcotic based analgesia while in recovery area and unable to take PO. Not to be given within the past 6 hours. Group 5: methocarbamoL (ROBAXIN) tablet 250 mgJump to med 250 mg, oral, EVERY 6 HOURS NEEDED, Starting on Thu11/26/22 at 0355, Until Betty 11/27/22 at 2311, muscle spasm, muscle pain Or methocarbamoL (ROBAXIN) tablet 500 mgJump to med 500 mg, oral, EVERY 6 HOURS NEEDED, Starting on Thu11/26/22 at 0355, Until Betty 11/27/22 at 2311, muscle spasm, muscle pain Group 6: oxyCODONE (immediate release) (ROXICODONE) tablet 5 mg (CANCELED)Jump to med 5 mg, oral, NEEDED, MAY REPEAT X1, 2 doses, Starting on Thu11/26/22 at 1216, Until Thu11/26/22 at 1412, Phase 1/2, Pain, when taking PO, pain while in recovery area Or oxyCODONE-acetaminophen (PERCOCET) 5-325 mg tablet 1 tablet (CANCELED) 1 tablet, oral, NEEDED, MAY REPEAT X1, 2 doses, Starting on Thu11/26/22 at 1216, Until Thu11/26/22 at 1412, Phase 1/2, Pain, when taking PO, pain while in recovery area Or HYDROcodone-acetaminophen (NORCO) 5-325 mg tablet 1 tablet (CANCELED) 1 tablet, oral, NEEDED, MAY REPEAT X1, 2 doses, Starting on Thu11/26/22 at 1216, Until Thu11/26/22 at 1412, Phase 1/2, Pain, when taking PO, pain while in recovery area documented in this encounter Care Teams Credit Portfolio Advisor Relationship Specialty Start Date End Date [facility] [address] [place] [address] PCP - Primary Care Clinic 11/26/22 , Not Listed no address PCP - General Internal Medicine 11/26/22 documented as of this encounter
--- OUTSIDE RECORDS SUMMARY | 2023-05-07 15:55 | XMS_ITS ---
Author Name Unknown Organization [facility] Address [address] [place] [address] Care Team Providers Care Business Information Manager Name Role Phone [facility]- Vielka vailable Md, Not Listed Primary Care Provider Unavailabl e Transitional Care Management Status:Enrolled (Active) Start date:11/27/2022 Enrollment date:11/28/2022 Related social determinants of health:Social Connections, Alcohol Use, Tobacco Use, Financial Resource Strain, Depression, Stress, Physical Activity, Transportation Needs Overview Transitional Care Management (TCM) is a [facility] Program designed to decrease risk and increase continuity of care for patients after discharge. Continued Care and Services Coordination
--- OUTSIDE RECORDS SUMMARY | 2023-05-07 15:55 | XMS_ITS | Encounter Summary ---
Author Name Unknown Organization [facility] Address [address] [place] [address] Care Team Providers Care Hr Clerk Name Role Phone [facility]- Vielka vailable Md, Not Listed Primary Care Provider Unavailabl e Reason for Visit * Reason Comments Trauma Fell - ankle and tib /fib fx * Inpatient Admission (Routine) Specialty Diagnoses / Procedures Referred By Fide ulrich Referred To Contact Diagnoses Fall down stairs, initial encounter Referral ID Status Reason Start Date Expiration Date Visits Re quested Visits Authorized [id number] 1 1 Encounter Details Date Type Department Care Team (Late st Contact Info) Description 11/26/2022 9:55 AM CDT - 11/26/2022 12:25 PM CDT Surgery [facility] Operating Room [address] [place] [address] Harsh Kumari MD [address] [address] INTRAMEDULLARY TIBIA LEFT ORIF Surgery Details Date/Time Status Location OR Service Patient Class Case Class Case Type Trauma Case? 11/26/22 9:55 AM Posted NMR ORS 14 Orthopedic Inpatient Panel 1 Procedure LRB Anes Op Region Wound Class Comments INTRAMEDULLARY TIBIA LEFT ORIF Left General Leg, lowe r Clean (I) Surgeon Surgeon Role Service Panel Harsh Kumari MD Primary Orthopedic 1 documented in this encounter Social History Tobacco Use Types Packs/Day Years [...] Sign Reading Time Taken Comments Blood Pressure 116/68 11/26/2022 9:41 AM CDT Pulse 69 11/26/2022 9:41 AM CDT Temperature 37.3 ??C (99.1 ??F) 11/26/2022 9:41 AM CD T Respiratory Rate 15 11/26/2022 9:41 AM CDT Oxygen Saturation 95% 11/26/2022 9:41 AM CDT Inhaled Oxygen Concentration - - Weight 72.6 kg (160 lb) 11/26/2022 3:59 AM CDT Height 162.6 cm (5' 4) 11/26/2022 3:59 AM CDT Body Mass Index 27.36 11/26/2022 3:59 AM CDT documented in this encounter Discharge Summaries * Jazmín Xiong, ERASMO, WIRE FRAME DIPPER - 11/27/2022 9:14 AM CDT HOSPITAL DISCHARGE [...] Your Medications These medications were sent to [facility] [address] [facility] [address] Hours: Mon-Fri: 7:30AM-6PM / Sat: 9AM-3PM / [...] follow-up provider: . [facility] ([facility] the [facility] from the hospital emergency room) Appointment on 12/10 at 1:35 PM [address] , [address] [facility] [address] Please call [phone] with any questions Surgery, [facility] General And Trauma Specify time frame for [...] to contact our Trauma Surgery Clinic at [phone]. PENDING TEST RESULTS: None. HOSPITAL COURSE: Darcy Camejo is a 67 y.o. female who presented to [facility] on 11/26 with a closed left tib/fib [...] ECHO (06/09/22) with LVEF60% 2. HTN: continued TATTOO AND BODY ARTIST metoprolol and losartan 3. Reynaud's syndrome, CREST: continue TATTOO AND BODY ARTIST amLODipine, celecoxib, no NSAIDs prescribed at time of discharge. Methotrexate not due this time of admission. 4. Depression/anxiety: continued TATTOO AND BODY ARTIST sertraline 5. GERD: continued TATTOO AND BODY ARTIST Prilosec PROCEDURES: OR 11/26/22 (Dr. Harsh Kumari) [...] Over 30 minutes. Jazmín Xiong DNP, AGACNP, CLIENT SPECIALIST Department of Trauma, Emergency, General Surgery, and [...] with PT and OT this afternoon, Pt demond be d/c later today after BP recheck [...] with Dr. Kumari on 12/10 at the [facility] clinic Continue to follow Subjective/Objective Sitting in recliner, pain under control, spouse at bedside Pain well controlled with tylenol, ibuprofen, oxycodone CMS/Neurovasc intact to LLE Splint to LLE- c/d/I Dayna Crenshaw PA-C Orthopedic Trauma Pager: [phone] * Pratik Salvador RN - 11/27/2022 4:08 AM CDT Med-Surg Care Progression Note Type: Shift to shift summary Length of stay: 1 days Code Status: Full Code Primary Problem: Fell on stairs at home, fx tibia/fibula Summary:POD#1 for IMN of Left tib/fib, in splint with JIMY wrap. LLE NWB.. F- Feeding & Fluids: Tolerating regular [...] in splint with JIMY wrap. LLE NWB. on post-op vitals completed -still requiring [...] wrap. LLE NWB. Returned from surg in [id number] hour, on post-op vitals - Bps trending [...] surgery, LLE non weight bearing U- Urologic/bowel: Purewick G- Glycemic Control: Not applicable T- Treatment: pain control. Ortho consult. I- Invasive Devices: PIV x 1 D- Discharge: Lives with in [place], daughter visiting is RN * Jazmín Xiong APRN, ALON - 11/26/2022 8:02 AM CDT BRIEF TRAUMA TERTIARY EXAM NOTE LOS: 0 days Patient seen on 11/26/2022 at 10:57 AM. CC/HPI: Fall down stairs, initial encounter INTERVAL HISTORY: Admitted overnight from [place] with L tib/fib fx. Anticipate OR today with Ortho. Pain well-controlled. No paresthesias. Isolated injury. No other complaints/concerns. Awaiting med rec. TATTOO AND BODY ARTIST MEDICATIONS: Awaiting med rec CURRENT MEDS: Current [...] on guard, watchful, or easily startled? no Fabens numb or detached from people, activities, or your surroundings? no Fabens guilty or unable to stop blaming yourself [...] a 67 y.o. female who presented to [facility] on 11/26 with a closed left tib/fib fracture. She was admitted to the trauma service with orthopedic consultation. Fall from standing - Mechanical in nature, no further work-up indicated - Tertiary exam completed without new injury identified - Medication reconciliation pending - Will resume essential TATTOO AND BODY ARTIST medications PRN - PT/OT - Pending - [...] N/A. Bowel Medications: Bowel regimen ordered. LBM: TATTOO AND BODY ARTIST. Hayes: N/A. DVT Prophylaxis: Holding pre-op per ortho. Re-evaluate post-op. Restraints: N/A. Wounds/Skin Care/Floyd/Sutures: Local skin cares per nursing staff. Pressure [...] joint decision making. Jazmín Xiong, SHERRIE, AGACNP, CLIENT SPECIALIST Department of Trauma, Emergency, General Surgery, and Surgical Critical Care Electronically signed by Jazmín Xiong, PREFABRICATED HOUSES TRIMMER, WIRE FRAME DIPPER at 11/26/2022 11:15 AM CDT * Coral Rosario RN - 11/26/2022 6:52 AM CDT Med-Surg Care Progression Note Type: Admission summary arrived 4am Length of stay: 0 days Code Status: Full Code Primary Problem: left tib fib fx after mistepped a stair Hx of Summary: w/pmhx arthritis, CREST syndrome . Daughter reports hx of acsending aneurysm and wants OR to be aware of her Raynards diagnoses. Transferred from [place]. Has been NPO. Puewick placed. Dilaudid x [...] x 1 D- Discharge: Lives with in [place] * Jazmín Xiong APRN, WIRE FRAME DIPPER - 11/26/2022 3:09 AM CDT TRAUMA PROBLEM LIST/SUMMARY Admit Date: 11/26/2022 No past medical history on file. INJURIES Principal Problem: Fall down stairs, initial encounter Active Problems: Tibia/fibula fracture, left, closed, initial encounter PROCEDURES AND EVENTS 11/26 Trauma floor Ortho NPO OR Tertiary Exam: done 11/26 Screening Dates: AUDIT-C: done 11/26 ASD: done 11/26 Education Folder: done 11/26 Sutures & Ulster: Incidental Findings: Resolved Problems: Discharge follow up [...] Evaluation: Time Consulted 02:14 Arrival/Pre-Notification: Referring Hospital [facility] CHIEF COMPLAINT: ankle pain HPI: Darcy [...] noted in the HPI/Subjective. Last Oral Intake: 1830 Last Tetanus: Unknown PAST MEDICAL HISTORY: CREST [...] Motor grossly normal, Speech: normal, Sensation intact /PROCESS DESIGNER: deferred Psych: appropriate affect Laboratory Data: No [...] consult H/O Crest Syndrome H/O arthritis - TATTOO AND BODY ARTIST methotrexate, celoxib H/O Hypertension H/O Hyperlipidemia - TATTOO AND BODY ARTIST amlodipine, losartan-hctz, metoprolol XL, rosuvastatin H/O GERD - TATTOO AND BODY ARTIST prilosec Surgical Optimization: Based on history and [...] DVT Prophylaxis: mechanical Ulcer Prophylaxis: PPI - TATTOO AND BODY ARTIST med Restraints: Not indicated Pain Management:: Other multimodal Sedation: none Warming Techniques: passive Family Conference: discussed with family Update Called To: [facility] Consult(s) Ortho - non-emergent 35 [...] needs OT Plan Comments: Pt admitted to [facility] on 11/26/22 following a fall down the [...] is independent with: All ADLs/IADLs 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 FUNCTIONAL MOBILITY Functional [...] Crutches History of falls: denies, other than TATTOO AND BODY ARTIST Pain Patient complained of 5/10 pain in [...] today to educate pt on stair navigation [facility] AM-PAC 6-Clicks Turning over in bed (including [...] CONSULTATION NOTE PATIENT NAME: Darcy Camejo ADDRESS: [address] [place] [address] AGE: 67 y.o. SEX: female Admission Date/Time: [...] to follow Dayna Crenshaw PA-C Ortho-trauma amion: [phone] documented in this encounter Nursing Notes * Cary Marie RN - 11/27/2022 2:48 PM CDT Problem: Falls/Injury-Risk of Goal: Absence of Falls/Injury 11/27/2022 1448 by Cary Marie, EPIFANIO Outcome: Completed 11/27/2022 1447 by Cary Marie RN Outcome: Met this shift Problem: Discharge Planning Goal: Establish appropriate post-hospitalization placement 11/27/20221447 by Cary Marie RN Outcome: Completed 11/27/20221446 by Cary Marie RN Outcome: Met this shift Problem: Communication Goal: Demonstrates/exhibits ability to communicate needs effectively 11/27/20221447 by Cary Marie RN Outcome: Completed 11/27/20221446 by Cary Marie RN Outcome: Met this shift Problem: SAFETY Goal: *Communicates safety needs 11/27/20221447 by Cary Marie RN Outcome: Completed 11/27/20221446 by Cary Marie RN Outcome: Met this shift Problem: Pain Goal: Exhibits reduction in pain to a level of acceptable comfort 11/27/20221447 by Cary Marie RN Outcome: Completed 11/27/20221446 by Cary Marie RN Outcome: Met this shift Problem: Pressure Injury - Risk of Goal: Absence of pressure injury 11/27/20221447 by Cary Marie RN Outcome: Completed 11/27/20221446 by Cary Marie RN Outcome: Met this shift Problem: Anticoagulation, pharmacologic therapy Goal: Adheres to therapeutic regimen 11/27/20221447 by Cary Marie RN Outcome: Completed 11/27/20221446 by Cary Marie RN Outcome: Met this shift Problem: Mobility - Impaired Goal: Demonstrates ability to perform physical activity independently or with assistive devices as needed 11/27/20221447 by Cary Marie, EPIFANIO Outcome: Completed 11/27/20221446 by Cary Marie RN Outcome: Met this shift Goal: Verbalizes an understanding of immobility risks and complications 11/27/20221447 by Cary Marie RN Outcome: Completed [...] Crutches History of falls: denies, other than TATTOO AND BODY ARTIST Pain Patient complained of 5/10 pain in [...] maintain NWB and perform in seated position. [facility] AM-PAC 6-Clicks Turning over in bed (including [...] will continue to follow. ROSE Linda Pager [phone] documented in this encounter OR Notes * OR Surgeon - Harsh Kumari MD - 11/26/2022 10:55 AM CDT [facility] Orthopedic Operative Note Intramedullary Nailing Tibial Shaft [...] radiograph left ankle SURGEON: Harsh Kumari MD INDUSTRIAL ARTS TEACHER: Sharan Donaldson PA-C, whose assistance was required [...] When that was complete, we obtained perfect [place] imaging distally and drilled for and placed [...] out of plaster nonweightbearing Harsh Kumari MD [facility] documented in this encounter ED Notes [...] External Notes: I reviewed the note from [facility] from 11/25/22. MEDICATIONS: No current facility-administered medications [...] 0.2-0.4 mg (0.4 mg Intravenous Given 11/26/22 041) Assessments: Notable Events: Independent Interpretation (X-rays, CTs, [...] is accurate. Pura Donovan MD 11/26/22 11/26/2022 [facility] EMERGENCY DEPARTMENT * Marcos Stern RN - [...] managed as an inpatient. Expected Management: Eval/treat Unit Operator Notified: No Method of arrival: Ground Domenico Arcos MD documented in this encounter Miscellaneous Notes * Med Reconciliation - Joselyn Holman, Pharm D - 11/26/2022 2:29 PM CDT PHARMACY MEDICATION RECONCILIATION NOTE MEDICATION RECONCILIATION on admission by pharmacy has been completed. Prior to admission medications were reviewed with patient home medications list provided by [facility] recent fill history. The TATTOO AND BODY ARTIST medication list has been updated and reflected in the chart below. Please use the TATTOO AND BODY ARTIST medication section for ordering home doses during [...] Medications: None This patient obtains medications from [id number] - [place], [place] - [address] [facility]. Thank you for the opportunity to participate in the care of this patient. Phone #:[phone] Time spent reconciling meds:8 min Location: face to face encounter Joselyn Carrion PharmD, [facility], 11/26/2022 2:30 PM documented in this encounter [...] 145 mmol/L ATELLICA ANALYZER 11/27/2022 7:59 AM CDT [facility] Potassium 3.8 3.4 - 5.1 mmol/L ATELLICA ANALYZER 11/27/2022 7:59 AM CDT [facility] Chloride 107 98 - 108 mmol/L ATELLICA ANALYZER 11/27/2022 7:59 AM CDT [facility] Carbon Dioxide 27 20 - 31 mmol/L ATELLICA ANALYZER 11/27/2022 7:59 AM CDT [facility] BUN (Urea Nitro) 9 9 - 23 mg/dL ATELLICA ANALYZER 11/27/2022 7:59 AM CDT [facility] Creatinine 0.65 0.55 - 1.02 mg/dL ATELLICA ANALYZER 11/27/2022 7:59 AM CDT [facility] Est GFR (CKD-EPI) >60.00 >60.00 mL/min/1. 73m2 ATELLICA ANALYZER 11/27/2022 7:59 AM CDT [facility] Comment:Calculation based on the Chronic Kidney Disease Epidemiology Collaboration (CKD-EPI) equation refit without adjustment for race. Glucose 107(H) 74 - 106 mg/dL ATELLICA ANALYZER 11/27/2022 7:59 AM CDT [facility] Calcium, Serum 9.5 8.7 - 10.4 mg/dL ATELLICA ANALYZER 11/27/2022 7:59 AM CDT [facility] Anion Gap 6.0 0.0 - 15.0 mmol/L ATELLICA ANALYZER 11/27/2022 7:59 AM CDT [facility] Blood 11/27/2022 6:58 AM CDT 11/27/2022 7:30 AM CDT Ping Mcpherson MD CHEMISTRY ORDERAB LE [facility] [address] [address] * (ABNORMAL) CBC (HGB,HCT,WBC,RBC,Platelet) (11/27/2022 6:58 AM CDT) Only the most recent of2 resultswithin the time period is included. WBC 8.6 4.3 - 10.8 K/uL 11/27/2022 7:45 AM T [facility] RBC 3.16(L) 4.20 - 5.40 M/uL 11/27/2022 7:45 AM T [facility] Hemoglobin 10.5(L) 12.0 - 16.0 gm/dL 11/27/2022 7:45 AM T [facility] Hematocrit 33.0(L) 36.0 - 48.0 % 11/27/2022 7:45 AM T [facility] MCV 104(H) 80 - 100 fL 11/27/2022 7:45 AM T [facility] MCH 33 27 - 33 pg 11/27/2022 7:45 AM T [facility] MCHC 32(L) 33 - 36 gm/dL 11/27/2022 7:45 AM [facility] RDW 14.1 11.5 - 14.5 % 11/27/2022 7:45 AM T [facility] Platelet Count 210 150 - 400 K/UL 11/27/2022 7:45 AM T [facility] MPV 9.3 6.5 - 12 fL 11/27/2022 7:45 AM T [facility] Blood 11/27/2022 6:58 AM CDT 11/27/2022 7:31 AM CDT Ping Mcpherson MD HEMATOLOGY ORDERA BLE [facility] [address] [address] * XR FLUORO MANUAL STRESS (11/26/2022 12:14 [...] REPORT SIGNED BY DR. Fahad Mosqueda Harsh Kumari MD XRAY ORDERABLE * Protime/INR (11/26/2022 5:27 AM CDT) Only the most recent of2 resultswithin the time period is included. INR 1.0 0.9 - 1.2 11/26/2022 6:27 AM CDT [facility] Blood 11/26/2022 5:27 AM CDT 11/26/2022 6:07 AM CDT Ping Mcpherson MD COAGULATION ORDER ABLE [facility] [address] [place] [address] * ABORh Confirm (Lab Use Only) (11/26/2022 5:25 AM CDT) Group and Rh AB Positive 11/26/2022 6:33 AM CDT [facility] Blood 11/26/2022 5:25 AM CDT 11/26/2022 6:05 AM CDT Ping Mcpherson MD BLOOD BANK ORDERA BLE Performing Organization Address [facility] de Phone Number [facility] [address] [place] [id number] [place] [address] * Type & Screen (11/26/2022 3:06 AM CDT) Group and Rh AB Positive 11/26/2022 4:53 AM CDT [facility] Antibody Screen Negative 11/26/2022 4:53 AM CDT [facility] Blood 11/26/2022 3:06 AM CDT 11/26/2022 3:24 AM CDT Aspen Santoyo PA-C BLOOD BANK ORDERABLE Performing Organization Address [facility] de Phone Number [id number] [place] [address] * EKG (11/26/2022 3:04 AM CDT) Pathologist [facility] EKG [facility] Comment: ?[facility] ? Test Date: ?2022-11-26 Pat Name: ? DARCY HEMAN ?Department: ?? ED ?Room: ? ED22 Gender: ? F ?Manager Club: ?? [id number] : ?1955 ? Requested By: PURA DONOVAN MD Order Number: [id number] ?Reading MD: ?? Pura Donovan MD ? Measurements Intervals ?[place] ? Rate: ? 68 ? P: ?39 NM: ? 166 ?QRS: ?13 QRSD: ? 86 ? T: ?24 QT: ? 401 ? QTc: ?428 ? Interpretive Statements Indication for EKG: ??Preop Rhythm: ??Normal sinus rhythm. ?? Morphology: ??No new ST/T changes suggestive of ischemia. Intervals: ??Normal intervals. [place]: ??Normal axis. No previous ECG available for comparison Electronically Signed On 11-26-2022 3:10:00 CDT by Pura Donovan MD 11/26/2022 3:04 AM CDT Pura Donovan MD EKG ORDERABLE Performing Organization Address City/State/[facility] Co de Phone Number Emile HUERTAS [address] [facility] [place] [address] * XR OUTSIDE LOWER EXTREMITY STUDY (11/26/2022 2:30 AM CDT) Only the most recent of4 resultswithin the time period is included. Study Outside XRAY ORDERABLE documented in this encounter Visit Diagnoses Diagnosis Fall down stairs, initial encounter- Primary Closed trimalleolar fracture of left ankle, initial encounter Tibia/fibula fracture, left, closed, initial encounter Unspecified fracture of shaft of left tibia, initial encounter for closed fracture Unspecified fracture of shaft of left fibula, initial encounter for closed fracture documented in this encounter Admitting Diagnoses Diagnosis [...] Given 11/27/2022 8:49 AM CDT 81 mg BUPivacaine 0.5%-EPINEPHrine 1:200,000 (SENSORCAINE) injection INTRA-PROCEDURE NEEDED, Starting on Thu11/26/22 at 1225, Until Thu11/26/22 at 1244, Intra-Op, per procedure Given 11/26/2022 12:25 PM CDT 30 mL Procedural calcium carbonate (600 mg elemental calcium) tablet 1 tablet 1 tablet, oral, DAILY, First dose on Thu11/26/22 at 1445, Until Discontinued Given 11/27/2022 8:49 AM CDT 1 tablet Given 11/26/2022 4:29 PM CDT 1 tablet enoxaparin (LOVENOX) injection 40 mg 40 mg, [...] Given 11/26/2022 4:27 PM CDT 1 mg ibuprofen tablet 400 mg 400 mg, [...] Given 11/26/2022 1:22 PM CDT 15 mg losartan (COZAAR) tablet 25 mg 25 mg, [...] Thu11/26/22 at 1333, Until Thu11/27/22 at 2311, Pain, when taking PO Given 11/27/2022 1:27 PM CDT 5 mg Given 11/26/2022 4:27 PM CDT 5 mg rosuvastatin (CRESTOR) tablet [...] Given 11/26/2022 4:27 PM CDT 50 mg documented in this encounter Active and Recently [...] 1428 (See Alternative - Provider: Pamela Taylor RN)2123 (See Alternative - Provider: Raquel Samuels RN) 0848 (See Alternative - Provider: Cary Marie RN)1440 (See Alternative - Provider: Cary Marie RN) acetaminophen (TYLENOL) tablet 1,000 mg (CANCELED)(Linked Group 2) 1,000 mg, oral, THREE TIMES A DAY, First dose on Thu11/26/22 at 0800, Until Discontinued 0756 (Given - Provider: Pamela Taylor RN)0940 (MAR Hold - Provider: Interface, Incoming Adt - Reason: Procedure)1342 (MAR Unhold - Provider: Marcos Bell, Pharm D) acetaminophen (TYLENOL) tablet 1,000 mg(Linked Group 1) 1,000 mg, oral, THREE TIMES A DAY, First dose on Thu11/26/22 at 1400, Until Discontinued 1428 (Given - Provider: Pamela Taylor RN)212 (Given - Provider: Raquel Samuels RN) 0848 [...] Minutes 1045 (Given - Provider: David Matos PREFABRICATED HOUSES TRIMMER, GENERAL PRACTICE) enoxaparin (LOVENOX) injection 40 mg 40 mg, [...] the formulary reference link for more information. 1925 (Given - Provider: Raquel Samuels RN) 0851 [...] Marie RN)1400 (See Alternative - Provider: Cary Maire RN) lidocaine 4% (Salonpas) adhesive patch, medicated 1-3 patch 1-3 patch, Transdermal, DAILY, First dose on Thu11/26/22 at 0800, Until Discontinued 0800 (Declined - Provider: Pamela Taylor RN)0940 (JUN Hold [...] Thu11/26/22 at 0400, Until Discontinued 0400 (Due)0940 (MAR Hold - Provider: Interface, Incoming Adt - Reason: Procedure)1412 (MAR Unhold - Provider: Interface, Incoming Adt)2122 (Given [...] (New Bag - Provider: David Matos APRN, GENERAL PRACTICE) Continuous Medication Order 11/25/2022 11/26/2022 11/27/2022 lactated Ringers (LR) IV infusion (CANCELED) at 75 mL/hr, Intravenous, CONTINUOUS, Starting on Thu11/26/22 at 1230, Until Thu11/26/22 at 1412, Phase 1 1230 (New Bag - Provider: Carla Rubio RN) sodium chloride 0.9 % IV solution (CANCELED) at 75 mL/hr, Intravenous, CONTINUOUS, Starting on Thu11/26/22 at 1345, Until Thu11/26/22 at 1436, Post-Op 1427 (New Bag - Provider: Yusra Taylor RN) PRN Medication Order 11/25/2022 11/26/2022 11/27/2022 saline FLUSH syringe 10 mL 10 mL, Intravenous, NEEDED, Starting on Thu11/26/22 at 0355, Until Betty 11/27/22 at 2311, Line Care 0940 (MAR Hold - Provider: Interface, Incoming Adt - Reason: Procedure)1412 (MAR Unhold - Provider: Interface, Incoming Adt) bisacodyl [...] 0414 (Given - Provider: Coral Rosario RN)0940 (MAR Hold - Provider: Interface, Incoming Adt - Reason: Procedure)1343 ([facility] Unhold - Provider: Marcos Bell, Pharm D) [...] at 2311, muscle spasm, muscle pain 0940 (MAR Hold - Provider: Interface, Incoming Adt - Reason: Procedure)1412 (MAR Unhold - Provider: Interface, Incoming Adt) methocarbamoL (ROBAXIN) tablet 500 mg(Linked Group 5) 500 mg, oral, EVERY 6 HOURS NEEDED, Starting on Thu11/26/22 at 0355, Until Betty 11/27/22 at 2311, muscle spasm, muscle pain 0940 (MAR Hold - Provider: Interface, Incoming Adt - Reason: Procedure)1412 (MAR Unhold - Provider: Interface, Incoming Adt) naloxone [...] at 1333, Until Betty 11/27/22 at 2311, constipation Linked Groups Order Group [...] area documented in this encounter Care Teams Hr Clerk Relationship Specialty Start Date End Date [facility]- [address] [place] [address] PCP - Primary Care Clinic 11/26/22 , Not Listed no address PCP - General Internal Medicine 11/26/22 documented as of this encounter
--- OUTSIDE RECORDS SUMMARY | 2023-05-07 15:55 | XMS_ITS | Referral Summary ---
Author Name Unknown Organization [facility] Address [address] [place] [address] Care Team Providers Care Senior Quality Methods Specialist Name Role Phone [facility]- Vielka vailable Md, Not Listed Primary [...] 11/26/2022 3:59 AM CDT Plan of Treatment Not on file Medical Devices Implanted Type Area Strike Plate Attacher Device Identifier Shelf Expiration Date Model / Serial / Lot Nail 9mm 300mm Tib Tn Adv Rt - [id number] Implanted:Qty: 1 on 11/26/2022 by Harsh Kumari MD at [facility] Nail Left: Tibia [employer] 09/17/2032 04.043.120 S / / [id number] Pltsynt-Clvr 04/22/92/8h 241.381 - [id number] Implanted:Qty: 1 on 11/26/2022 by Harsh Kumari MD at [facility] Plate Left: Tibia [employer] 241.381 / / Scrsyn Cnc F/Th4.0/16 206.016 - [id number] Implanted:Qty: 2 on 11/26/2022 by Harsh Kumari MD at [facility] Screw/Anch or Left: Tibia [employer]ynthes 206.016 / / Advance Directives For more information, please contact: [phone] Latest Code Status on File Code Status Date Activated Date Inactivated Comments Full Code 11/26/2022 3:55 AM 11/27/2022 11:16 PM Question Answer Comments How was code status determined? Patient Care Teams Senior Quality Methods Specialist Relationship Specialty Start Date End Date [facility]- [address] [place] [address] PCP - Primary Care Clinic 11/26/22 , Not Listed no address PCP - General Internal Medicine 11/26/22
== END 2023-05-01 09:01 | disposition home or self-care (01) ==
LOC: NFLDREF 05-07 15:52
PROVIDERS: PCP Physician Assistant Medical; Referring Provider Physician Assistant Medical; Visit Provider Emergency Medicine
DX: R73.01 Impaired fasting glucose (principal); R71.8 Other abnormality of red blood cells; E78.5 Hyperlipidemia, unspecified
CPT/HCPCS: 80061; 82607; 82746; 82947

== ENCOUNTER 2023-05-13 10:57 | Outpatient (CLI) | payer MEDICARE, BC, SELFPAY ==
--- OUTSIDE RECORDS SUMMARY | 2023-05-18 02:53 | XMS_ITS | Encounter Summary ---
Author Name Unknown Organization [facility] Address [address] [place] [address] Care Team Providers Care Distance Learning Technician Name Role Phone Greg Bettencourt MD Primary Care Provider [phone] [phone] Encounter Details Date Type Department Care Team Description 02/16/2023 12:30 PM CDT Lab Visit [facility] [address] [place] [address] Inflammatory polyarthropathy (HRC) Social History Tobacco Use [...] Department Care Team Description 05/27/2023 9:45 AM COMPANY PILOT Appointment [facility] [address] [place] [address] Hans Gasca MD [address] [place] [address] [id number] documented as of this encounter Procedures Procedure [...] 3.5 - 10.5 x10(9)/L 02/16/2023 12:36 PM [facility] RBC 3.57(L) 3.90 - 5.03 x10(12)/L 02/16/2023 12:36 PM [facility] Hemoglobin 12.3 12.0 - 15.5 g/dL 02/16/2023 12:36 PM [facility] HCT 36.7 34.9 - 44.5 % 02/16/2023 12:36 PM [facility] MCV 102.8(H) 80.0 - 100.0 fL 02/16/2023 12:36 PM [facility] MCH 34.5(H) 27.6 - 33.3 pg 02/16/2023 12:36 PM [facility] MCHC 33.5 31.5 - 35.2 g/dL 02/16/2023 12:36 PM [facility] RDW 13.2 11.9 - 15.5 % 02/16/2023 12:36 PM [facility] Platelets 236 150 - 450 x10(9)/L 02/16/2023 12:36 PM [facility] Automated NRBC 0 <=0 /100 WBC 02/16/2023 12:36 PM [facility] Neutrophil Absolute 3.8 1.7 - 7.0 10(9)/L 02/16/2023 12:36 PM [facility] Lymphocyte Absolute 1.8 1.0 - 4.8 10(9)/L 02/16/2023 12:36 PM [facility] Monocyte Absolute 0.8 0.2 - 0.9 10(9)/L 02/16/2023 12:36 PM CDT [facility] Eosinophil Absolute 0.2 0.0 - 0.5 10(9)/L 02/16/2023 12:36 PM CDT [facility] Basophil Absolute 0.1 0.0 - 0.3 10(9)/L 02/16/2023 12:36 PM CDT [facility] Immature Granulocyte % 0.3 0.0 - 0.5 % 02/16/2023 12:36 PM CDT [facility] Blood Venipuncture / Unknown 02/16/2023 12:33 PM CDT 02/16/2023 12:33 PM CDT Hans Gasca MD LAB_1 [facility] [address] [place] [id number], [facility] [phone] * AST (02/16/2023 12:33 PM CDT) AST (SGOT) 27 10 - 40 U/L 02/16/2023 4:49 PM CDT [facility] Blood Venipuncture / Unknown 02/16/2023 12:33 PM CDT 02/16/2023 12:33 PM CDT Hans Gasca MD LAB_1 [facility] [address] [id number], [facility] [phone] * Creatinine / GFR (02/16/2023 12:33 PM CDT) Creatinine 0.70 0.55 - 1.02 mg/dL 02/16/2023 4:49 PM CDT [facility] GFR, Estimated >60 >60 mL/min/1.7 3m2 02/16/2023 4:49 PM CDT [facility] Blood Venipuncture / Unknown 02/16/2023 12:33 PM CDT 02/16/2023 12:33 PM CDT Hans Gasca MD LAB_1 [facility] [address] [place] [address], [facility] [phone] documented in this encounter Visit Diagnoses Diagnosis Inflammatory polyarthropathy (HRC) Unspecified inflammatory polyarthropathy documented in this encounter Care Teams Distance Learning Technician Relationship Specialty Start Date End Date Greg Bettencourt MD [address] [place] [address] PCP - General 03/21/13 documented as of this encounter
--- OUTSIDE RECORDS SUMMARY | 2023-05-18 02:53 | XMS_ITS | Clinical Summary ---
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 022 Chronic fatigue 01/18/2020 group home current use of therapeutic drug 2018 Primary [...] polyarthropathy 06/25/2011 Overview: Unspecified inflammatory polyarthropathy (HRC) 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 (NSAID) [...] Description 02/18/2023 11:45 AM CDT Office Visit [facility] [address] [place] [address] Hans Gasca MD CREST syndrome (HRC) (Primary Dx); Inflammatory polyarthropathy (HRC); Primary osteoarthritis of both first carpometacarpal joints; group home current use of therapeutic drug; Pain of left midfoot 02/16/2023 12:30 PM CDT Lab Visit [facility] [address] [place] [address] Inflammatory polyarthropathy (HRC) from Last 3 Months Immunizations Name Administration Dates Next Due Flu Vac (3+ yrs) 01/26/2018,01/16/2014, 3 Flu Vac Preserv Free (3+yrs) 2012, 01/28/2012,01/29/2011, 010,01/17/2009 Influenza IIV3 (Trivalent) F luzone Highdose, 65+ Yrs (35869) 01/02/2019 Influenza IIV4 (Quadrivalent ) 0.5mL (33222) 01/21/2021,01/02/2019,01/26/2018, 018,01/28/2017,01/07/2016,01/03/2015,,01/13/2013,01/28/2012,01/29/2011 ,02/12/2010,02/01/2009,01/17/2009,2004 Influenza IIV4 (Quadrivalent ) [...] T Respiratory Rate 16 04/08/2021 10:18 AM PRINTING ROLLER HANDLER Oxygen Saturation 94% 04/08/2021 10:31 AM PRINTING ROLLER HANDLER Inhaled Oxygen Concentration - - Weight 73.5 kg (162 lb) 11/12/2022 1:01 PM CDT Height 162.6 cm (5' 4) 06/16/2022 2:57 PM PRINTING ROLLER HANDLER Body Mass Index 27.81 06/16/2022 2:57 PM PRINTING ROLLER HANDLER Plan of Treatment Upcoming Encounters Date Type Department Care Team Description 05/27/2023 9:45 AM PRINTING ROLLER HANDLER Appointment [facility] [address] [place] [address] Hans Gasca MD [address] [place] [address] Health Maintenance Due Date Last Done Comments [...] / GFR (02/16/2023 12:33 PM CDT) Pathologist [facility] Creatinine 0.70 0.55 - 1.02 mg/dL 02/16/2023 4:49 PM CDT [facility] GFR, Estimated >60 >60 mL/min/1.7 3m2 02/16/2023 4:49 PM CDT [facility] Blood Venipuncture / Unknown 02/16/2023 12:33 PM CDT 02/16/2023 12:33 PM CDT Hans Gasca MD LAB_1 [facility] [address] [place] [address], [facility] [phone] * (ABNORMAL) Complete Blood Count-W/Diff (02/16/2023 12:33 PM CDT) Pathologist [facility] WBC 6.5 3.5 - 10.5 x10(9)/L 02/16/2023 12:36 PM T [facility] RBC 3.57(L) 3.90 - 5.03 x10(12)/L 02/16/2023 12:36 PM [facility] Hemoglobin 12.3 12.0 - 15.5 g/dL 02/16/2023 12:36 PM [facility] HCT 36.7 34.9 - 44.5 % 02/16/2023 12:36 PM [facility] MCV 102.8(H) 80.0 - 100.0 fL 02/16/2023 12:36 PM [facility] MCH 34.5(H) 27.6 - 33.3 pg 02/16/2023 12:36 PM [facility] MCHC 33.5 31.5 - 35.2 g/dL 02/16/2023 12:36 PM [facility] RDW 13.2 11.9 - 15.5 % 02/16/2023 12:36 PM [facility] Platelets 236 150 - 450 x10(9)/L 02/16/2023 12:36 PM [facility] Automated NRBC 0 <=0 /100 WBC 02/16/2023 12:36 PM T [facility] Neutrophil Absolute 3.8 1.7 - 7.0 10(9)/L 02/16/2023 12:36 PM T [facility] Lymphocyte Absolute 1.8 1.0 - 4.8 10(9)/L 02/16/2023 12:36 PM T [facility] Monocyte Absolute 0.8 0.2 - 0.9 10(9)/L 02/16/2023 12:36 PM T [facility] Eosinophil Absolute 0.2 0.0 - 0.5 10(9)/L 02/16/2023 12:36 PM [facility] Basophil Absolute 0.1 0.0 - 0.3 10(9)/L 02/16/2023 12:36 PM [facility] Immature Granulocyte % 0.3 0.0 - 0.5 % 02/16/2023 12:36 PM [facility] Blood Venipuncture / Unknown 02/16/2023 12:33 PM CDT 02/16/2023 12:33 PM CDT Hans Gasca MD LAB_1 Performing Organization Address [facility]/ZIP Co de Phone Number [facility] [address] [place] [address], [facility] [phone] * AST (02/16/2023 12:33 PM CDT) Pathologist [facility] AST (SGOT) 27 10 - 40 U/L 02/16/2023 4:49 PM CDT [facility] Blood Venipuncture / Unknown 02/16/2023 12:33 PM CDT 02/16/2023 12:33 PM CDT Hans Gasca MD LAB_1 Performing Organization Address [facility]/ZIP Co de Phone Number [facility] [address] [place] [address], [place] [phone] from Last 3 Months Care Teams Race Engine Builder Relationship Specialty Start Date End Date Greg Bettencourt MD [address] [place] [address] PCP - General 03/21/13
--- OUTSIDE RECORDS SUMMARY | 2023-05-18 02:53 | XMS_ITS | Encounter Summary ---
Author Name Unknown Organization [facility] Address [address] [place] [address] Care Team Providers Care Rn First Assist Name Role Phone Greg Bettencourt MD Primary Care Provider [phone] Reason for Referral * (Routine) - New Request Specialty Diagnoses / Procedures Referred By Contac t Referred To Contact Diagnoses Primary osteoarthritis of both first carpometacarpal joints Procedures Triamcinolone Acet Inj Nos: (per 10 mg) Hans Gasca MD [address] [place] [address] Referral ID Status Reason Start Date Expiration Date V isits Requested Visits Authorized [id number] New Request 11/12/2022 2024 1 1 * Procedure/Equipment (Routine) - Incomplete Specialty Diagnoses / Procedures Referred By Contac t Referred To Contact Diagnoses Pain of left midfoot Procedures XR Foot 3+ Views/Ankle 2 Views Series Lt Hans Gasca MD [address] [place] [address] Referral ID Status Reason Start Date Expiration Date V isits Requested Visits Authorized [id number] Incomplete 11/12/2022 2024 1 1 * Procedure/Equipment (Routine) - Incomplete Specialty Diagnoses / Procedures Referred By Contac t Referred To Contact Diagnoses Primary osteoarthritis of both first carpometacarpal joints Procedures XR Finger Rt Thumb 2+ Views Hans Gasca MD [address] [place] [address] Referral ID Status Reason Start Date Expiration Date V isits Requested Visits Authorized [id number] Incomplete 11/12/2022 2024 1 1 * Procedure/Equipment (Routine) - Incomplete Specialty Diagnoses / Procedures Referred By Contac t Referred To Contact Diagnoses Primary osteoarthritis of both first carpometacarpal joints Procedures XR Finger Lt Thumb 2+ Views Hans Gasca MD [address] [place] [address] Referral ID Status Reason Start Date Expiration Date V isits Requested Visits Authorized [id number] Incomplete 11/12/2022 2024 1 1 Reason for Visit * Reason Comments Follow-up Encounter Details Date Type Department Care Team Description 11/12/2022 1:15 PM CDT Office Visit [facility] [address] [place], [place] [address] [place] [address] [place] [address] [phone] Pain of left midfoot (Primary Dx); CREST syndrome (HRC); Inflammatory polyarthropathy (HRC); Primary osteoarthritis of both first carpometacarpal joints; 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 She is status post left knee replacement April,. She is up-to-date on the shingles vaccine. 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
--- OUTSIDE RECORDS SUMMARY | 2023-05-18 02:53 | XMS_ITS | Encounter Summary ---
Author Name Unknown Organization [facility] Address [address] [place] [address] Care Team Providers Care Pouncing Machine Operator Name Role Phone Greg Bettencourt MD Primary Care Provider [phone] Reason for Visit * Procedure/Equipment (Routine) - Incomplete Specialty Diagnoses / Procedures Referred By Fide t Referred To Contact Diagnoses Primary osteoarthritis of both first carpometacarpal joints Procedures XR Finger Lt Thumb 2+ Views Hans Gasca MD [address] [place] [address] Referral ID Status Reason Start Date Expiration Date V isits Requested Visits Authorized [id number] Incomplete 11/12/2022 2024 1 1 Encounter Details Date Type Department Care Team Description 11/12/2022 1:40 PM CDT Ancillary Procedure [facility] [address] [place], [place] [address] Hans Gasca MD [address] [place], [place] [address] Primary osteoarthritis of both first carpometacarpal joints [...] Department Care Team Description 05/27/2023 9:45 AM RADIOLOGY EQUIPMENT SERVICER Appointment [facility] [address] [place], [place] [address] Hans Gasca MD [facility] [place] [address] documented as of this encounter Procedures Procedure [...] hand documented in this encounter Care Teams Pouncing Machine Operator Relationship Specialty Start Date End Date Greg Bettencourt MD [address] [place] [address] PCP - General 03/21/13 documented as of this encounter
--- OUTSIDE RECORDS SUMMARY | 2023-05-18 02:53 | XMS_ITS | Encounter Summary ---
Author Name Unknown Organization [facility] Address [address] [place] [address] Care Team Providers Care Fagot Heater Name Role Phone Greg Bettencourt MD Primary Care Provider [phone] [phone] Reason for Referral * (Routine) - New Request Specialty Diagnoses / Procedures Referred By Fide t Referred To Contact Diagnoses Primary osteoarthritis of both first carpometacarpal joints Procedures Triamcinolone Acet Inj Nos: (per 10 mg) Hans Gasca MD [address] [place] [address] Referral ID Status Reason Start Date Expiration Date V isits Requested Visits Authorized [id number] New Request 02/18/2023 05/19/2024 1 1 Reason for Visit * Reason Comments Follow-up Encounter Details Date Type Department Care Team Description 02/18/2023 11:45 AM CDT Office Visit [facility] [address] [place], [place] [address] Hans Gasca MD [address] [place] [address] CREST syndrome (HRC) (Primary Dx); Inflammatory polyarthropathy (HRC); Primary osteoarthritis of both first carpometacarpal joints; 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 She gets her primary care through [facility]. She is status post left knee replacement April,. She is up-to-date on the shingles vaccine. She had a DEXA scan at [facility] I believe in 2019, lowest [...] Department Care Team Description 05/27/2023 9:45 AM CERT OCCUPATIONAL THERAPY ASST Appointment [facility] [address] [place] [address] Hans Gasca MD [address] [place] [address] documented as of this encounter Visit Diagnoses Diagnosis CREST syndrome (HRC)- Primary Systemic sclerosis Inflammatory polyarthropathy (HRC) Unspecified inflammatory polyarthropathy Primary osteoarthritis of both first carpometacarpal joints Primary localized osteoarthrosis, hand prison current use of therapeutic drug Pain of left midfoot documented in this encounter Care Teams Fagot Heater Relationship Specialty Start Date End Date Greg Bettencourt MD [address] [place] [address] PCP - General 03/21/13 documented as of this encounter
--- OUTSIDE RECORDS SUMMARY | 2023-05-18 02:53 | XMS_ITS | Encounter Summary ---
Author Name Unknown Organization [facility] Address [address] [place] [address] Care Team Providers Care Guide Visitor Name Role Phone Greg Bettencourt MD Primary Care Provider [phone] [phone] Reason for Visit * Procedure/Equipment (Routine) - Incomplete Specialty Diagnoses / Procedures Referred By Contac t Referred To Contact Diagnoses Pain of left midfoot Procedures XR Foot 3+ Views/Ankle 2 Views Series Lt Hans Gasca MD [address] [place] [address] Referral ID Status Reason Start Date Expiration Date V isits Requested Visits Authorized [id number] Incomplete 11/12/2022 2024 1 1 Encounter Details Date Type Department Care Team Description 11/12/2022 1:50 PM CDT Ancillary Procedure [facility] [address] [place] [address] Hans Gasca MD [address] [place] [address] Pain of left midfoot Social History Tobacco [...] Care Team Description 05/27/2023 9:45 AM FIRE EQUIPMENT INSPECTOR Appointment [facility] [address] [place] [address] Hans Gasca MD [address] [place] [address] documented as of this encounter Procedures Procedure [...] midfoot documented in this encounter Care Teams Guide Visitor Relationship Specialty Start Date End Date Greg Bettencourt MD [address] [place] [address] PCP - General 03/21/13 documented as of this encounter
--- OUTSIDE RECORDS SUMMARY | 2023-05-18 02:53 | XMS_ITS | Encounter Summary ---
Author Name Unknown Organization [facility] Address [address] [place] [address] Care Team Providers Care Qi Specialist Name Role Phone Greg Bettencourt MD Primary Care Provider [phone] Reason for Visit * Procedure/Equipment (Routine) - Incomplete Specialty Diagnoses / Procedures Referred By Fide t Referred To Contact Diagnoses Primary osteoarthritis of both first carpometacarpal joints Procedures XR Finger Rt Thumb 2+ Views Hans Gasca MD [address] [place] [address] Referral ID Status Reason Start Date Expiration Date V isits Requested Visits Authorized [id number] Incomplete 11/12/2022 2024 1 1 Encounter Details Date Type Department Care Team Description 11/12/2022 1:45 PM CDT Ancillary Procedure [facility] [address] [place], [place] [address] Hans Gasca MD [address] [place], [place] [address] Primary osteoarthritis of both first carpometacarpal joints [...] Department Care Team Description 05/27/2023 9:45 AM POWDER GUARD Appointment [facility] [address] [place], [place] [address] Hans Gasca MD [facility] [place] [address] documented as of this encounter Procedures Procedure [...] hand documented in this encounter Care Teams Qi Specialist Relationship Specialty Start Date End Date Greg Bettencourt MD [address] [place] [address] PCP - General 03/21/13 documented as of this encounter
--- OUTSIDE RECORDS SUMMARY | 2023-05-18 02:54 | XMS_ITS | Encounter Summary ---
Author Name Unknown Organization [facility] Address [address] [place] [address] Care Team Providers Care Foot Drill Operator Name Role Phone [facility]- Vielka vailable Unavailable Md, Not Listed Primary Care Provider Unavailabl e Reason for Visit * Reason Comments Trauma Fell - ankle and tib /fib fx * Inpatient Admission (Routine) Specialty Diagnoses / Procedures Referred By Fide ulrich Referred To Contact Diagnoses Fall down stairs, initial encounter Referral ID Status Reason Start Date Expiration Date Visits Re quested Visits Authorized [id number] 1 1 Encounter Details Date Type Department Care Team (Late st Contact Info) Description 11/26/2022 9:55 AM CDT - 11/26/2022 12:25 PM CDT Surgery [facility] Operating Room [address] [place] [address] [place] [address] Harsh Kumari MD [address] [address] INTRAMEDULLARY TIBIA LEFT ORIF Surgery Details Date/Time [...] encounter Discharge Summaries * Jazmín Xiong, ERASMO, BRAND COMMUNICATIONS MANAGER - 11/27/2022 9:14 AM CDT HOSPITAL DISCHARGE [...] Your Medications These medications were sent to [facility] [address] [facility] [address] Hours: Mon-Fri: 7:30AM-6PM / Sat: 9AM-3PM / [...] follow-up provider: . [facility] ([facility] the [facility] from the hospital emergency room) Appointment on 12/10 at 1:35 PM [address] , [address] [facility] [address] Please call [phone] with any questions Surgery, [facility] General And Trauma Specify time frame [...] to contact our Trauma Surgery Clinic at [phone]. PENDING TEST RESULTS: None. HOSPITAL COURSE: Darcy Camejo is a 67 y.o. female who presented to [facility] on 11/26 with a closed left [...] ECHO (06/09/22) with LVEF60% 2. HTN: continued TEST DRIVER metoprolol and losartan 3. Reynaud's syndrome, CREST: continue TEST DRIVER amLODipine, celecoxib, no NSAIDs prescribed at time of discharge. Methotrexate not due this time of admission. 4. Depression/anxiety: continued TEST DRIVER sertraline 5. GERD: continued TEST DRIVER Prilosec PROCEDURES: OR 11/26/22 (Dr. Harsh Kumari) [...] Over 30 minutes. Jazmín Xiong DNP, AGACNP, WAREHOUSE TRAFFIC SUPERVISOR Department of Trauma, Emergency, General Surgery, and [...] with Dr. Kumari on 12/10 at the [facility] Continue to follow Subjective/Objective Sitting in recliner, pain under control, spouse at bedside Pain well controlled with tylenol, ibuprofen, oxycodone CMS/Neurovasc intact to LLE Splint to LLE- c/d/I Dayna Crenshaw PA-C Orthopedic Trauma Pager: [phone] * Pratik Salvador RN - 11/27/2022 4:08 [...] PIV X1 D- Discharge: TBD * Pamela Taylor, RN - 11/26/2022 2:53 PM CDT Med-Surg Care Progression Note Type: Shift Length of stay: 0 days Code Status: Full Code Primary Problem: Fell on stairs at home, fx tibia/fibula Summary: POD 0 for IMN of Left tib/fib, in splint with JIMY wrap. LLE NWB. Returned from surg in [id number] hour, on post-op vitals - Bps trending [...] x 1 D- Discharge: Lives with in [place], daughter visiting is RN * Jazmín Xiong, ERASMO, BRAND COMMUNICATIONS MANAGER - 11/26/2022 8:02 AM CDT BRIEF TRAUMA TERTIARY EXAM NOTE LOS: 0 days Patient seen on 11/26/2022 at 10:57 AM. CC/HPI: Fall down stairs, initial encounter INTERVAL HISTORY: Admitted overnight from [place] with L tib/fib fx. Anticipate OR today with Ortho. Pain well-controlled. No paresthesias. Isolated injury. No other complaints/concerns. Awaiting med rec. TEST DRIVER MEDICATIONS: Awaiting med rec CURRENT MEDS: Current [...] medicated 1-3 patch, 1-3 patch, Transdermal, DAILY [Jun] melatonin tablet 3 mg, 3 mg, oral, [...] on guard, watchful, or easily startled? no [place] numb or detached from people, activities, or your surroundings? no [place] guilty or unable to stop blaming yourself [...] a 67 y.o. female who presented to [facility] on 11/26 with a closed left tib/fib fracture. She was admitted to the trauma service with orthopedic consultation. Fall from standing - Mechanical in nature, no further work-up indicated - Tertiary exam completed without new injury identified - Medication reconciliation pending - Will resume essential TEST DRIVER medications PRN - PT/OT - Pending - [...] N/A. Bowel Medications: Bowel regimen ordered. LBM: TEST DRIVER. Hayes: N/A. DVT Prophylaxis: Holding pre-op per ortho. Re-evaluate post-op. Restraints: N/A. Wounds/Skin Care/Dexter/Sutures: Local skin cares per nursing staff. Pressure [...] joint decision making. Jazmín Xiong, SHERRIE, AGACNP, WAREHOUSE TRAFFIC SUPERVISOR Department of Trauma, Emergency, General Surgery, and [...] aware of her Raynards diagnoses. Transferred from [place]. Has been NPO. Puewick placed. Dilaudid x [...] x 1 D- Discharge: Lives with in [place] * Jazmín Xiong MOBILE NURSE, BRAND COMMUNICATIONS MANAGER - 11/26/2022 3:09 AM CDT TRAUMA PROBLEM LIST/SUMMARY Admit Date: 11/26/2022 No past medical history on file. INJURIES Principal Problem: Fall down stairs, initial encounter Active Problems: Tibia/fibula fracture, left, closed, initial encounter PROCEDURES AND EVENTS 11/26 Trauma floor Ortho NPO OR Tertiary Exam: done 11/26 Screening Dates: AUDIT-C: done 11/26 ASD: done 11/26 Education Folder: done 11/26 Sutures & Dexter: Incidental Findings: Resolved Problems: Discharge follow up [...] Evaluation: Time Consulted 02:14 Arrival/Pre-Notification: Referring [facility] CHIEF COMPLAINT: ankle pain HPI: Darcy Camejo [...] noted in the HPI/Subjective. Last Oral Intake: 1829 Last Tetanus: Unknown PAST MEDICAL HISTORY: CREST [...] Motor grossly normal, Speech: normal, Sensation intact /SUPERVISOR PACKING: deferred Psych: appropriate affect Laboratory Data: No [...] consult H/O Crest Syndrome H/O arthritis - TEST DRIVER methotrexate, celoxib H/O Hypertension H/O Hyperlipidemia - TEST DRIVER amlodipine, losartan-hctz, metoprolol XL, rosuvastatin H/O GERD - TEST DRIVER prilosec Surgical Optimization: Based on history and [...] DVT Prophylaxis: mechanical Ulcer Prophylaxis: PPI - TEST DRIVER med Restraints: Not indicated Pain Management:: Other multimodal Sedation: none Warming Techniques: passive Family Conference: discussed with family Update Called To: [facility] Consult(s) Ortho - non-emergent 35 [...] needs OT Plan Comments: Pt admitted to [facility] on 11/26/22 following a fall down [...] independent with: All ADLs/IADLs 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 FUNCTIONAL MOBILITY Functional [...] Toe Touch Weight Bearing Precautions Comments: LLE ijmy wrapped and splinted Assessment PT Assessment/Recommendations Assessment: [...] Crutches History of falls: denies, other than TEST DRIVER Pain Patient complained of 5/10 pain in [...] today to educate pt on stair navigation [facility] AM-PAC 6-Clicks Turning over in bed (including [...] CONSULTATION NOTE PATIENT NAME: Darcy Camejo ADDRESS: [id number] [facility] [address] AGE: 67 y.o. SEX: female Admission Date/Time: [...] to follow Dayna Crenshaw PA-C Ortho-trauma amion: [phone] documented in this encounter Nursing Notes * Cary Marie RN - 11/27/2022 2:48 PM CDT Problem: Falls/Injury-Risk of Goal: Absence of Falls/Injury 11/27/20221447 by Cary Marie, EPIFANIO Outcome: Completed 11/27/2022 1447 by Cary Marie, EPIFANIO Outcome: Met this shift Problem: Discharge Planning Goal: Establish appropriate post-hospitalization placement 11/27/2022 1448 by Cary Marie RN Outcome: Completed 11/27/20221446 by Cary Marie RN Outcome: Met this shift Problem: Communication Goal: Demonstrates/exhibits ability to communicate needs effectively 11/27/2022 144 by Cary Marie RN Outcome: Completed 11/27/20221446 [...] Crutches History of falls: denies, other than TEST DRIVER Pain Patient complained of 5/10 pain in [...] maintain NWB and perform in seated position. [facility] AM-PAC 6-Clicks Turning over in bed (including [...] will continue to follow. ROSE Linda Pager [phone] documented in this encounter OR Notes * OR Surgeon - Harsh Kumari MD - 11/26/2022 10:55 AM CDT [facility] Orthopedic Operative Note Intramedullary Nailing Tibial Shaft [...] radiograph left ankle SURGEON: Harsh Kumari MD EMR TRAINER: Sharan Donaldson PA-C, whose assistance was required [...] When that was complete, we obtained perfect eagle imaging distally and drilled for and placed [...] out of plaster nonweightbearing Harsh Kumari MD [facility] Orthopedics documented in this encounter ED Notes [...] External Notes: I reviewed the note from [facility] from 11/25/22. MEDICATIONS: No current facility-administered medications [...] is accurate. Pura Donovan MD 11/26/22 11/26/2022 [facility] EMERGENCY DEPARTMENT * Marcos Stern [...] managed as an inpatient. Expected Management: Eval/treat Livestock Buyer Notified: No Method of arrival: Ground Domenico Arcos MD documented in this encounter Miscellaneous Notes * Med Reconciliation - Joselyn Holman, Pharm D - 11/26/2022 2:29 PM CDT PHARMACY MEDICATION RECONCILIATION NOTE MEDICATION RECONCILIATION on admission by pharmacy has been completed. Prior to admission medications were reviewed with patient home medications list provided by [facility] recent fill history. The TEST DRIVER medication list has been updated and reflected in the chart below. Please use the TEST DRIVER medication section for ordering home doses during [...] Medications: None This patient obtains medications from [id number] - [place], [place] - [address] [facility]. Thank you for the opportunity to participate in the care of this patient. Phone #:[phone] Time spent reconciling meds:8 min Location: face to face encounter Joselyn Carrion PharmD, [facility], 11/26/2022 2:30 PM documented in this encounter [...] mmol/L ATELLICA ANALYZER 11/27/2022 7:59 AM CDT [facility] Potassium 3.8 3.4 - 5.1 mmol/L ATELLICA ANALYZER 11/27/2022 7:59 AM CDT [facility] Chloride 107 98 - 108 mmol/L ATELLICA ANALYZER 11/27/2022 7:59 AM CDT [facility] Carbon Dioxide 27 20 - 31 mmol/L ATELLICA ANALYZER 11/27/2022 7:59 AM CDT [facility] BUN (Urea Nitro) 9 9 - 23 mg/dL ATELLICA ANALYZER 11/27/2022 7:59 AM CDT [facility] Creatinine 0.65 0.55 - 1.02 mg/dL ATELLICA ANALYZER 11/27/2022 7:59 AM T [facility] Est GFR (CKD-EPI) >60.00 >60.00 mL/min/1. 73m2 ATELLICA ANALYZER 11/27/2022 7:59 AM CDT [facility] Comment:Calculation based on the Chronic Kidney Disease Epidemiology Collaboration (CKD-EPI) equation refit without adjustment for race. Glucose 107(H) 74 - 106 mg/dL ATELLICA ANALYZER 11/27/2022 7:59 AM CDT [facility] Calcium, Serum 9.5 8.7 - 10.4 mg/dL ATELLICA ANALYZER 11/27/2022 7:59 AM CDT [facility] Anion Gap 6.0 0.0 - 15.0 mmol/L ATELLICA ANALYZER 11/27/2022 7:59 AM T [facility] Blood 11/27/2022 6:58 AM CDT 11/27/2022 7:30 AM CDT Ping Mcpherson MD CHEMISTRY ORDERAB LE [facility] [address] [address] * (ABNORMAL) CBC (HGB,HCT,WBC,RBC,Platelet) (11/27/2022 6:58 AM CDT) Only the most recent of2 resultswithin the time period is included. WBC 8.6 4.3 - 10.8 K/uL 11/27/2022 7:45 AM CDT [facility] RBC 3.16(L) 4.20 - 5.40 M/uL 11/27/2022 7:45 AM T [facility] Hemoglobin 10.5(L) 12.0 - 16.0 gm/dL 11/27/2022 7:45 AM T [facility] Hematocrit 33.0(L) 36.0 - 48.0 % 11/27/2022 7:45 AM T [facility] MCV 104(H) 80 - 100 fL 11/27/2022 7:45 AM T [facility] MCH 33 27 - 33 pg 11/27/2022 7:45 AM T [facility] MCHC 32(L) 33 - 36 gm/dL 11/27/2022 7:45 AM T [facility] RDW 14.1 11.5 - 14.5 % 11/27/2022 7:45 AM T [facility] Platelet Count 210 150 - 400 K/UL 11/27/2022 7:45 AM T [facility] MPV 9.3 6.5 - 12 fL 11/27/2022 7:45 AM T [facility] Blood 11/27/2022 6:58 AM CDT 11/27/2022 7:31 AM CDT Ping Mcpherson MD HEMATOLOGY ORDERA BLE [facility] [address] [place] [address] * XR FLUORO MANUAL STRESS (11/26/2022 12:14 [...] 0.9 - 1.2 11/26/2022 6:27 AM CDT [facility] Blood 11/26/2022 5:27 AM CDT 11/26/2022 6:07 AM CDT Ping Mcpherson MD COAGULATION ORDER ABLE [facility] [address] [place] [address] * ABORh Confirm (Lab Use Only) (11/26/2022 5:25 AM CDT) Group and Rh AB Positive 11/26/2022 6:33 AM CDT [facility] Blood 11/26/2022 5:25 AM CDT 11/26/2022 6:05 AM CDT Ping Mcpherson MD BLOOD BANK ORDERA BLE Performing Organization Address [facility] de Phone Number [id number] [place] [address] * Type & Screen (11/26/2022 3:06 AM CDT) Pathologist [facility] Group and Rh AB Positive 11/26/2022 4:53 AM CDT [facility] Antibody Screen Negative 11/26/2022 4:53 AM CDT [facility] Blood 11/26/2022 3:06 AM CDT 11/26/2022 3:24 AM CDT Aspen Santoyo PA-C BLOOD BANK ORDERABLE Performing Organization Address [facility] de Phone Number [id number] [place] [address] * EKG (11/26/2022 3:04 AM CDT) Pathologist [facility] EKG [facility] Comment: ?[facility] ? Test Date: ?2022-11-26 Pat Name: ? DARCY HEMAN ?Department: ?? ED ?Room: ? ED22 Gender: ? F ?Portable Irrigation Operator: ?? [id number] : ?[id number] ? Requested By: PURA DONOVAN MD Order Number: [id number] ?Reading MD: ?? Pura Donovan MD ? Measurements Intervals ?Hurst ? Rate: ? 68 ? P: ?39 [place]: ? 166 ?QRS: ?13 QRSD: ? 86 ? T: ?24 QT: ? 401 ? QTc: ?428 ? Interpretive Statements Indication for EKG: ??Preop Rhythm: ??Normal sinus rhythm. ?? Morphology: ??No new ST/T changes suggestive of ischemia. Intervals: ??Normal intervals. Hurst: ??Normal axis. No previous ECG available for comparison Electronically Signed On 11-26-2022 3:10:00 CDT by Pura Donovan MD 11/26/2022 3:04 AM CDT Pura Donovan MD EKG ORDERABLE Performing Organization Address City/State/[facility] Co de Phone Number Emile HUERTAS [address] [facility] [place] [address] * XR OUTSIDE LOWER EXTREMITY STUDY (11/26/2022 [...] (Automatically Held - Provider: Interface, Incoming Adt)1412 (MAR Unhold - Provider: Interface, Incoming Adt)2125 (Given [...] 1045 (Given - Provider: David Matos APRN, PHOTOGRAPHER ASSISTANT) enoxaparin (LOVENOX) injection 40 mg 40 mg, [...] Raquel Samuels RN) 0851 (Given - Provider: aCry Marie RN) folic acid (FOLVITE) tablet 1 [...] (Automatically Held - Provider: Interface, Incoming Adt)1318 (JUN Unhold - Provider: Patricia Ball, Pharm D) 1440 (Given - Provider: Cary Marie RN) ibuprofen tablet 400 mg(Linked Group 3) 400 mg, oral, EVERY 6 HOURS (NS), 8 doses, First dose on Thu11/26/22 at 1400, Last dose on Thu11/28/22 at 0800 1322 (See Alternative - Provider: Amanda Rubio RN)1925 (Given - Provider: Raquel Samuels RN) 0240 (Given - Provider: Pratik Salvador, EPIFANIO)0849 (Given - Provider: Cary Marie RN)1400 (Given - Provider: Cary Marie RN) ketorolac (ToradoL) injection 15 mg(Linked Group 3) 15 mg, Intravenous, EVERY 6 HOURS (NS), 8 doses, First dose on Thu11/26/22 at 1400, Last dose on Thu11/28/22 at 0800, Maximum duration of treatment is 5 days. 1322 (Given - Provider: Amanda Rubio RN)192 (See Alternative - Provider: Raquel Samuels RN) [...] Provider: Interface, Incoming Adt - Reason: Procedure)141 (MAR Unhold - Provider: Interface, Incoming Adt)2122 [...] (New Bag - Provider: David Matos APRN, PHOTOGRAPHER ASSISTANT) Continuous Medication Order 11/25/2022 11/26/2022 11/27/2022 lactated [...] NEEDED, Starting on Thu11/26/22 at 0355, Until 11/26/22 at 1343, for pain while strict NPO, may give in addition to non-opioid analgesics when ordered 0414 (Given - Provider: Coral Rosario RN)0940 (MAR Hold - Provider: Interface, Incoming Adt - Reason: Procedure)1343 (MAR Unhold - Provider: Marcos Bell, Pharm [...] Starting on Thu11/26/22 at 1436, Until Betty 8 at 2311, SBP >160mmHg. HOLD for HR <60bpm. methocarbamoL (ROBAXIN) tablet 250 mg(Linked Group 5) 250 mg, oral, EVERY 6 HOURS NEEDED, Starting on Thu11/26/22 at 0355, Until Betty 8 at 2311, muscle spasm, muscle pain 0940 (MAR Hold - Provider: Interface, Incoming Adt - Reason: Procedure)141 (MAR Unhold - Provider: Interface, Incoming Adt) methocarbamoL (ROBAXIN) tablet 500 mg(Linked Group 5) 500 mg, oral, EVERY 6 HOURS NEEDED, Starting on Thu11/26/22 at 0355, Until Betty 8 at 2311, muscle spasm, muscle pain 0940 [...] area documented in this encounter Care Teams Foot Drill Operator Relationship Specialty Start Date End Date [facility]- PCP - Primary Care Clinic 11/26/22 Md, Not Listed no address PCP - General Internal Medicine 11/26/22 documented as of this encounter
--- OUTSIDE RECORDS SUMMARY | 2023-05-18 02:54 | XMS_ITS | Encounter Summary ---
Author Name Unknown Organization [facility] Address [address] [place] [address] Care Team Providers Care Half Section Ironer Name Role Phone [facility]ka vailable Unavailable Md, Not Listed Primary Care Provider Unavailabl e Reason for Referral * (Routine) - Open Specialty Diagnoses / Procedures Referred By Contac t Referred To Contact Procedures Return to previous diet Jazmín Xiong APRN, ALON [address] [place] [address] Referral ID Status Reason Start Date Expiration Date Visits Re quested Visits Authorized [id number] Open 11/27/2022 1 1 * (Routine) - Open Specialty Diagnoses / Procedures Referred By Contac t Referred To Contact Procedures No driving Jazmín Xiong APRN, DIRECTOR OUTCOMES [address] [place] [address] Referral ID Status Reason Start Date Expiration Date Visits Re quested Visits Authorized [id number] Open 11/27/2022 1 1 * (Routine) - Open Specialty Diagnoses / Procedures Referred By Contac t Referred To Contact Procedures Opiod discharge Jazmín Xiong APRN, CNP [address] [place] [address] Referral ID Status Reason Start Date Expiration Date Visits Re quested Visits Authorized [id number] Open 11/27/2022 1 1 * (Routine) - Open Specialty Diagnoses / Procedures Referred By Contac t Referred To Contact Jazmín Xiong APRN, CNP [address] [place] [address] Clinic, No Primary Referral ID Status Reason Start Date Expiration Date Visits Re quested Visits Authorized [id number] Open 11/27/2022 1 1 Question Answer Specify [...] to contact our Trauma Surgery Clinic at [phone]. * (Routine) - Open Specialty Diagnoses / Procedures Referred By Fide t Referred To Contact Jazmín Xiong APRN, CNP [address] [place] [address] [facility] [address] [place] [address] Referral ID Status Reason Start Date Expiration Date Visits Re quested Visits Authorized [id number] Open 11/27/2022 1 1 Question Answer Specify time frame for follow up? As needed Instructions to follow-up provider Please call to schedule a follow-up with the trauma clinic if needed. * (Routine) - Open Specialty Diagnoses / Procedures Referred By Contac t Referred To Contact Procedures Any questions or concerns Jazmín Xiong APRN, ALON [address] [place] [address] Referral ID Status Reason Start Date Expiration Date Visits Re quested Visits Authorized [id number] Open 11/27/2022 1 1 * (Routine) - Open Specialty Diagnoses / Procedures Referred By Contac t Referred To Contact Procedures Medication refill policy Jazmín Xiong APRN, ALON [address] [place] [address] Referral ID Status Reason Start Date Expiration Date Visits Re quested Visits Authorized [id number] Open 11/27/2022 1 1 * (Routine) - Open Specialty Diagnoses / Procedures Referred By Contac t Referred To Contact Procedures DO NOT disturb dressing Dayna Crenshaw PA-C [address] [place] [address] Referral ID Status Reason Start Date Expiration Date Visits Re quested Visits Authorized [id number] Open 11/27/2022 1 1 * (Routine) - Open Specialty Diagnoses / Procedures Referred By Contac t Referred To Contact Procedures Elevate and ice Dayna Crenshaw PA-C [address] [place] [address] Referral ID Status Reason Start Date Expiration Date Visits Re quested Visits Authorized [id number] Open 11/27/2022 1 1 * (Routine) - Open Specialty Diagnoses / Procedures Referred By Contac t Referred To Contact Procedures Showering instructions Dayna Crenshaw PA-C [address] [place] [address] Referral ID Status Reason Start Date Expiration Date Visits Re quested Visits Authorized [id number] Open 11/27/2022 1 1 * (Routine) - Open Specialty Diagnoses / Procedures Referred By Contac t Referred To Contact Procedures Weight bearing restrictions Dayna Crenshaw PA-C [address] [place] [address] Referral ID Status Reason Start Date Expiration Date Visits Re quested Visits Authorized [id number] Open 11/27/2022 1 1 * (Routine) - Open Specialty Diagnoses / Procedures Referred By Contac t Referred To Contact Dayna Crenshaw PA-C [address] [place] [address] Harsh Kumari MD [address] [address] Referral ID Status Reason Start Date Expiration Date Visits Re quested Visits Authorized [id number] Open 11/27/2022 1 1 Question Answer Specify time frame for follow up? 2 Weeks Instructions to follow-up provider . Comments Follow up appointment at [facility] (Across the street from the hospital emergency room) Appointment on 12/10 at 1:35 PM [address], [address] [facility] [address] Please call [phone] with any questions * (Routine) - Open Specialty Diagnoses / Procedures Referred By Contac t Referred To Contact Procedures Temperature >101.5 (38.6 degrees Celsius) Dayna Crenshaw PA-C [address] [place] [address] Referral ID Status Reason Start Date Expiration Date Visits Re quested Visits Authorized [id number] Open 11/27/2022 1 1 * (Routine) - Open Specialty Diagnoses / Procedures Referred By Contac t Referred To Contact Procedures Pain not relieved by medication Dayna Crenshaw PA-C [address] [place] [address] Referral ID Status Reason Start Date Expiration Date Visits Re quested Visits Authorized [id number] Open 11/27/2022 1 1 Reason for Visit * Reason Comments Trauma Fell - ankle and tib /fib fx * Inpatient Admission (Routine) Specialty Diagnoses / Procedures Referred By Contac t Referred To Contact Diagnoses Fall down stairs, initial encounter Referral ID Status Reason Start Date Expiration Date Visits Re quested Visits Authorized [id number] 1 1 Encounter Details Date Type Department Care Team (Late st Contact Info) Description 11/26/2022 2:14 AM CDT - 11/27/2022 4:40 PM CDT Hospital Encounter A[address] [place] [id number] Pura Donovan MD [address] [facility] [address] [place], [place] [address] Ping Mcpherson MD [address] [place], [place] [address] Fall down stairs, initial encounter Discharge Disposition: [...] in this encounter Discharge Summaries * Jazmín Xiong APRN, DIRECTOR OUTCOMES - 11/27/2022 9:14 AM CDT HOSPITAL DISCHARGE SUMMARY Patient Name: Darcy Valera Date of : 1955 Attending Provider: Ping [...] Your Medications These medications were sent to [facility] [address] [facility] [address] Hours: Mon-Fri: 7:30AM-6PM / Sat: 9AM-3PM / [...] follow-up provider: . [facility] the [facility] emergency room) Appointment on 12/10 at 1:35 PM [address], [address] [facility] [address] Please call [phone] with any questions Surgery, [facility] General And Trauma Specify time frame [...] to contact our Trauma Surgery Clinic at [phone]. PENDING TEST RESULTS: None. HOSPITAL COURSE: Darcy Valera is a 67 y.o. female who presented to [facility] on 11/26 with a closed left [...] ECHO (06/09/22) with LVEF60% 2. HTN: continued COTTON STRIPPER metoprolol and losartan 3. Reynaud's syndrome, CREST: continue COTTON STRIPPER amLODipine, celecoxib, no NSAIDs prescribed at time of discharge. Methotrexate not due this time of admission. 4. Depression/anxiety: continued COTTON STRIPPER sertraline 5. GERD: continued COTTON STRIPPER Prilosec PROCEDURES: OR 11/26/22 (Dr. Harsh Kumari) [...] Over 30 minutes. Jazmín Xiong DNP, AGACNP, INNOVATION MANAGER Department of Trauma, Emergency, General Surgery, and [...] with Dr. Kumari on 12/10 at the [facility] Continue to follow Subjective/Objective Sitting in recliner, pain under control, spouse at bedside Pain well controlled with tylenol, ibuprofen, oxycodone CMS/Neurovasc intact to LLE Splint to LLE- c/d/I Dayna Crenshaw PA-C Orthopedic Trauma Pager: [phone] * Pratik Salvador RN - 11/27/2022 4:08 [...] wrap. LLE NWB. Returned from surg in [id number] hour, on post-op vitals - Bps trending [...] x 1 D- Discharge: Lives with in [place], daughter visiting is RN * Jazmín Xiong APRN, DIRECTOR OUTCOMES - 11/26/2022 8:02 AM CDT BRIEF TRAUMA TERTIARY EXAM NOTE LOS: 0 days Patient seen on 11/26/2022 at 10:57 AM. CC/HPI: Fall down stairs, initial encounter INTERVAL HISTORY: Admitted overnight from [facility] with L tib/fib fx. Anticipate OR today with Ortho. Pain well-controlled. No paresthesias. Isolated injury. No other complaints/concerns. Awaiting med rec. COTTON STRIPPER MEDICATIONS: Awaiting med rec CURRENT MEDS: Current [...] on guard, watchful, or easily startled? no [place] numb or detached from people, activities, or your surroundings? no [place] guilty or unable to stop blaming yourself [...] with bedside RN and orthopedics. ASSESSMENT/PLAN: Darcy Valera is a 67 y.o. female who presented to [facility] on 11/26 with a closed left tib/fib fracture. She was admitted to the trauma service with orthopedic consultation. Fall from standing - Mechanical in nature, no further work-up indicated - Tertiary exam completed without new injury identified - Medication reconciliation pending - Will resume essential COTTON STRIPPER medications PRN - PT/OT - Pending - [...] N/A. Bowel Medications: Bowel regimen ordered. LBM: COTTON STRIPPER. Ahyes: N/A. DVT Prophylaxis: Holding pre-op per ortho. [...] joint decision making. Jazmín Xiong, SHERRIE, AGACNP, INNOVATION MANAGER Department of Trauma, Emergency, General Surgery, and [...] aware of her Raynards diagnoses. Transferred from [facility]. Has been NPO. Puewick placed. Dilaudid x [...] x 1 D- Discharge: Lives with in [place] * Jazmín Xiong APRN, DIRECTOR OUTCOMES - 11/26/2022 3:09 AM CDT TRAUMA PROBLEM [...] ADMISSION HISTORY AND PHYSICAL Patient Name: Darcy Valera Address: No address on file. Age:67 y.o. Sex: female Admission Date/Time: 11/26/2022 2:14 AM Admitting provider: No admitting provider for patient encounter. Hospital Attending Physician: Pura Donovan MD Primary Care Provider: No primary care provider on file. Informant:patient Patient seen on 11/26/2022 at 02:30. Trauma Activation: Trauma Evaluation: Time Consulted 02:14 Arrival/Pre-Notification: Referring Hospital [facility] CHIEF COMPLAINT: ankle pain HPI: Darcy Valera is a 67 y.o. 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 female s/p Fall with above noted injuries. L tibia/fibula fracture: - not open - splinted - NPO - Ortho consult H/O Crest Syndrome H/O arthritis - COTTON STRIPPER methotrexate, celoxib H/O Hypertension H/O Hyperlipidemia - COTTON STRIPPER amlodipine, losartan-hctz, metoprolol XL, rosuvastatin H/O GERD - COTTON STRIPPER prilosec Surgical Optimization: Based on history and physical the patient is an appropriate risk for procedures in the OR as needed EKG pending DISPOSITION: Anticipated date of discharge 3-4d. Criteria for discharge is ortho consult, stabilization of injury, therapies. IP - Anticipated LOS >2Midnights due to acuity of clinical presentation requiring inpatient level of care Hayes: JUSTA DVT Prophylaxis: mechanical Ulcer Prophylaxis: PPI - COTTON STRIPPER med Restraints: Not indicated Pain Management:: Other multimodal Sedation: none Warming Techniques: passive Family Conference: discussed with family Update Called To: [facility] Consult(s) Ortho - non-emergent 35 [...] Occupational Therapy Acute Evaluation Patient Name: Darcy Valera Today's Date: 11/27/2022 Admission Date: 11/26/2022 ASSESSMENT/PLAN/RECOMMENDATIONS [...] needs OT Plan Comments: Pt admitted to [facility] on 11/26/22 following a fall [...] is independent with: All ADLs/IADLs 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 FUNCTIONAL MOBILITY Functional [...] Acute Physical Therapy Evaluation Patient Name: Darcy Valera Today's Date: 11/27/2022 Admission Date: 11/26/2022 Precautions [...] Crutches History of falls: denies, other than COTTON STRIPPER Pain Patient complained of 5/10 pain in [...] today to educate pt on stair navigation [facility] AM-PAC 6-Clicks Turning over in bed (including [...] ORTHOPAEDIC TRAUMA CONSULTATION NOTE PATIENT NAME: Darcy Valera ADDRESS: [address] [place] [address] AGE: 67 y.o. SEX: female Admission Date/Time: [...] to follow Dayna Crenshaw PA-C Ortho-trauma amion: [phone] documented in this encounter Nursing Notes * Cary Marie RN - 11/27/2022 2:48 PM CDT Problem: Falls/Injury-Risk of Goal: Absence of Falls/Injury 11/27/2022 1448 by Cary Marie RN Outcome: Completed 11/27/2022 1447 by Cary Marie [...] Acute Physical Therapy Treatment Patient Name: Darcy Valera Today's Date: 11/27/2022 Admission Date: 11/26/2022 Precautions [...] Crutches History of falls: denies, other than COTTON STRIPPER Pain Patient complained of 5/10 pain in [...] maintain NWB and perform in seated position. [facility] AM-PAC 6-Clicks Turning over in bed (including [...] will continue to follow. ROSE Linda Pager [phone] documented in this encounter OR Notes * OR Surgeon - Harsh Kumari MD - 11/26/2022 10:[address] [facility] Orthopedic Operative Note Intramedullary Nailing [...] radiograph left ankle SURGEON: Harsh Kumari MD COMPLIANCE EXAMINER: Sharan Donaldson PA-C, whose assistance was required [...] When that was complete, we obtained perfect [place] tribe imaging distally and drilled for and placed [...] out of plaster nonweightbearing Harsh Kumari MD [facility] documented in this encounter ED Notes * Pura Donovan MD - 11/26/2022 2:23 AM CDT CHIEF COMPLAINT: Ankle fracture HPI: Initial history obtained at 2:23 AM 11/26/22. Darcy Valera is a 67 y.o. female who presents [...] External Notes: I reviewed the note from [facility] from 11/25/22. MEDICATIONS: No current facility-administered medications [...] syringe 0.2-0.4 mg (0.4 mg Intravenous Given 11/26/22413) Assessments: Notable Events: Independent Interpretation (X-rays, CTs, [...] 16 92 % -- -- MDM: Darcy Valera is a 67 y.o. female who presents [...] accurate. Pura Donovan MD 11/26/22 11/26/2022 [facility] EMERGENCY DEPARTMENT * Marcos Stern [...] managed as an inpatient. Expected Management: Eval/treat Scratch Finisher Notified: No Method of arrival: Ground Domenico Arcos MD documented in this encounter Miscellaneous Notes * Med Reconciliation - Joselyn Holman, Pharm D - 11/26/2022 2:29 PM CDT PHARMACY MEDICATION RECONCILIATION NOTE MEDICATION RECONCILIATION on admission by pharmacy has been completed. Prior to admission medications were reviewed with patient home medications list provided by [facility] recent fill history. The COTTON STRIPPER medication list has been updated and reflected in the chart below. Please use the COTTON STRIPPER medication section for ordering home doses during [...] Medications: None This patient obtains medications from [facility][id number] - [place] - [address] [facility]. Thank you for the opportunity to participate in the care of this patient. Phone #:[phone] Time spent reconciling meds:8 min Location: face to face encounter Joselyn Carrion PharmD, [facility], 11/26/2022 2:30 PM documented in this encounter [...] mmol/L ATELLICA ANALYZER 11/27/2022 7:59 AM CDT [facility] Potassium 3.8 3.4 - 5.1 mmol/L ATELLICA ANALYZER 11/27/2022 7:59 AM CDT [facility] Chloride 107 98 - 108 mmol/L ATELLICA ANALYZER 11/27/2022 7:59 AM CDT [facility] Carbon Dioxide 27 20 - 31 mmol/L ATELLICA ANALYZER 11/27/2022 7:59 AM CDT [facility] BUN (Urea Nitro) 9 9 - 23 mg/dL ATELLICA ANALYZER 11/27/2022 7:59 AM CDT [facility] Creatinine 0.65 0.55 - 1.02 mg/dL ATELLICA ANALYZER 11/27/2022 7:59 AM CDT [facility] Est GFR (CKD-EPI) >60.00 >60.00 mL/min/1. 73m2 ATELLICA ANALYZER 11/27/2022 7:59 AM CDT [facility] Comment:Calculation based on the Chronic Kidney Disease Epidemiology Collaboration (CKD-EPI) equation refit without adjustment for race. Glucose 107(H) 74 - 106 mg/dL ATELLICA ANALYZER 11/27/2022 7:59 AM CDT [facility] Calcium, Serum 9.5 8.7 - 10.4 mg/dL ATELLICA ANALYZER 11/27/2022 7:59 AM CDT [facility] Anion Gap 6.0 0.0 - 15.0 mmol/L ATELLICA ANALYZER 11/27/2022 7:59 AM T [facility] Blood 11/27/2022 6:58 AM CDT 11/27/2022 7:30 AM CDT Ping Mcpherson MD CHEMISTRY ORDERAB LE [facility] [address] [address] * (ABNORMAL) CBC (HGB,HCT,WBC,RBC,Platelet) (11/27/2022 6:58 AM CDT) Only the most recent of2 resultswithin the time period is included. WBC 8.6 4.3 - 10.8 K/uL 11/27/2022 7:45 AM CDT [facility] RBC 3.16(L) 4.20 - 5.40 M/uL 11/27/2022 7:45 AM CDT [facility] Hemoglobin 10.5(L) 12.0 - 16.0 gm/dL 11/27/2022 7:45 AM CDT [facility] Hematocrit 33.0(L) 36.0 - 48.0 % 11/27/2022 7:45 AM CDT [facility] MCV 104(H) 80 - 100 fL 11/27/2022 7:45 AM CDT [facility] MCH 33 27 - 33 pg 11/27/2022 7:45 AM CDT [facility] MCHC 32(L) 33 - 36 gm/dL 11/27/2022 7:45 AM CDT [facility] RDW 14.1 11.5 - 14.5 % 11/27/2022 7:45 AM CDT [facility] Platelet Count 210 150 - 400 K/UL 11/27/2022 7:45 AM CDT [facility] MPV 9.3 6.5 - 12 fL 11/27/2022 7:45 AM CDT [facility] Blood 11/27/2022 6:58 AM CDT 11/27/2022 7:31 AM CDT Ping Mcpherson MD HEMATOLOGY ORDERA BLE [facility] [address] [place] [id number] * XR FLUORO MANUAL STRESS (11/26/2022 12:14 [...] 0.9 - 1.2 11/26/2022 6:27 AM CDT [facility] Blood 11/26/2022 5:27 AM CDT 11/26/2022 6:07 AM CDT Ping Mcpherson MD COAGULATION ORDER ABLE [facility] [address] [place] [address] [phone] * ABORh Confirm (Lab Use Only) (11/26/2022 5:25 AM CDT) Group and Rh AB Positive 11/26/2022 6:33 AM CDT [facility] Blood 11/26/2022 5:25 AM CDT 11/26/2022 6:05 AM CDT Ping Mcpherson MD BLOOD BANK ORDERA BLE Performing Organization Address [facility] de Phone Number [facility] [address] [place] [id number] [place] [address] * Type & Screen (11/26/2022 3:06 AM CDT) Group and Rh AB Positive 11/26/2022 4:53 AM CDT [facility] Antibody Screen Negative 11/26/2022 4:53 AM CDT [facility] Blood 11/26/2022 3:06 AM CDT 11/26/2022 3:24 AM CDT Aspen Santoyo PA-C BLOOD BANK ORDERABLE Performing Organization Address [facility] de Phone Number [id number] [place] [address] * EKG (11/26/2022 3:04 AM CDT) Pathologist [facility] Comment: ?[facility] ? Test Date: ?2022-11-26 Pat Name: ? DARCY VALERA ?Department: ?? ED ?Room: ? ED22 Gender: ? F ?Molding Line Operator: ?? [id number] : ?1955 ? Requested By: PURA DONOVAN MD Order Number: [id number] ?Reading MD: ?? Pura Donovan MD ? Measurements Intervals ?Union ? Rate: ? 68 ? P: ?39 ID: ? [id number] ?QRS: ?13 QRSD: ? 86 ? T: ?24 QT: ? 401 ? QTc: ?428 ? Interpretive Statements Indication for EKG: ??Preop Rhythm: ??Normal sinus rhythm. ?? Morphology: ??No new ST/T changes suggestive of ischemia. Intervals: ??Normal intervals. Union: ??Normal axis. No previous ECG available for comparison Electronically Signed On 11-26-2022 3:10:00 CDT by Pura Donovan MD 11/26/2022 3:04 AM CDT Pura Donovan MD EKG ORDERABLE Performing Organization Address City/State/[facility] Co wi Phone Number [facility] [place] [address] [facility] [place] [address] * XR OUTSIDE LOWER EXTREMITY STUDY (11/26/2022 [...] 11/27/22 at 2311, muscle spasm, muscle pain metoprolol [...] Provider: Interface, Incoming Adt - Reason: Procedure)1342 (JUN Unhold - Provider: Marcos Bell, Pharm [...] 1045 (Given - Provider: David Matos APRN, KAYLEE) enoxaparin (LOVENOX) injection 40 mg 40 mg, [...] on Thu11/26/22 at 0400, Until Discontinued 0940 (JUN Hold - Provider: Interface, Incoming [...] (JUN Unhold - Provider: Interface, Incoming Adt) 0800 (Not Given - Provider: Cary Marie RN - Reason: Parent/Guardian refused - Comment: Leg has jimy wrap all around) losartan (COZAAR) tablet 25 mg 25 mg, oral, DAILY, First dose on Thu11/27/22 at 0930, Until Discontinued 59 (Given - Provid er: Cary Marie RN) melatonin tablet 3 mg 3 mg, oral, AT BEDTIME, First dose on Thu11/26/22 at 0400, Until Discontinued 0400 (Due)939 (JUN Hold - Provider: Interface, Incoming Adt - Reason: Procedure)1411 (MAR Unhold - Provider: Interface, Incoming Adt)2122 (Given - Provider: Raquel Samuels RN) metoprolol succinate (XL) (TOPROL XL) extended release tablet 24 HR 50 mg 50 mg, oral, DAILY, First dose on Thu11/27/22 at 0930, Until Discontinued 59 (Given - Provid er: Cary Marie RN) multivitamin (CERTAVITE) tablet 1 tablet 1 tablet, oral, DAILY, First dose on Thu11/26/22 at 1445, Until Discontinued 162 (Given - Provider: Raquel Samuels RN) 0849 (Given - Provider: Cary Marie RN) omeprazole (PriLOSEC) delayed release capsule 20 mg 20 mg, oral, DAILY, First dose on Thu11/26/22 at 1700, Until Discontinued 162 (Given - Provider: Raquel Samuels RN) 0849 (Given - Provider: Cary Marie RN) rosuvastatin (CRESTOR) tablet 20 mg 20 mg, oral, DAILY, First dose on Thu11/26/22 at 1445, Until Discontinued 162 (Given - Provider: Raquel Samuels RN) 0849 (Given - Provider: Cary Marie RN) sertraline (ZOLOFT) tablet 50 mg 50 mg, oral, DAILY, First dose on Thu11/26/22 at 1445, Until Discontinued 162 (Given - Provider: Raquel Samuels RN) 0855 (Given - Provider: Cary Marie RN) tranexamic acid (CYKLOKAPRON) 730 mg in sodium chloride 0.9 % 100 mL IV infusion (COMPLETED) 730 mg (rounded from 726 mg = 10 mg/kg ? 72.6 kg), Intravenous, ONCE, 1 dose, On Thu11/26/22 at 1015, All Phases, Administer over 10 Minutes 1047 (New Bag - Provider: David Matos APRN, REAL ESTATE APPRAISER) Continuous Medication Order 11/25/2022 11/26/2022 11/27/2022 lactated [...] Post-Op 1427 (New Bag - Provider: Yusra Taylor, EPIFANIO) PRN Medication Order 11/25/2022 11/26/2022 11/27/2022 saline FLUSH syringe 10 mL 10 mL, Intravenous, NEEDED, Starting on Thu11/26/22 at 0355, Until Betty 11/27/22 at 2311, Line Care 0940 ([facility] Hold - Provider: Interface, Incoming Adt - Reason: Procedure)1412 ([facility] Unhold - Provider: Interface, Incoming Adt) bisacodyl [...] at 2311, muscle spasm, muscle pain 0940 ([facility] Hold - Provider: Interface, Incoming Adt - Reason: Procedure)141 ([facility] Unhold - Provider: Interface, Incoming Adt) methocarbamoL (ROBAXIN) tablet 500 mg(Linked Group 5) 500 mg, oral, EVERY 6 HOURS NEEDED, Starting on Thu11/26/22 at 0355, Until Betty 8 at 2311, muscle spasm, muscle pain 0940 ([facility] Hold - Provider: Interface, Incoming Adt - Reason: Procedure)141 ([facility] Unhold - Provider: Interface, Incoming Adt) naloxone (NARCAN) injection 0.1 mg 0.1 mg, Intravenous, EVERY 1 MINUTE PRN, Starting on Thu11/26/22 at 1333, Until Betty 11/27/22 at 2311, Opiate Reversal ondansetron (ZOFRAN) injection 4 mg 4 mg, Intravenous, EVERY 8 HOURS NEEDED, Starting on Thu11/26/22 at 1333, Until Betty 8 at 2311, nausea & vomiting, After transfer out of recovery oxyCODONE (immediate release) (ROXICODONE) tablet 2.5-5 mg 2.5-5 mg, oral, EVERY 4 HOURS NEEDED, Starting on Thu11/26/22 at 1333, Until Betty 8 at 2311, Pain, when taking PO 1627 [...] area documented in this encounter Care Teams Half Section Ironer Relationship Specialty Start Date End Date [facility]- PCP - Primary Care Clinic 11/26/22 , Not Listed no address PCP - General Internal Medicine 11/26/22 documented as of this encounter
--- OUTSIDE RECORDS SUMMARY | 2023-05-18 02:54 | XMS_ITS | Encounter Summary ---
Author Name Unknown Organization [facility] Address [address] [place] [address] Care Team Providers Care Drapery Cutter Machine Name Role Phone Greg Bettencourt MD Primary Care Provider +1 [phone] Reason for Visit * Reason Comments RESULTS, TEST Encounter Details Date Type Department Care Team Description 06/10/2022 [facility] [address] [place], [place] [id number] Winston Brooks MD [address] [place] [place] [address] RESULTS, TEST Social History Tobacco [...] Brooks MD sent at 06/09/2022 7:28 PM CERTIFIED DIALYSIS TECHNICIAN ----- Unchanged, will discuss at upcoming appt ----- Message ----- From: Interface, In Card And Rad Results Sent: 06/09/2022 11:06 AM CERTIFIED DIALYSIS TECHNICIAN To: Winston Brooks MD IFIED DIALYSIS TECHNICIAN documented in this encounter Plan of Treatment Upcoming Encounters Date Type Department Care Team Description 05/27/2023 9:45 AM CERTIFIED DIALYSIS TECHNICIAN Appointment [facility] [address] [place], [place] [address] Hans Gasca MD [facility] [place] [address] documented as of this encounter Visit Diagnoses Not on filedocumented in this encounter Care Teams Drapery Cutter Machine Relationship Specialty Start Date End Date Greg Bettencourt MD [address] [facility] [place] [address] PCP - General 03/21/13 documented as of this encounter
--- OUTSIDE RECORDS SUMMARY | 2023-05-18 02:54 | XMS_ITS | Clinical Summary ---
Author Name Unknown Organization [facility] Address [address] [place] [address] Care Team Providers Care Kitchen Food Assembler Name Role Phone [facility] vailable Unavailable Md, Not Listed Primary [...] history exists Medical Devices Implanted Type Area Drafter Geophysical Device Identifier Shelf Expiration Date Model / Serial / Lot Nail 9mm 300mm Tib Tn Adv Rt - [id number] Implanted:Qty: 1 on 11/26/2022 by Harsh Kumari MD at [facility] Nail Left: Tibia Synthes 09/17/2032 04.043.120 S / / [id number] Pltsynt-Clvr 04/22/92/8h 241.381 - [id number] Implanted:Qty: 1 on 11/26/2022 by Harsh Kumari MD at [facility] Plate Left: Tibia Synthes 241.381 / / Scrsyn Cnc F/Th4.0/16 206.016 - [id number] Implanted:Qty: 2 on 11/26/2022 by Harsh Kumari MD at [facility] Screw/Anch or Left: Tibia Synthes 206.016 / / Advance Directives For more information, please contact: [phone] Latest Code Status on File Code Status Date Activated Date Inactivated Comments Full Code 11/26/2022 3:55 AM 11/27/2022 11:16 PM Question Answer Comments How was code status determined? Patient Care Teams Kitchen Food Assembler Relationship Specialty Start Date End Date [facility]- PCP - Primary Care Clinic 11/26/22 , Not Listed no address PCP - General Internal Medicine 11/26/22
--- OUTSIDE RECORDS SUMMARY | 2023-05-18 02:54 | XMS_ITS | Encounter Summary ---
Author Name Unknown Organization [facility] Address [address] [place] [address] Care Team Providers Care Studio Control Operator Name Role Phone Greg Bettencourt MD Primary Care Provider +1 [phone] Reason for Visit * Reason Comments Refill Encounter Details Date Type Department Care Team Description 06/05/2022 Refill [facility] [address] [place], [place] [address] Cruz Gasca MD [facility] [place] [address] Refill Social History Tobacco Use [...] Provider: CRUZ GASCA Ordering User: MARINA HUGHES ING MACHINE OPERATOR/TENDER documented in this encounter Plan of Treatment Upcoming Encounters Date Type Department Care Team Description 05/27/2023 9:45 AM SLICING MACHINE OPERATOR/TENDER Appointment [facility] [address] [place] [address] Cruz Gasca MD [address] [place] [address] documented as of this encounter Visit Diagnoses Not on filedocumented in this encounter Care Teams Studio Control Operator Relationship Specialty Start Date End Date Greg Bettencourt MD [address] [place] [address] PCP - General 03/21/13 documented as of this encounter
--- OUTSIDE RECORDS SUMMARY | 2023-05-18 02:54 | XMS_ITS | Referral Summary ---
Author Name Unknown Organization [facility] Address [address] [place] [address] Care Team Providers Care Joggle Press Operator Name Role Phone [facility] vailable Unavailable Md, [...] on file Medical Devices Implanted Type Area Operations Mgr Device Identifier Shelf Expiration Date Model / Serial / Lot Nail 9mm 300mm Tib Tn Adv Rt - [id number] Implanted:Qty: 1 on 11/26/2022 by Harsh Kumari MD at [facility] Nail Left: Tibia Synthes 09/17/2032 04.043.120 S / / [id number] Pltsynt-Clvr 04/22/92/8h 241.381 - [id number] Implanted:Qty: 1 on 11/26/2022 by Harsh Kumari MD at [facility] Plate Left: Tibia Synthes 241.381 / / Scrsyn Cnc F/Th4.0/16 206.016 - [id number] Implanted:Qty: 2 on 11/26/2022 by Harsh Kumari MD at [facility] Screw/Anch or Left: Tibia Synthes 206.016 / / Advance Directives For more information, please contact: [phone] Latest Code Status on File Code Status Date Activated Date Inactivated Comments Full Code 11/26/2022 3:55 AM 11/27/2022 11:16 PM Question Answer Comments How was code status determined? Patient Care Teams Joggle Press Operator Relationship Specialty Start Date End Date [facility]- PCP - Primary Care Clinic 11/26/22 , Not Listed no address PCP - General Internal Medicine 11/26/22
--- OUTSIDE RECORDS SUMMARY | 2023-05-18 02:54 | XMS_ITS | Encounter Summary ---
Author Name Unknown Organization [facility] Address [address] [place] [address] Care Team Providers Care Grape Crusher Name Role Phone Greg Bettencourt MD Primary Care Provider +1 [phone] Encounter Details Date Type Department Care Team Description 11/11/2022 10:00 AM CDT Lab Visit [facility] [address] [place] [address] Inflammatory polyarthropathy (HRC) Social History Tobacco Use [...] Department Care Team Description 05/27/2023 9:45 AM OPERATING SYSTEMS PROGRAMMER Appointment [facility] [address] [place] [address] Hans Gasca MD [address] [place] [id number] documented as of this encounter Procedures Procedure [...] Blood Count-W/Diff (11/11/2022 9:54 AM CDT) Pathologist [facility] WBC 8.5 3.5 - 10.5 x10(9)/L 11/11/2022 10:[address] [facility] RBC 3.79(L) 3.90 - 5.03 x10(12)/L 11/11/2022 10:[address] [facility] Hemoglobin 12.9 12.0 - 15.5 g/dL 11/11/2022 10:[address] [facility] HCT 38.9 34.9 - 44.5 % 11/11/2022 10:[address] [facility] MCV 102.6(H) 80.0 - 100.0 fL 11/11/2022 10:[address] [facility] MCH 34.0(H) 27.6 - 33.3 pg 11/11/2022 10:[address] [facility] MCHC 33.2 31.5 - 35.2 g/dL 11/11/2022 10:[address] [facility] RDW 13.9 11.9 - 15.5 % 11/11/2022 10:[address] [facility] Platelets 243 150 - 450 x10(9)/L 11/11/2022 10:[address] [facility] Automated NRBC 0 <=0 /100 WBC 11/11/2022 10:[address] [facility] Neutrophil Absolute 5.5 1.7 - 7.0 10(9)/L 11/11/2022 10:[address] [facility] Lymphocyte Absolute 1.9 1.0 - 4.8 10(9)/L 11/11/2022 10:[address] [facility] Monocyte Absolute 0.8 0.2 - 0.9 10(9)/L 11/11/2022 10:07 AM [facility] Eosinophil Absolute 0.2 0.0 - 0.5 10(9)/L 11/11/2022 10:07 AM [facility] Basophil Absolute 0.1 0.0 - 0.3 10(9)/L 11/11/2022 10:[address] [facility] Immature Granulocyte % 0.6(H) 0.0 - 0.5 % 11/11/2022 10:07 AM [facility] Blood Venipuncture / Unknown 11/11/2022 9:54 AM CDT 11/11/2022 9:54 AM CDT Hans Gasca MD LAB_1 Performing Organization Address City/[facility]/ZIP Co de Phone Number [facility] [address] [place] [address], [facility] [phone] * AST (11/11/2022 9:54 AM CDT) AST (SGOT) 30 10 - 40 U/L 11/11/2022 11:05 AM [facility] Blood Venipuncture / Unknown 11/11/2022 9:54 AM CDT 11/11/2022 9:54 AM CDT Hans Gasca MD LAB_1 Performing Organization Address City/[facility]/ZIP Co de Phone Number [facility] [address] [place] [address], [facility] [phone] * Creatinine / GFR (11/11/2022 9:54 AM CDT) Creatinine 0.70 0.55 - 1.02 mg/dL 11/11/2022 11:05 AM [facility] GFR, Estimated >60 >60 mL/min/1.7 3m2 11/11/2022 11:05 AM [facility] Blood Venipuncture / Unknown 11/11/2022 9:54 AM CDT 11/11/2022 9:54 AM CDT Hans Gasca MD LAB_1 [facility] [address] [place] [address], [facility] [phone] documented in this encounter Visit Diagnoses Diagnosis Inflammatory polyarthropathy (HRC) Unspecified inflammatory polyarthropathy documented in this encounter Care Teams Grape Crusher Relationship Specialty Start Date End Date Greg Bettencourt MD [address] [place] [address] PCP - General 03/21/13 documented as of this encounter
--- OUTSIDE RECORDS SUMMARY | 2023-05-18 02:54 | XMS_ITS | Encounter Summary ---
Author Name Unknown Organization [facility] Address [address] [place] [address] Care Team Providers Care Hse Advisor Name Role Phone Greg Bettencourt MD Primary Care Provider +1 [phone] Encounter Details Date Type Department Care Team Description 08/18/2022 1:50 PM CDT Lab Visit [facility] [address] [place] [address] Inflammatory polyarthropathy (HRC) Social History Tobacco Use [...] Department Care Team Description 05/27/2023 9:45 AM RARE/ENDANGERED SPECIES SPECIALIST Appointment [facility] [address] [place] [address] Hans Gasca MD [address] [place] [id number] documented as of this encounter Procedures Procedure [...] Complete Blood Count-W/Diff (08/18/2022 1:48 PM CDT) [facility] WBC 8.1 3.5 - 10.5 x10(9)/L 08/18/2022 1:56 PM [facility] RBC 3.65(L) 3.90 - 5.03 x10(12)/L 08/18/2022 1:56 PM [facility] Hemoglobin 12.7 12.0 - 15.5 g/dL 08/18/2022 1:56 PM [facility] HCT 37.7 34.9 - 44.5 % 08/18/2022 1:56 PM [facility] MCV 103.3(H) 80.0 - 100.0 fL 08/18/2022 1:56 PM [facility] MCH 34.8(H) 27.6 - 33.3 pg 08/18/2022 1:56 PM [facility] MCHC 33.7 31.5 - 35.2 g/dL 08/18/2022 1:56 PM [facility] RDW 12.6 11.9 - 15.5 % 08/18/2022 1:56 PM [facility] Platelets 265 150 - 450 x10(9)/L 08/18/2022 1:56 PM [facility] Automated NRBC 0 <=0 /100 WBC 08/18/2022 1:56 PM [facility] Neutrophil Absolute 5.1 1.7 - 7.0 10(9)/L 08/18/2022 1:56 PM [facility] Lymphocyte Absolute 1.7 1.0 - 4.8 10(9)/L 08/18/2022 1:56 PM [facility] Monocyte Absolute 1.1(H) 0.2 - 0.9 10(9)/L 08/18/2022 1:56 PM CDT [facility] Eosinophil Absolute 0.2 0.0 - 0.5 10(9)/L 08/18/2022 1:56 PM CDT [facility] Basophil Absolute 0.1 0.0 - 0.3 10(9)/L 08/18/2022 1:56 PM CDT [facility] Immature Granulocyte % 0.4 0.0 - 0.5 % 08/18/2022 1:56 PM CDT [facility] Blood Venipuncture / Unknown 08/18/2022 1:48 PM CDT 08/18/2022 1:48 PM CDT Hans Gasca MD LAB_1 Performing Organization Address City/[facility]/ZIP Co de Phone Number [facility] [address] [place] [phone], [facility] [phone] * AST (08/18/2022 1:48 PM CDT) AST (SGOT) 33 10 - 40 U/L 08/18/2022 7:01 PM CDT [facility] Blood Venipuncture / Unknown 08/18/2022 1:48 PM CDT 08/18/2022 1:48 PM CDT Hans Gasca MD LAB_1 Performing Organization Address City/[facility]/ZIP Co de Phone Number [facility] [address] [place] [phone], [facility] [phone] * Creatinine / GFR (08/18/2022 1:48 PM CDT) Creatinine 0.70 0.55 - 1.02 mg/dL 08/18/2022 7:01 PM CDT [facility] GFR, Estimated >60 >60 mL/min/1.7 3m2 08/18/2022 7:01 PM CDT [facility] Blood Venipuncture / Unknown 08/18/2022 1:48 PM CDT 08/18/2022 1:48 PM CDT Hans Gasca MD LAB_1 [facility] [address] [place] [address], [facility] [phone] documented in this encounter Visit Diagnoses Diagnosis Inflammatory polyarthropathy (HRC) Unspecified inflammatory polyarthropathy documented in this encounter Care Teams Hse Advisor Relationship Specialty Start Date End Date Greg Bettencourt MD [address] [place] [address] PCP - General 03/21/13 documented as of this encounter
--- OUTSIDE RECORDS SUMMARY | 2023-05-18 02:54 | XMS_ITS | Encounter Summary ---
Author Name Unknown Organization [facility] Address [address] [place] [address] Care Team Providers Care Title One Kindergarten Teacher Name Role Phone Greg Bettencourt MD Primary Care Provider +1 [phone] Reason for Visit * Reason Comments Other Thoracic Aortic Aneu rysm * Procedure/Equipment (Routine) - Closed Specialty Diagnoses / Procedures Referred By Fide t Referred To Contact Diagnoses Thoracic aortic aneurysm without rupture (HRC) Procedures Echocardiogram Winston Epps MD [address] [place] [address] Referral ID Status Reason Start Date Expiration Date Visits Re quested Visits Authorized [id number] Closed 09/20/2021 12/20/2022 1 1 Encounter Details Date Type Department Care Team Description 06/09/2022 10:00 AM URBAN PLANNING PROFESSOR Procedure Visit [facility] [address] Noninvasive Cardiology [address] [place] [address] Other (Thoracic Aortic Aneurysm) Social [...] - 06/09/2022 10:00 AM CST Test completed. N PLANNING PROFESSOR documented in this encounter Plan of Treatment Upcoming Encounters Date Type Department Care Team Description 05/27/2023 9:45 AM URBAN PLANNING PROFESSOR Appointment [facility] [address] [place] [address] Hans Gasca MD [facility] [place] [address] documented as of this encounter Procedures Procedure Name Priority Date/Time Associated Diagnosis Comments ECHOCARDIOGRAM Routine 06/09/2022 9:49 AM URBAN PLANNING PROFESSOR Thoracic aortic aneurysm without rupture, unspecified part documented in this encounter Results * Echocardiogram (06/09/2022 9:49 AM URBAN PLANNING PROFESSOR) 06/09/2022 9:49 AM URBAN PLANNING PROFESSOR Narrative PN ECHO - 06/09/2022 11:05 AM URBAN PLANNING PROFESSOR ECHOCARDIOGRAM. Date: 06/09/2022 Start: 09:49 AM Facility: [facility] CONCLUSIONS Left ventricular ejection fraction is visually [...] Butler Room Number ? OUTPT Patient ? [id number] ?Date of Study ? 06/09/2022 Number Accession ? [id number] ?Interpreting ?JOSEFA MIKE MD Number ?Provider Date of 1955 ?Ordering Provider WINSTON Bryan ? MD MICH Primary ? WINSTON Bryan ? Milling General Superintendent ? [facility] Provider ?MD MICH The procedure was explained in detail to the patient. Risks, complications and alternative treatments were reviewed. Informed consent was obtained. Procedure Note Josefa Mike MD - 06/09/2022 ECHOCARDIOGRAM. Date: 06/09/2022 Start: 09:49 AM Facility: [facility] Left ventricular ejection fraction is visually estimated [...] Name MORAIMA Butler Room Number OUTPT Patient [id number] Date of Study 06/09/2022 Number Interpreting JOSEFA MIKE MD Number Provider Date of 1955 Ordering Provider WINSTON EPPS MD Primary WINSTON Bryan Milling General Superintendent JS, [facility] Provider MD MICH The procedure was explained in detail to the patient. Risks, complications and alternative treatments were reviewed. Informed consent was obtained. Winston Epps MD ET ECHO ORDERABLE S PN ECHO documented in this encounter Visit Diagnoses Diagnosis Thoracic aortic aneurysm without rupture, unspecified part (HRC) documented in this encounter Care Teams Title One Kindergarten Teacher Relationship Specialty Start Date End Date Greg Bettencourt MD [address] [place] [address] PCP - General 03/21/13 documented as of this encounter
--- OUTSIDE RECORDS SUMMARY | 2023-05-18 02:54 | XMS_ITS | Encounter Summary ---
Author Name Unknown Organization [facility] Address [address] [place] [address] Care Team Providers Care Emergency Doctor Name Role Phone Greg Bettencourt MD Primary Care Provider [phone] [phone] Reason for Visit * Reason Comments Refill Encounter Details Date Type Department Care Team Description 12/03/2015 Refill [facility] [address] [place], [place] [address] Hans Gasca MD [address] [place] [address] Refill Social History Tobacco Use Types Packs/Day Years Used Date Smoking Tobacco: Never Assessed Sex and Gender Information Value Date Recorded Sex Assigned at Not on file Gender Identity Not on file Sexual Orientation Not on file documented as of this encounter Nursing Notes * Geraldnie Berry RN - 12/04/2015 8:40 AM CDT [...] Department Care Team Description 05/27/2023 9:45 AM HR LEADER Appointment [facility] [address] [place] [address] Hans Gasca MD [address] [place] [address] documented as of this encounter Visit Diagnoses Not on filedocumented in this encounter Care Teams Emergency Doctor Relationship Specialty Start Date End Date Greg Bettencourt MD [address] [place] [address] PCP - General 03/21/13 documented as of this encounter
--- OUTSIDE RECORDS SUMMARY | 2023-05-18 02:54 | XMS_ITS | Encounter Summary ---
Author Name Unknown Organization [facility] Address [address] [place] [address] Care Team Providers Care Mobile Application Tester Name Role Phone Greg Bettencourt MD Primary Care Provider [phone] [phone] Reason for Referral * Procedure/Equipment (Routine) - New Request Specialty Diagnoses / Procedures Referred By Contac t Referred To Contact Diagnoses Thoracic aortic aneurysm without rupture, unspecified part (HRC) Procedures Echocardiogram Winston Brooks MD [address] [place] [address] Referral ID Status Reason Start Date Expiration Date V isits Requested Visits Authorized [id number] New Request 05/22/2025 08/21/2026 1 1 FERTILITY EXTENSION SPECIALIST Reason for Visit * Reason Comments Follow-up Encounter Details Date Type Department Care Team Description 06/16/2022 2:45 PM SOIL FERTILITY EXTENSION SPECIALIST Office Visit [facility] [address] [facility] [address] [place] [address] Winston Brooks MD [address] [place] [address] Nurse, Cardiology II Bv Thoracic [...] Comments Blood Pressure 118/80 06/16/2022 2:57 PM SOIL FERTILITY EXTENSION SPECIALIST Pulse 74 06/16/2022 2:57 PM SOIL FERTILITY EXTENSION SPECIALIST Temperature - - Respiratory Rate - - Oxygen Saturation - - Inhaled Oxygen Concentration - - Weight 74.5 kg (164 lb 4 oz) 06/16/2022 2:57 PM SOIL FERTILITY EXTENSION SPECIALIST Height 162.6 cm (5' 4) 06/16/2022 2:57 PM SOIL FERTILITY EXTENSION SPECIALIST Body Mass Index 28.19 06/16/2022 2:57 PM SOIL FERTILITY EXTENSION SPECIALIST documented in this encounter Progress Notes * Winston Brooks MD - 06/16/2022 2:45 PM CST Images from the original note were not included. General Cardiology Clinic follow-up KELLY CAMEJO : 1955 CSN: [id number] Date of Service: 06/16/2022 History of present [...] (162.6 cm) Wt 164 lb 4 oz (96230 g) BMI 28.19 kg/m?? No exam performed. [...] Brooks MD 06/16/2022 3:14 PM Cardiology Department FERTILITY EXTENSION SPECIALIST documented in this encounter Plan of Treatment Upcoming Encounters Date Type Department Care Team Description 05/27/2023 9:45 AM SOIL FERTILITY EXTENSION SPECIALIST Appointment [facility] [address] [place], [place] [address] Hans Gasca MD [facility] [place], [place] [id number] documented as of this encounter Visit Diagnoses Diagnosis Thoracic aortic aneurysm without rupture, unspecified part (HRC)- Primary documented in this encounter Care Teams Mobile Application Tester Relationship Specialty Start Date End Date Greg Bettencourt MD [address] [place] [address] PCP - General 03/21/13 documented as of this encounter
--- OUTSIDE RECORDS SUMMARY | 2023-05-18 02:55 | XMS_ITS | Encounter Summary ---
Author Name Unknown Organization [facility] Address [address] [place] [address] Care Team Providers Care Mixer Pigment Name Role Phone [facility] vailable Unavailable Md, Not Listed Primary [...] on filedocumented in this encounter Care Teams Mixer Pigment Relationship Specialty Start Date End Date [facility]- PCP - Primary Care Clinic 11/26/22 Md, Not Listed no address PCP - General Internal Medicine 11/26/22 documented as of this encounter
--- OUTSIDE RECORDS SUMMARY | 2023-05-18 02:55 | XMS_ITS ---
Author Name Unknown Organization [facility] Address [address] [place] [address] Care Team Providers Care Soda Dispenser Name Role Phone [facility] vailable Unavailable Md, Not Listed Primary Care Provider Unavailabl e Transitional Care Management Status:Enrolled (Active) Start date:11/27/2022 Enrollment date:11/28/2022 Related social determinants of health:Social Connections, Alcohol Use, Tobacco Use, Financial Resource Strain, Depression, Stress, Physical Activity, Transportation Needs Overview Transitional Care Management (TCM) is a [facility] Program designed to decrease risk and increase continuity of care for patients after discharge. Continued Care and Services Coordination
== END 2023-05-13 10:58 | disposition home or self-care (01) ==
LOC: NFLDREF 05-18 02:51
PROVIDERS: PCP Physician Assistant Medical; Referring Provider Physician Assistant Medical; Visit Provider Emergency Medicine
DX: R71.8 Other abnormality of red blood cells (principal)
CPT/HCPCS: 82746

== ENCOUNTER 2023-10-01 11:15 | Outpatient (CLI) | payer MEDICARE, BC, SELFPAY ==
--- OUTSIDE RECORDS SUMMARY | 2023-10-01 11:18 | XMS_ITS | Encounter Summary ---
Author Organization [facility] Address [address] [place] [address] Care Team Providers Care Business Liaison Manager Name Role Phone Greg Bettencourt MD Primary Care Provider [phone] [phone] Encounter Details Date Type Department Care Team (Late st Contact Info) Description 05/22/2023 [facility] [address] [facility] [place] [address] Mychart, [place] [address] Social History Tobacco Use Types Packs/Day Years [...] Upcoming Encounters Date Type Department Care Team (Late st Contact Info) Description 11/30/2023 2:45 PM CDT Appointment [facility] [address] [place], [place] [phone] Hans Gasca MD [address] [place], [place] [phone] documented as of this encounter Visit Diagnoses Not on filedocumented in this encounter Care Teams Business Liaison Manager Relationship Specialty Start Date End Date Greg Bettencourt MD [address] [place] [address] PCP - General 03/21/13 documented as of this encounter
--- OUTSIDE RECORDS SUMMARY | 2023-10-01 11:18 | XMS_ITS | Clinical Summary ---
Author Organization [facility] Address [address] [place] [address] Care Team Providers Care Top Dyeing Machine Tender Name Role Phone Md, Not Listed Primary Care Provider Unavailabl e Allergies No known active allergies Medications Medication Sig Dispensed Refills Start Date End Date Status calcium carbonate, 600 mg elemental calcium, 600 mg calcium (1,500 mg) oral tablet Take 1 tablet by mouth once daily. Active celecoxib (CELEBREX) 200 mg oral capsule Take 1 capsule (200 mg) by mouth once daily. Active folic acid (FOLVITE) 1 mg oral tablet Take 1 tablet (1 mg) by mouth once daily. Active methotrexate (TREXALL) 2.5 mg oral tablet Take 7 tablets (17.5 mg) by mouth every 7 (seven) days. Tuesdays Active multivitamin (CERTAVITE) 18-400 mg-mcg oral tablet Take 1 tablet by mouth once daily. Active amLODIPine (NORVASC) 10 mg oral tablet Take 1 tablet (10 mg) by mouth once daily. Active metoprolol succinate, XL, (TOPROL XL) 50 mg oral extended release tablet 24 HR Take 1 tablet (50 mg) by mouth once daily. Active omeprazole (PRILOSEC) 20 mg oral delayed release capsule Take 1 capsule (20 mg) by mouth once daily. Active rosuvastatin (CRESTOR) 20 mg oral tablet Take 1 tablet (20 mg) by mouth once daily. Active sertraline (ZOLOFT) 50 mg oral tablet Take 1 tablet (50 mg) by mouth once daily. Active losartan (COZAAR) 25 mg oral tablet Take 1 tablet (25 mg) by mouth once daily. Active oxyCODONE, immediate release, (ROXICODONE) 5 mg oral tablet Take 1 tablet (5 mg) by mouth every 4 (four) hours as needed. 15 tablet 11/27/2022 Active acetaminophen (TYLENOL) 500 mg oral tablet Take 2 tablets (1,000 mg) by mouth every 8 (eight) hours as needed for pain. 11/27/2022 Active senna-docusate (SENNA-S) 8.6-50 mg oral [...] Due Date Last Done Comments Colonoscopy 1955 Hepatitis C Screening 1955 Mammogram Screening 1955 Osteoporosis Screening 1953 Depression Assessment (PHQ-2) 1954 Yearly Review of HCD 2003 RSV 60+ Yrs (1 - 1-dose 60+ series) 2013 Pneumococcal 65+ (2 of 2 - PCV) 04/02/2022 COVID-19 Vaccine (2022-2 4 season) 2022 03/25/2022, 02/14/2021, 07/17/2020, Additional history exists Influenza Vaccine (Season Ended) 2023 01/14/2022, 01/21/2021, 01/02/2019, Additional history exists Diabetes Screening 11/27/2025 11/27/2022, 11/26/2022 Adult Tetanus Booster 04/02/2031 04/02/2021, 011 Zoster Vaccine Completed 12/04/2017, 08/18, 08/04/2017, Additional history exists Medical Devices Implanted Type Area Aquaculture Director Device Identifier Shelf Expiration Date Model / Serial / Lot Nail 9mm 300mm Tib Tn Adv Rt - [id number] Implanted:Qty: 1 on 11/26/2022 by Harsh Kumari MD at [facility] Nail Left: Tibia Synthes 09/17/2032 04.043.120 S / / [id number] Pltsynt-Clvr 04/22/92/8h 241.381 - [id number] Implanted:Qty: 1 on 11/26/2022 by Harsh Kumari MD at [facility] Plate Left: Tibia Synthes 241.381 / / Scrsyn Cnc F/Th4.0/16 206.016 - [id number] Implanted:Qty: 2 on 11/26/2022 by Harsh Kumari MD at [facility] Screw/Anch or Left: Tibia Synthes 206.016 / / Scr Syn Cnn S/T 4.0/40 207.640 - [id number] Implanted:Qty: 1 on 11/26/2022 by Harsh Kumari MD at [facility] Screw/Anch or Left: Tibia Synthes 207.640 / / Scr Syn Cnn S/T 4.0/34 207.634 - [id number] Implanted:Qty: 1 on 11/26/2022 by Harsh Kumari MD at [facility] Screw/Anch or Left: Tibia Synthes 207.634 / / Scr 26mm 5mm Bn Tn Lck X25 - [id number] Implanted:Qty: 2 on 11/26/2022 by Harsh Kumari MD at [facility] Screw/Anch or Left: Tibia Synthes 04.045.026 / / Scr 28mm 5mm Bn Tn Lck X25 - [id number] Implanted:Qty: 1 on 11/26/2022 by Harsh Kumari MD at [facility]/Anch or Left: Tibia Synthes 04.045.028 / / Scr 38mm 5mm Bn Ti Niobium Al - [id number] Implanted:Qty: 1 on 11/26/2022 by Harsh Kumari MD at [facility]/Anch or Left: Tibia Synthes 04.045.038 / / Scr Syn Crtx S/T3.08/29 204.812 - [id number] Implanted:Qty: 3 on 11/26/2022 by Harsh Kumari MD at [facility]/Anch or Left: Tibia Synthes 204.812 / / Scr Syn Crtx S/T3.09/02 204.816 - [id number] Implanted:Qty: 1 on 11/26/2022 by Harsh Kumari MD at [facility]/Anch or Left: Tibia Synthes 204.816 / / Scr Syn Crtx S/T3.09/04 204.818 - [id number] Implanted:Qty: 1 on 11/26/2022 by Harsh Kumari MD at [facility]/Anch or Left: Tibia Synthes 204.818 / / Procedures Procedure Name Priority Date/Time Associated Diagnosis Comments BASIC METAB PROFILE Routine 11/27/2022 6 :58 AM CDT from Last 3 Months or Most Recently Relevant to Health Maintenance Results * (ABNORMAL) Basic Metab Profile (11/27/2022 6:58 AM CDT) Sodium 140 136 - 145 mmol/L ATELLICA ANALYZER 11/27/2022 7:59 AM CDT [facility] Potassium 3.8 3.4 - 5.1 mmol/L ATELLICA ANALYZER 11/27/2022 7:59 AM CDT [facility] Chloride 107 98 - 108 mmol/L ATELLICA ANALYZER 11/27/2022 7:59 AM CDT [facility] Carbon Dioxide 27 20 - 31 mmol/L ATELLICA ANALYZER 11/27/2022 7:59 AM CDT [facility] BUN (Urea Nitro) 9 9 - 23 mg/dL ATELLICA ANALYZER 11/27/2022 7:59 AM CDT [facility] Creatinine 0.65 0.55 - 1.02 mg/dL ATELLICA ANALYZER 11/27/2022 7:59 AM CDT [facility] Est GFR (CKD-EPI) >60.00 >60.00 mL/min/1. 73m2 ATELLICA ANALYZER 11/27/2022 7:59 AM CDT [facility] Comment:Calculation based on the Chronic Kidney Disease Epidemiology Collaboration (CKD-EPI) equation refit without adjustment for race. Glucose 107(H) 74 - 106 mg/dL ATELLICA ANALYZER 11/27/2022 7:59 AM CDT [facility] Calcium, Serum 9.5 8.7 - 10.4 mg/dL ATELLICA ANALYZER 11/27/2022 7:59 AM CDT [facility] Anion Gap 6.0 0.0 - 15.0 mmol/L ATELLICA ANALYZER 11/27/2022 7:59 AM CDT [facility] Blood 11/27/2022 6:58 AM CDT 11/27/2022 7:30 AM CDT Ping Mcpherson MD CHEMISTRY ORDERAB LE [facility] [address] [place] [address] from Last 3 Months or Most Recently Relevant to Health Maintenance Advance Directives For more information, please contact: [phone] * Full Code (Latest Code Status on File) Date Activated Date Inactivated Comments 11/26/2022 3:55 AM 11/27/2022 11:16 PM Question Answer Comments How was code status determined? Patient Care Teams Top Dyeing Machine Tender Relationship Specialty Start Date End Date Md, Not Listed no address PCP - General Internal Medicine 11/26/22
--- OUTSIDE RECORDS SUMMARY | 2023-10-01 11:18 | XMS_ITS | Encounter Summary ---
Author Organization [facility] [place] Address [address] [place] [address] Care Team Providers Care Claim Approver Name Role Phone Greg Bettencourt MD Primary Care Provider [phone] [phone] Encounter Details Date Type Department Care Team (Late st Contact Info) Description 08/26/2023 10:20 AM CDT Lab Visit [facility] [address] [place] [address] Inflammatory polyarthropathy (HRC) Social History Tobacco Use [...] Info) Description 11/30/2023 2:45 PM CDT Appointment [facility] [address] [place], [place] [address] Hans Gasca MD [address] [place] [address] [phone] documented as of this encounter Procedures Procedure Name Priority Date/Time Associated Diagnosis Comments CBC AND DIFFERENTIAL PANEL Routine 08/26/2023 10:37 AM CDT Inflammatory polyarthropathy (HRC) CREATININE / GFR Routine 08/26/2023 10:3 7 AM CDT Inflammatory polyarthropathy (HRC) COMPLETE BLOOD COUNT-W/DIFF Routine 08/26/2023 10:37 AM CDT Inflammatory polyarthropathy (HRC) AST Routine 08/26/2023 10:37 AM CDT Inflammatory polyarthropathy (HRC) documented in this encounter Results * (ABNORMAL) Complete Blood Count-W/Diff (08/26/2023 10:37 AM CDT) [facility] WBC 5.9 3.5 - 10.5 x10(9)/L 08/26/2023 10:39 AM T [facility] RBC 3.67(L) 3.90 - 5.03 x10(12)/L 08/26/2023 10:39 AM [facility] Hemoglobin 12.5 12.0 - 15.5 g/dL 08/26/2023 10:39 AM [facility] HCT 37.5 34.9 - 44.5 % 08/26/2023 10:39 AM [facility] MCV 102.2(H) 80.0 - 100.0 fL 08/26/2023 10:39 AM [facility] MCH 34.1(H) 27.6 - 33.3 pg 08/26/2023 10:39 AM [facility] MCHC 33.3 31.5 - 35.2 g/dL 08/26/2023 10:39 AM [facility] RDW 13.2 11.9 - 15.5 % 08/26/2023 10:39 AM [facility] Platelets 212 150 - 450 x10(9)/L 08/26/2023 10:39 AM [facility] Automated NRBC 0 <=0 /100 WBC 08/26/2023 10:39 AM [facility] Neutrophil Absolute 4.0 1.7 - 7.0 10(9)/L 08/26/2023 10:39 AM [facility] Lymphocyte Absolute 1.2 1.0 - 4.8 10(9)/L 08/26/2023 10:39 AM [facility] Monocyte Absolute 0.5 0.2 - 0.9 10(9)/L 08/26/2023 10:39 AM CDT [facility] Eosinophil Absolute 0.2 0.0 - 0.5 10(9)/L 08/26/2023 10:39 AM [facility] Basophil Absolute 0.0 0.0 - 0.3 10(9)/L 08/26/2023 10:39 AM [facility] Immature Granulocyte % 0.3 0.0 - 0.5 % 08/26/2023 10:39 AM [facility] Blood Venipuncture / Unknown 08/26/2023 10:37 AM CDT 08/26/2023 10:37 AM CDT Hans Gasca MD LAB_1 Performing Organization Address City/[facility]/ZIP Co de Phone Number [address] * AST (08/26/2023 10:37 AM CDT) AST (SGOT) 32 10 - 40 U/L 08/26/2023 12:37 PM T [facility] Blood Venipuncture / Unknown 08/26/2023 10:37 AM CDT 08/26/2023 10:37 AM CDT Hans Gasca MD LAB_1 Performing Organization Address City/[facility]/ZIP Co de Phone Number [address] * Creatinine / GFR (08/26/2023 10:37 AM CDT) Creatinine 0.65 0.55 - 1.02 mg/dL 08/26/2023 12:37 PM [facility] GFR, Estimated >60 >60 mL/min/1.7 3m2 08/26/2023 12:37 PM [facility] Blood Venipuncture / Unknown 08/26/2023 10:37 AM CDT 08/26/2023 10:37 AM CDT Hans Gasca MD LAB_1 [facility] [address] [place] [address], [facility] documented in this encounter Visit Diagnoses Diagnosis Inflammatory polyarthropathy (HRC) Unspecified inflammatory polyarthropathy documented in this encounter Care Teams Claim Approver Relationship Specialty Start Date End Date Greg Bettencourt MD [address] [place] [address] PCP - General 03/21/13 documented as of this encounter
--- OUTSIDE RECORDS SUMMARY | 2023-10-01 11:18 | XMS_ITS | Encounter Summary ---
Author Organization [facility] Address [address] [place] [address] Care Team Providers Care Jail Guard Name Role Phone Greg Bettencourt MD Primary Care Provider [phone] Reason for Visit * Reason Comments Refill Encounter Details Date Type Department Care Team (Late Contact Info) Description 12/03/2015 Refill [facility] [address] [place], [place] [id number] Hans Gasca MD [address] [place] [address] Refill Social History Tobacco Use Types [...] Info) Description 11/30/2023 2:45 PM CDT Appointment [facility] [address] [place] [address] Hans Gasca MD [address] [place] [address] documented as of this encounter Visit Diagnoses Not on filedocumented in this encounter Care Teams Jail Guard Relationship Specialty Start Date End Date Greg Bettencourt MD [address] [place] [address] PCP - General 03/21/13 documented as of this encounter
--- OUTSIDE RECORDS SUMMARY | 2023-10-01 11:18 | XMS_ITS | Referral Summary ---
Author Organization [facility] Address [address] [place] [address] Care Team Providers Care Piper Helper Name Role Phone Md, Not Listed Primary [...] on file Medical Devices Implanted Type Area Business Planner Device Identifier Shelf Expiration Date Model / Serial / Lot Nail 9mm 300mm Tib Tn Adv Rt - [id number] Implanted:Qty: 1 on 11/26/2022 by Harsh Kumari MD at [facility] Nail Left: Tibia Synthes 09/17/2032 04.043.120 S / / [id number] Pltsynt-Clvr 04/22/92/8h 241.381 - [id number] Implanted:Qty: 1 on 11/26/2022 by Harsh Kumari MD at [facility] Plate Left: Tibia Synthes 241.381 / / Scrsyn Cnc F/Th4.0/16 206.016 - [id number] Implanted:Qty: 2 on 11/26/2022 by Harsh Kumari MD at [facility]/Anch or Left: Tibia Synthes 206.016 / / Scr Syn Cnn S/T 4.0/40 207.640 - [id number] Implanted:Qty: 1 on 11/26/2022 by Harsh Kumari MD at [facility]/Anch or Left: Tibia Synthes 207.640 / / Scr Syn Cnn S/T 4.0/34 207.634 - [id number] Implanted:Qty: 1 on 11/26/2022 by Harsh Kumari MD at [facility]/Anch or Left: Tibia Synthes 207.634 / / Scr 26mm 5mm Bn Tn Lck X25 - [id number] Implanted:Qty: 2 on 11/26/2022 by Harsh Kumari MD at [facility] or Left: Tibia Synthes 04.045.026 / / Scr 28mm 5mm Bn Tn Lck X25 - [id number] Implanted:Qty: 1 on 11/26/2022 by Harsh Kumari MD at [facility]/Anch or Left: Tibia Synthes 04.045.028 / / Scr 38mm 5mm Bn Ti Niobium Al - [id number] Implanted:Qty: 1 on 11/26/2022 by Harsh Kumari MD at [facility]/Anch or Left: Tibia Synthes 04.045.038 / / Scr Syn Crtx S/T3.5 204.812 - [id number] Implanted:Qty: 3 on 11/26/2022 by Harsh Kumari MD at [facility]/Anch or Left: Tibia Synthes 204.812 / / Scr Syn Crtx S/T3.09/02 204.816 - [id number] Implanted:Qty: 1 on 11/26/2022 by Hasrh Kumari MD at [facility] Screw/Anch or Left: Tibia Synthes 204.816 / / Scr Syn Crtx S/T3.518 204.818 - [id number] Implanted:Qty: 1 on 11/26/2022 by Harsh Kumari MD at [facility] Screw/Anch or Left: Tibia Synthes 204.818 / / Procedures Procedure Name Priority Date/Time Associated Diagnosis Comments BASIC METAB PROFILE Routine 11/27/2022 6 :58 AM CDT from Last 3 Months or Most Recently Relevant to Health Maintenance Results * (ABNORMAL) Basic Metab Profile (11/27/2022 6:58 AM CDT) Sodium 140 136 - 145 mmol/L [facility]ELLICA ANALYZER [facility] Potassium 3.8 3.4 - 5.1 mmol/L ATELLICA ANALYZER 11/27/2022 7:59 AM [facility] Chloride 107 98 - 108 mmol/L ATELLICA ANALYZER 11/27/2022 7:59 AM [facility] Carbon Dioxide 27 20 - 31 mmol/L ATELLICA ANALYZER 11/27/2022 7:59 AM [facility] BUN (Urea Nitro) 9 9 - 23 mg/dL ATELLICA ANALYZER 11/27/2022 7:59 AM [facility] Creatinine 0.65 0.55 - 1.02 mg/dL ATELLICA ANALYZER 11/27/2022 7:59 AM [facility] Est GFR (CKD-EPI) >60.00 >60.00 mL/min/1. 73m2 ATELLICA ANALYZER 11/27/2022 7:59 AM [facility] Comment:Calculation based on the Chronic Kidney Disease Epidemiology Collaboration (CKD-EPI) equation refit without adjustment for race. Glucose 107(H) 74 - 106 mg/dL ATELLICA ANALYZER 11/27/2022 7:59 AM CDT [facility] Calcium, Serum 9.5 8.7 - 10.4 mg/dL ATELLICA ANALYZER 11/27/2022 7:59 AM [facility] Anion Gap 6.0 0.0 - 15.0 mmol/L ATELLICA ANALYZER 11/27/2022 7:[address] [facility] Blood 11/27/2022 6:58 AM CDT 11/27/2022 7:30 AM CDT Ping Mcpherson MD CHEMISTRY ORDERAB LE [facility] [address] [place] [address] from Last 3 Months or Most Recently Relevant to Health Maintenance Advance Directives For more information, please contact: [phone] * Full Code (Latest Code Status on File) Date Activated Date Inactivated Comments 11/26/2022 3:55 AM 11/27/2022 11:16 PM Question Answer Comments How was code status determined? Patient Care Teams Piper Helper Relationship Specialty Start Date End Date , Not Listed no address PCP - General Internal Medicine 11/26/22
--- OUTSIDE RECORDS SUMMARY | 2023-10-01 11:18 | XMS_ITS | Encounter Summary ---
Author Organization [facility] Address [address] [place] [address] Care Team Providers Care Railroad Crane Operator Name Role Phone Greg Bettencourt MD Primary Care Provider [phone] [phone] Reason for Referral * (Routine) - New Request Specialty Diagnoses / Procedures Referred By Fide t Referred To Contact Diagnoses Primary osteoarthritis of both first carpometacarpal joints Procedures Triamcinolone Acet Inj Nos: (per 10 mg) Hans Gasca MD [address] [place] [address] Referral ID Status Reason Start Date Expiration Date V isits Requested Visits Authorized [id number] New Request 08/26/2023 11/24/2024 1 1 Reason for Visit * Reason Comments Follow-up Encounter Details Date Type Department Care Team (Late st Contact Info) Description 08/26/2023 11:15 AM CDT Office Visit [facility] [address] [place], [place] [id number] Hans Gasca MD [address] [place] [address] CREST syndrome (HRC) (Primary Dx); Inflammatory polyarthropathy (HRC); Primary osteoarthritis of both first carpometacarpal joints; [facility] current use of therapeutic drug Social History [...] Sign Reading Time Taken Comments Blood Pressure 132/79 08/26/2023 11:09 AM CDT Pulse 79 08/26/2023 11:09 AM CDT Temperature 36.9 ??C (98.4 ??F) 08/26/2023 11:09 AM C DT Respiratory Rate - - Oxygen Saturation - - Inhaled Oxygen Concentration - - Weight - - Height - - Body Mass Index - - documented in this encounter Progress Notes * Hans Gasca MD - 08/26/2023 11:15 AM CDT RHEUMATOLOGY RECHECK This note was generated with voice activated ladle mechanic software and may contain typographical and word [...] dysmotility. She gets her primary care through [facility] [employer] system. She is status post left knee replacement April,. She is up-to-date on the shingles vaccine. She had a DEXA scan at [facility] clinics I believe in [...] on amlodipine, joint inflammation controlled on methotrexate. She does continue Celebrex daily for pain. She gets mild Raynaud's but no digital ulceration. She denies visibly swollen joints. No shortness of breath or cough. No worsening in swallowing function. She gets some mild leg edema likely from the amlodipine. Echocardiogram May, showed no signs of pulmonary hypertension. In November, she would a traumatic left distal tibia fracture required surgery with breana and screw fixation, it has been a long recovery, she still has some edema of the left lower leg. In terms of her hands, those are doing well on methotrexate, she denies any major Raynaud's, she does continue Celebrex. Monitoring labs are reviewed. We've typically done bilateral 1st CMC cortisone injections. We had her try split dose methotrexate because of some peculiar arthralgia she would get the day she takes methotrexate. She is again having pain at the bilateral 1st CMC. This is a three-month follow-up visit. She did monitoring labs today CBC AST creatinine. Interval history is reviewed. All of the above is stable. She is having pain at the pqsb-[id number]-right 1st CMC joints and desires injections for those. SH: Nonsmoker PMH: Updated in EMR MEDS: Updated in EMR but notable for: Methotrexate 17.5 mg weekly (split dose), amlodipine 10 mg daily, omeprazole, Celebrex 200 [...] amlodipine 10: Left midfoot pain PLAN: 1: Continue methotrexate, amlodipine, Celebrex. She has upcoming cataract surgery, from my standpoint nothing needs to be held, Celebrex does not have anti-platelet activity. 2: She did her monitoring labs CBC AST creatinine, will await those results. 3: She would like cortisone injections for the 1st CMC joints bilateral. After verbal consent and sterile prep, the left and then the right 1st CMC joint were each injected with 10 mg of triamcinolone and 0.3 mL of lidocaine. She tolerated them well. Follow-up in 3 months. documented in this encounter Plan of Treatment Upcoming Encounters Date Type Department Care Team (Late st Contact Info) Description 11/30/2023 2:45 PM CDT Appointment [facility] [address] [place] [address] Hans Gasca MD [address] [place] [address] documented as of this encounter Visit Diagnoses Diagnosis CREST syndrome (HRC)- Primary Systemic sclerosis Inflammatory polyarthropathy (HRC) Unspecified inflammatory polyarthropathy Primary osteoarthritis of both first carpometacarpal joints Primary localized osteoarthrosis, hand [facility] current use of therapeutic drug documented in this encounter Care Teams Railroad Crane Operator Relationship Specialty Start Date End Date Greg Bettencourt MD [address] [place] [address] PCP - General 03/21/13 documented as of this encounter
--- OUTSIDE RECORDS SUMMARY | 2023-10-01 11:18 | XMS_ITS | Clinical Summary ---
Author Organization [facility] Address [address] [place] [address] Care Team Providers Care Hospice Social Worker Name Role Phone Greg Bettencourt MD Primary Care Provider [phone] Source Comments You are receiving this document as you are listed as the primary care provider,follow-up provider, or the patient has been referred to you for consultation.This is in compliance with the Medicare and[facility] EHR Incentive Program,which states Providers who transition their patient to another setting of careor provider of care or refers their patient to another provider of care shouldprovide summary care record for each transition of care or referral. [employer] Allergies No known active allergies Medications Medication Sig Dispensed Refills Start Date End Date Status sertraline (AKA ZOLOFT) 50 MG tablet Take 1 Tablet (50 mg) by mouth daily. 04/23/2011 Active Multiple Vitamins-Minerals (MULTIVITAMIN OR) Take 1 tablet by mouth daily (every 24 hours). 04/23/2011 Active cephalexin (KEFLEX) 500 MG capsule [...] EVERY DAY 90 Tablet 3 07/12/2021 Active omeprazole (PRILOSEC) 20 MG capsule TAKE [...] aneurysm without rupture 022 Chronic fatigue 01/18/2020 [facility] current use of therapeutic drug 2018 Primary osteoarthritis of both first carpometaca rpal joints 02/03/2018 Primary osteoarthritis of fi rst carpometacarpal joint of right hand 01/28/2017 Primary osteoarthritis of both hands 01/28/2016 Rotator cuff syndrome 10/02/2014 Bilateral carpal tunnel syndrome 10/02/2014 Other synovitis and tenosynovitis, multiple site s 03/27/2014 Overview: Other tenosynovitis of hand and wrist GERD (gastroesophageal reflux disease) 2 CREST syndrome 10/01/2011 Inflammatory polyarthropathy 06/25/2011 Overview: Unspecified inflammatory polyarthropathy (HRC) [facility] current use of non -steroidal anti-inflammatories (NSAID) 06/25/2011 Overview: Encounter for long-term (current) use of other medications Raynaud's syndrome 04/23/2011 Trigger finger, acquired 04/23/2011 Overview: Trigger finger (acquired) Pain in joint, hand 04/23/2011 Resolved Problems Problem Noted Date Diagnosed Date Resolved Date Nonspecific immunological findings 04/23/2011 01/18/2020 Overview: Positive NADINE - centromere Rheumatoid arthritis 024 Overview: This problem was marked as resolved by a user in a SmartForm. Encounters Date Type Department Care Team Description 08/26/2023 11:15 AM CDT Office Visit [facility] [address] [place] [address] Hans Gasca MD CREST syndrome (HRC) (Primary Dx); Inflammatory polyarthropathy (HRC); Primary osteoarthritis of both first carpometacarpal joints; [facility] current use of therapeutic drug 08/26/2023 10:20 AM CDT Lab Visit [facility] [address] [place] [address] Inflammatory polyarthropathy (HRC) from Last 3 Months Immunizations Name Administration Dates Next Due Flu Vac (3+ yrs) 01/26/2018,01/16/2014, 3 Flu Vac Preserv Free (3+yrs) 2012, 01/28/2012,01/29/2011, 010,01/17/2009 Influenza IIV3 (Trivalent) F luzone Highdose, 65+ Yrs (65207) 01/14/2022,01/02/2019 Influenza IIV4 (Quadrivalent ) 0.5mL (19211) 03/09/2023,01/21/2021,01/02/2019, 018,01/13/2018,01/28/2017,01/07/2016,,01/17/2014,01/13/2013,01/28/2012 ,01/29/2011,02/12/2010,02/01/2009,2008,11/01/2004 Influenza IIV4 (Quadrivalent ) Fluad, 65+ Yrs 03/09/2023,01/21/2021,01/12/2020 Influenza IIV4 (Quadrivalent ) Fluzone, 65+ Yrs 01/14/2022 PCV20 ([id number]) 04/29/2023 PPSV23 (Pneumovax) 04/02/2021 Pfizer Bivalent 12+ 03/25/2022 Pfizer Monovalent 12+ Purple Top 02/14/2021,03,06/26/2020 Td (7+ yrs) 04/02/2021 Tdap 09/05/2010 Zoster [...] 08/26/2023 11:09 AM C DT Respiratory Rate 16 04/08/2021 10:18 AM VALVE SEATER OPERATOR Oxygen Saturation 94% 04/08/2021 10:31 AM VALVE SEATER OPERATOR Inhaled Oxygen Concentration - - Weight 73.5 kg (162 lb) 11/12/2022 1:01 PM CDT Height 162.6 cm (5' 4) 06/16/2022 2:57 PM VALVE SEATER OPERATOR Body Mass Index 27.81 06/16/2022 2:57 PM VALVE SEATER OPERATOR Plan of Treatment Upcoming Encounters Date Type Department Care Team (Late st Contact Info) Description 11/30/2023 2:45 PM CDT Appointment [facility] [address] [place], [place] [address] Hans Gasca MD [facility] [place] [address] Health Maintenance Due Date Last Done Comments Colon Cancer Screening Plan Due 1955 Hep C Screening (Preventive Services) 1955 Medicare Annual Wellness Visit 1955 Mammogram 1955 COVID-19 Vaccine ( season) 2022 03/25/2022, 02/14/2021, 07/17/2020, Additional history exists Cholesterol 04/05/2026 04/05/2021 DTaP/Tdap/Td (3 - Tdap) 04/02/2031 04/02/2021, 09/05 Dexa Completed 03/16/2012 Zoster/Shingles Completed 12/04/2017, 08/18, 08/04/2017, Additional history exists Influenza Completed 03/09/2023, 02/19, 01/14/2022, Additional history exists Pneumococcal 65+ Yrs Completed 04/29/2023, 04/02/20 21 HepA Aged Out No longer eligi ble [...] Associated Diagnosis Comments COMPLETE BLOOD COUNT-W/DIFF Routine 08/26/2023 10:37 AM CDT Inflammatory polyarthropathy (HRC) CBC AND DIFFERENTIAL PANEL Routine 08/26/2023 10:37 AM CDT Inflammatory polyarthropathy (HRC) AST Routine 08/26/2023 10:37 AM CDT Inflammatory polyarthropathy (HRC) CREATININE / GFR Routine 08/26/2023 10:3 7 AM CDT Inflammatory polyarthropathy (HRC) LIPID PANEL & DIRECT LDL (IF NEEDED) Routine 04/05/2021 9:16 AM VALVE SEATER OPERATOR Thoracic aortic aneurysm without rupture (HRC) Routine health maintenance DXA BONE DENSITY STUDY 1+ SITS AXIAL Routine 03/16/2012 9:58 PM VALVE SEATER OPERATOR Encounter for long-term (current) use of steroids Post-menopausal Symptomatic menopausal or female climacteric states from Last 3 Months or Most Recently Relevant to Health Maintenance Results * Creatinine / GFR (08/26/2023 10:37 AM CDT) Pathologist [facility] Creatinine 0.65 0.55 - 1.02 mg/dL 08/26/2023 12:37 PM T [facility] GFR, Estimated >60 >60 mL/min/1.7 3m2 08/26/2023 12:37 PM T [facility] Blood Venipuncture / Unknown 08/26/2023 10:37 AM CDT 08/26/2023 10:37 AM CDT Hans Gasca MD LAB_1 [facility] [address] [place] [address] * (ABNORMAL) Complete Blood Count-W/Diff (08/26/2023 10:37 AM CDT) WBC 5.9 3.5 - 10.5 x10(9)/L 08/26/2023 10:39 AM CDT [facility] RBC 3.67(L) 3.90 - 5.03 x10(12)/L 08/26/2023 10:39 AM CDT [facility] Hemoglobin 12.5 12.0 - 15.5 g/dL 08/26/2023 10:39 AM T [facility] HCT 37.5 34.9 - 44.5 % 08/26/2023 10:39 AM CDT [facility] MCV 102.2(H) 80.0 - 100.0 fL 08/26/2023 10:39 AM [facility] MCH 34.1(H) 27.6 - 33.3 pg 08/26/2023 10:39 AM [facility] MCHC 33.3 31.5 - 35.2 g/dL 08/26/2023 10:39 AM [facility] RDW 13.2 11.9 - 15.5 % 08/26/2023 10:39 AM [facility] Platelets 212 150 - 450 x10(9)/L 08/26/2023 10:39 AM [facility] Automated NRBC 0 <=0 /100 WBC 08/26/2023 10:39 AM [facility] Neutrophil Absolute 4.0 1.7 - 7.0 10(9)/L 08/26/2023 10:39 AM [facility] Lymphocyte Absolute 1.2 1.0 - 4.8 10(9)/L 08/26/2023 10:39 AM [facility] Monocyte Absolute 0.5 0.2 - 0.9 10(9)/L 08/26/2023 10:39 AM [facility] Eosinophil Absolute 0.2 0.0 - 0.5 10(9)/L 08/26/2023 10:39 AM [facility] Basophil Absolute 0.0 0.0 - 0.3 10(9)/L 08/26/2023 10:39 AM [facility] Immature Granulocyte % 0.3 0.0 - 0.5 % 08/26/2023 10:39 AM [facility] Blood Venipuncture / Unknown 08/26/2023 10:37 AM CDT 08/26/2023 10:37 AM CDT Hans Gasca MD LAB_1 [facility] [address] [place] [address] * AST (08/26/2023 10:37 AM CDT) AST (SGOT) 32 10 - 40 U/L 08/26/2023 12:37 PM CDT [facility] Blood Venipuncture / Unknown 08/26/2023 10:37 AM CDT 08/26/2023 10:37 AM T Hans Gasca MD LAB_1 Performing Organization Address [facility]/ZIP Co de Phone Number [facility] [address] [place] [address] * Lipid Panel and Direct LDL(If Needed) (04/05/2021 9:16 AM VALVE SEATER OPERATOR) [facility] Cholesterol 171 0 - 199 mg/dL 04/05/2021 11:12 AM [facility] Triglyceride 95 <=149 mg/dL 04/05/2021 11:12 AM [facility] HDL Cholesterol 85 >=40 mg/dL 11:12 AM [facility] LDL, Calculated 67 <130 mg/dL 11:12 AM [facility] Non HDL Chol, Calculated 86 <=159 mg/dL 04/05/2021 11:12 AM [facility] Cholesterol/HDL Ratio 2.0 04/05/2021 11:12 AM [facility] Hours Fasting 12 04/05/2021 11:12 AM [facility] Blood Venipuncture / Unknown 04/05/2021 9:16 AM VALVE SEATER OPERATOR 04/05/2021 9:39 AM [facility] Winston Brooks MD LAB_1 Performing Organization Address [facility]/ZIP Co de Phone Number [facility] [address] [place] [address], [facility] [phone] from Last 3 Months or Most Recently Relevant to Health Maintenance Care Teams Hospice Social Worker Relationship Specialty Start Date End Date Greg Bettencourt MD [address] [place] [id number] PCP - General 03/21/13
--- NOTE | 2023-10-01 11:30 | CRLHL7_ITS ---
For Patients: As a result of the Century Cures Act, medical imaging exams and procedure reports are released immediately into your electronic medical record. You may view this report before your referring provider. If you have questions, please contact your health care provider. BILATERAL SCREENING MAMMOGRAM WITH COMPUTER-AIDED DETECTION AND TOMOSYNTHESIS TECHNIQUE: CC and MLO views were obtained. These mammographic images have been obtained using full-field digital technique. These mammographic images were interpreted with the benefit of computer-aided detection. Breast Tomosynthesis was used in this interpretation. COMPARISON FILM: 05/06/22, 02/26/21, 01/31/20. FINDINGS: There are scattered areas of fibroglandular density. IMPRESSION: There is no radiographic evidence for malignancy. ASSESSMENT: BI-RADS Category 1: Negative RECOMMENDATION: Routine screening mammogram in 1 year. A lay language report of this examination will be provided to the patient. Reno Wilburn M.D. Diagnostic Radiologist [email or web address] SP/Dictated by: Reno Wilbrun MD @ 10/05/2023 11:25:00 AM (Electronically Signed)
== END 2023-10-01 11:16 | disposition home or self-care (01) ==
LOC: MAMMO 11:16
PROVIDERS: PCP Physician Assistant Medical; Visit Provider Emergency Medicine
DX: Z12.31 Encounter for screening mammogram for malignant neoplasm of breast (principal)
CPT/HCPCS: 77063; 77067

== ENCOUNTER 2024-05-26 10:40 | Outpatient (CLI) | payer MEDICARE, BC, SELFPAY | END 2024-05-26 10:41 | disposition home or self-care (01) | LOC: NFLDREF 06-01 01:44 | PROVIDERS: PCP Physician Assistant Medical; Referring Provider Physician Assistant Medical; Visit Provider Physician Assistant Medical | DX: I10 Essential (primary) hypertension (principal); E78.2 Mixed hyperlipidemia; G57.90 Unspecified mononeuropathy of unspecified lower limb; R20.2 Paresthesia of skin; M85.89 Other specified disorders of bone density and structure, multiple sites; G62.9 Polyneuropathy, unspecified; K21.9 Gastro-esophageal reflux disease without esophagitis; G57.93 Unspecified mononeuropathy of bilateral lower limbs | CPT/HCPCS: 80053; 80061; 82306; 82607; 82728; 84443 ==

== ENCOUNTER 2024-06-16 12:47 | Outpatient (CLI) | payer MEDICARE, BC, SELFPAY | END 2024-06-16 12:48 | disposition home or self-care (01) | LOC: RAD 12:48 | PROVIDERS: PCP Physician Assistant Medical; Visit Provider Physician Assistant Medical | DX: M85.89 Other specified disorders of bone density and structure, multiple sites (principal); Z78.0 Asymptomatic menopausal state | CPT/HCPCS: 77080 ==